=== PATIENT | male | born 1990 | race Two or more races ===

== ENCOUNTER 2017-09-09 22:22 | Emergency (ER) | payer MEDICARE, OTHER ==
[~2017-09-09] VITALS: Ht 165.1 cm; Wt 88.5 kg
[2017-09-09 22:47] VITALS: BP 108/67
[2017-09-10] MEDS ORDERED: KEFLEX500 MG ORAL (00:35)
[2017-09-10] MEDS ORDERED: BACTRIM DS TAB1 EAC1 ORAL (00:35)
[2017-09-10 00:50] VITALS: BP 108/67
--- NOTE | 2017-09-10 07:14 | Emergency Room Report ---
History of Present Illness General Chief Complaint: Skin Rash/Abscess Source: Family Member Present Illness HPI This is a 27-year-old male presented after increased redness and swelling to his right lower extremity. Patient gradual onset of symptoms. The patient had increased pain anterior for the past 2 days. He had not been having any fever. Patient prior history of Down syndrome. Allergies: Coded Allergies: No Known Allergies (Unverified , 09/09/17) Patient History Past Medical History: see triage record Reviewed Nursing Documentation: PMH: Agreed, PSxH: Agreed Review of Systems All Other Systems: negative except mentioned in HPI Physical Exam Vital Signs Date Time Temp Pulse Resp B/P (MAP) Pulse Ox O2 Delivery O2 Flow Rate FiO2 09/09/17 22:30 98.1 73 16 105/67 99 Room Air General Appearance: well appearing, no apparent distress, alert, GCS 15 Head: normocephalic, atraumatic ENT: hearing grossly normal, normal voice Neck: full range of motion, supple Respiratory: no respiratory distress, speaking full sentences Cardiovascular #1: normal inspection, normal peripheral pulses, regular rate, rhythm Gastrointestinal: normal inspection, non tender, soft Musculoskeletal: normal inspection, back normal, no calf tenderness Neurologic: normal inspection, alert, oriented x3, responsive, normal gait Psychiatric: mood/affect normal Skin: no rash, other - erythema to right pretibial area, no abscess Medical Decision Making Diagnostic Impression: Primary Impression: Cellulitis ER Course Patient presented for skin rash. Differential diagnosis included was not limited to abscess, cellulitis, folliculitis, erythema nodosum. Patient was given prescription for oral antibiotics. Patient given Keflex emergency department. The patient is advised to follow up with primary care doctor in 1 -2 days. Patient mom is advised to have patient return if any worsening condition or if any changes in status that are concerning. Other X-Ray Diagnostic Results Other X-Ray Diagnostic Results : # of Views/Limited Vs Complete: 2 View Indication: Pain EP Interpretation: Yes Interpretation: no dislocation, no soft tissue swelling, no fractures Impression: No acute disease Electronically Signed by: Electronically signed by Dr. Paras Reno M.D. Last Vital Signs Date Time Temp Pulse Resp B/P (MAP) Pulse Ox O2 Delivery O2 Flow Rate FiO2 09/10/17 00:50 98.1 88 16 108/67 99 Room Air Status: improved Disposition: HOME, SELF-CARE Condition: Stable Scripts Cephalexin* (KEFLEX*) 500 Mg Capsule 500 MG ORAL Q6H, #28 CAP 0 Refills Prov: Paras Reno 09/10/17 Trimethoprim/Sulfamethoxazole 160/800* (BACTRIM DS TABLET*) 1 Each Tablet 1 TAB ORAL TWICE A DAY, #14 TAB Prov: Paras Reno 09/10/17 Patient Instructions: Cellulitis Paras Reno Sep 10, 2017 07:14
--- NOTE | 2017-09-10 11:46 | Diagnostic Imaging Report ---
Indication: PAIN Technique: 2 views of the right tibia and fibula Comparison: none Findings: No acute fractures. No dislocations. Joint spaces are preserved Impression: Negative This agrees with the preliminary interpretation provided by the emergency room physician
== END 2017-09-10 00:50 | disposition home or self-care (01) ==
LOC: EMR 23:30
DX: L03.115 Cellulitis of right lower limb (principal); R21 Rash and other nonspecific skin eruption
CPT/HCPCS: 99284

== ENCOUNTER 2018-05-19 17:30 | Emergency (ER) | payer MEDICARE, OTHER ==
[~2018-05-19] VITALS: Ht 154.9 cm; Wt 81.6 kg
[~2018-05-19 17:30] MED LIST: BACTRIM DS TAB1 EAC1 ORAL; KEFLEX500 MG ORAL
[2018-05-19] MEDS ORDERED: Lidocaine 1% MPF 10mg/ml 5ml INJ ONE (18:30)
[2018-05-19] MEDS ORDERED: Tetanus/Diptheria/Pertussis Vaccine 0.5ml Syr IM ONE (18:30)
--- NOTE | 2018-05-19 18:46 | Emergency Room Report ---
History of Present Illness General Chief Complaint: Lower Extremity Injury Source: Patient, Medical Record Present Illness HPI 27-year-old male patient presents ER brought in by mother complaining of right big toe pain. Patient has history of Down syndrome. reports patient's foot "slipped" and kicked a chair. Reports nail is coming off his toe. denies hitting his head or loss consciousness. Denies other acute symptoms. Reports pain with ambulation. denies fever, chest pain, shortness of breath. Reports took pain medication. Allergies: Coded Allergies: No Known Allergies (Unverified , 09/09/17) Patient History Past Medical History: see triage record Reviewed Nursing Documentation: PMH: Agreed; PSxH: Agreed Nursing Documentation-PMH Past Medical History: No History, Except For Review of Systems All Other Systems: negative except mentioned in HPI Physical Exam Vital Signs Date Time Temp Pulse Resp B/P (MAP) Pulse Ox O2 Delivery O2 Flow Rate FiO2 05/19/18 17:38 98.2 68 18 113/66 97 Room Air 98.2 Sp02 EP Interpretation: reviewed, normal General Appearance: well appearing, no apparent distress, alert, GCS 15, non- toxic Head: normocephalic, atraumatic Eyes: bilateral eye normal inspection, bilateral eye PERRL ENT: hearing grossly normal, normal pharynx, no angioedema, normal voice, uvula midline, moist mucus membranes Neck: full range of motion Respiratory: lungs clear, normal breath sounds, no rhonchi, no respiratory distress, no accessory muscle use, no wheezing, speaking full sentences Cardiovascular #1: regular rate, rhythm, no edema Cardiovascular #2: 2+ dorsalis pedis (R), 2+ dorsalis pedis (L) Musculoskeletal: back normal, digits/nails normal, gait/station normal, normal range of motion, non-tender, other - right foot, big toe: Nail partially avulsed , no nailbed damage, able to visualize nail bed, tenderness to palpation Neurologic: alert, oriented x3, responsive, motor strength/tone normal, sensory intact Skin: no rash Medical Decision Making PA Attestation Dr. Danielle is my supervising Physician whom patient management has been discussed with. Diagnostic Impression: Primary Impression: Nail avulsion of toe ER Course Pt. presents to the ED c/o toenail avulsion Ddx considered but are not limited to fracture, toenail avulsion, nail bed injury, contusion. Vital signs: are WNL, pt. is afebrile ER COURSE: physical exam shows partially avulsed toenail on left big toe. No nail bed damage. X-ray of left foot shows no acute fracture of toe per the preliminary reading. Discussed result with patient. Consult with Dr. Tena marine fireman. Patient seen and evaluated by Dr. Tena, see his procedure note regarding toenail removal. Instructed to follow-up with Dr. Tena, provided with contact information. Consult Dr. Tena, will provide patient with Keflex at discharge to cover for possible infection. DISCHARGE: Rx provided for Keflex Rx provided for Tylenol At this time pt is stable for d/c to home. Patient is resting comfortably, in no acute distress, nontoxic appearing, talking without difficulty. Patient to take medications as instructed Will provide with patient care instructions and any necessary prescriptions. Care plan and follow-up instructions provided. Patient instructed to follow-up with primary care provider in 3 - 5 days. Patient questions asked and answered. Patient reports understanding and agreement to treatment plan. ER precautions given. Patient instructed to return to ER immediately for any new or worsening of symptoms including but not limited to increasing SOB, persistent fever, chest pain, intractable vomiting. - Please note that this Emergency Department Report was dictated using Javelintranscribing machine operator technology software, occasionally this can lead to erroneous entry secondary to interpretation by the dictation equipment. Other X-Ray Diagnostic Results Other X-Ray Diagnostic Results : X-Ray ordered: left foot # of Views/Limited Vs Complete: 3 View Indication: Pain EP Interpretation: Yes PA Xray: Interpretation reviewed, by supervising MD, and agrees with findings. Interpretation: no dislocation, no soft tissue swelling, no fractures, other - avulsed toenail visible Impression: No acute disease PA Scribe Text Kenji Kitchen PAAnanya Last Vital Signs Date Time Temp Pulse Resp B/P (MAP) Pulse Ox O2 Delivery O2 Flow Rate FiO2 05/19/18 17:38 98.2 68 18 113/66 97 Room Air 98.2 Disposition: HOME, SELF-CARE Condition: Stable Scripts Acetaminophen* (TYLENOL EXTRA STRENGTH*) 500 Mg Tablet 500 MG ORAL Q8H PRN for Prn Headache/Temp > 101, #30 TAB 0 Refills Prov: FidelinaUmair jack 05/19/18 Cephalexin* (KEFLEX*) 500 Mg Capsule 500 MG ORAL EVERY 12 HOURS, #14 CAP 0 Refills Prov: Umair Kitchen 05/19/18 Referrals: NOT CHOSEN IPA/,REFERRING (PCP) Patient Instructions: Fingernail or Toenail Removal, Care After, Ingrown Toenail Additional Instructions: Followup with primary care provider in 3 -5 days. Follow-up with marine fireman at scheduled appointment. Keep clean and dry. Take medications as directed. Patient questions asked and answered. ER precautions given, patient instructed to return to ER immediately for any new or worsening of symptoms. Umair Kitchen May 19, 2018 18:46
[2018-05-19] MEDS ORDERED: Bacitracin Oint UD TOPIC ONE ×2 (21:10→21:15)
[2018-05-19] MEDS ORDERED: CEPHALEXIN500 MG ORAL (21:24)
[2018-05-19] MEDS ORDERED: TYLENOL EXTRA500 MG ORAL (21:24)
[2018-05-19 21:44] VITALS: BP 112/66
--- NOTE | 2018-05-19 22:45 | Consultation ---
DATE OF CONSULTATION: 05/19/2018 APPROXIMATE TIME: 8:45 p.m. CONSULTING PHYSICIAN: Alex Tena M.D. HISTORY OF PRESENT ILLNESS: The patient's summary, the patient's mother states that he stubbed the left big toe on a chair and they states part of that nail tore off. This happened approximately two hours ago. The patient has had 6/10 pain to the left foot. The patient has Down syndrome and cannot care for himself. They came immediately to the hospital for treatment. OBJECTIVE: Upon examination, the patient had a thick mycotic toenail to the left big toe with 80% detachment along the medial and proximal aspect of the nail extending laterally into the proximal lateral nail fold with only 10% of the nail intact distally. There is surrounding erythema, but this is blanchable. No pus. No abscess. No underlying nail bed trauma. No open laceration is noted. There is no drainage. This is very painful to touch and tender. The rest of the toenails are mycotic. Pulses are 2/4 DP and PT pulses. Gross sensation intact to the bilateral foot. DIAGNOSTIC DATA: X-ray was negative for any fracture. ASSESSMENT: 1. Nail injury, left big toe, without laceration. 2. Pain, left big toe. 3. Contusion of left big toe. PLAN: Obtain consent for a procedure to remove the left big toe. PROCEDURE: Total nail avulsion, left big toe. We obtained consent and I anesthetized the left big toe with 4 mL of 1% lidocaine plain. Once I waited 10 minutes, we were able to remove the left big toe using mosquito forceps. This was easily excised and once this was, then flushed it with 20 mL of normal saline, applied bacitracin, 4 x 4, Kerlix, and tape. Sje can wash it, sewn tomorrow, and apply triple antibiotic and a 4 x 4 and tape. Discussed with the patient, I want him to follow up with me in two weeks. Discussed we will give him Keflex 500 mg b.i.d. for two weeks. He can be weightbearing if tolerated to the left foot and a surgical shoe. Discussed that toenail will likely grow out will be thicker. Discussed toenail fungus and how to treat it conservatively. Alex Tena M.D. DR: JONATHAN JOB#: [id number] CC:
--- NOTE | 2018-05-20 11:24 | Diagnostic Imaging Report ---
Indication: Pain, status post fall Technique: 3 views left foot Comparison: none Findings: No acute fractures. No dislocations. The joint spaces are preserved. Impression: Negative
== END 2018-05-19 21:44 | disposition home or self-care (01) ==
LOC: EMR 18:01
DX: S91.201A Unspecified open wound of right great toe with damage to nail, initial encounter (principal); W22.03XA Walked into furniture, initial encounter; Y92.9 Unspecified place or not applicable; Z23 Encounter for immunization
CPT/HCPCS: 90471; 90715; 99284

== ENCOUNTER 2019-01-09 07:32 | Inpatient (IN) | payer MEDICARE, OTHER ==
[~2019-01-09] VITALS: Ht 165.1 cm; Wt 91.6 kg
[2019-01-09] VITALS (7 sets, daily range): BP systolic 102–136; BP diastolic 52–106
[~2019-01-09 07:32] MED LIST changes: +CEPHALEXIN500 MG ORAL; +TYLENOL EXTRA500 MG ORAL
[2019-01-09] MEDS ORDERED: NKM (07:45)
--- NOTE | 2019-01-09 07:45 | NUR ---
ED Nurse Note: PT WALKED IN TO ER TODAY FROM HOME. AOX4. MOTHER AT BEDSIDE. PT C/O UPPER ABDOMINAL AND THROAT PAIN, 10/10 X 3 DAYS AGO. PT ALSO C/O NAUSEA X YESTERDAY AND ONE EPISODE OF DIARRHEA X THIS AM BUT DENIES ANY VOMITING. ACTIVE BOWEL SOUNDS IN ALL QUADRANTS. ABDOMEN NONDISTENDED AND NONTENDER TO PALPATION.
[2019-01-09] MEDS ORDERED: Morphine Sulfate 4mg/ml Inj (IV USE ONLY) IVP ONE (08:00)
--- NOTE | 2019-01-09 08:02 | Emergency Room Report ---
History of Present Illness General Chief Complaint: Abdominal Pain Source: Patient Present Illness HPI 28-year-old male with a history of Down syndrome, no surgical history, presents with epigastric achy constant nonradiating abdominal pain, sore throat, left nasal epistaxis, cough, and subjective fevers for the past 3 days. Patient admits to scratching his nose and having intermittent nosebleeds, denies odynophagia, urinary symptoms, diarrhea, but does report vomiting. Patient and mom reports that he is not on any regular medications, and has not tried anything for symptoms. Allergies: Coded Allergies: No Known Allergies (Unverified , 09/09/17) Patient History Past Medical History: see triage record Reviewed Nursing Documentation: PMH: Agreed; PSxH: Agreed Nursing Documentation-PMH Past Medical History: No History, Except For Review of Systems All Other Systems: negative except mentioned in HPI Physical Exam Vital Signs Date Time Temp Pulse Resp B/P (MAP) Pulse Ox O2 Delivery O2 Flow Rate FiO2 01/09/19 07:40 97.9 109 20 89/56 94 Room Air Sp02 EP Interpretation: reviewed, normal General Appearance: no apparent distress, alert, non-toxic Head: normocephalic Eyes: bilateral eye normal inspection, bilateral eye PERRL, bilateral eye EOMI ENT: normal ENT inspection - Left naris with dried blood, indicative of recent epistaxis, no active bleeding, no posterior oropharyngeal bleeding, hearing grossly normal, normal pharynx, no angioedema, normal voice, uvula midline, dry mucus membranes Neck: normal inspection, full range of motion, supple, thyroid normal, no meningismus, no bony tend, supple/symm/no masses Respiratory: chest non-tender, lungs clear, normal breath sounds, no rhonchi, no respiratory distress, no retraction, no accessory muscle use, no wheezing, chest symmetrical, palpation of chest normal Cardiovascular #1: normal peripheral pulses, regular rate, rhythm Cardiovascular #2: 2+ radial (R), 2+ radial (L) Gastrointestinal: normal inspection, non tender, soft, no mass, no guarding, no rebound Rectal: deferred Genitourinary: normal inspection, no CVA tenderness Musculoskeletal: back normal, gait/station normal, normal range of motion, non- tender, no calf tenderness Neurologic: alert, responsive, clinical administrator III-XII nml as tested - strabismus, motor strength/tone normal, sensory intact, speech normal Psychiatric: mood/affect normal Skin: normal color, no rash, warm/dry, normal turgor Lymphatic: adenopathy - B/L submandibular LAD Medical Decision Making Last Vital Signs Date Time Temp Pulse Resp B/P (MAP) Pulse Ox O2 Delivery O2 Flow Rate FiO2 01/09/19 07:40 97.9 109 20 89/56 94 Room Air Referrals: NOT CHOSEN IPA/,REFERRING (PCP) JOSE HOYT M.D Jan 09, 2019 08:02
--- NOTE | 2019-01-09 08:22 | NUR ---
ED Nurse Note: PT TO CT VIA ZACH.
[2019-01-09 08:24] LABS: HEMATOCRIT 30.6 % (42.0-52.0); HEMOGLOBIN 10.8 G/DL (14.2-18.0); MEAN CORPUSCULAR VOLUME 96 FL (80-99); PLATELET COUNT 29 K/UL (150-450); RED BLOOD COUNT 3.19 M/UL (4.70-6.10); RED CELL DISTRIBUTION WIDTH 15.4 % (11.6-14.8)
--- NOTE | 2019-01-09 08:30 | NUR ---
ED Nurse Note: CALLED LAB TO VERIFY IF STREP A SCREEN CAN BE DONE. PER PROJECT ACCOUNTANT, LAB UNABLE TO RUN STREP A SCREEN. WILL NOTIFTY
[2019-01-09] MEDS ORDERED: Piperacillin/Tazobactam 3.375 GM in D5W 110 ML IV STA (08:42)
[2019-01-09] MEDS ORDERED: Isovue-300 100ml vial INJ PRN ×2 (08:45→18:10)
[2019-01-09 08:51] LABS: ANION GAP 10 mmol/L (5-15); BLOOD UREA NITROGEN 17 mg/dL (7-18); CALCIUM 9.4 MG/DL (8.5-10.1); CARBON DIOXIDE 25 MMOL/L (21-32); CHLORIDE 101 MMOL/L (98-107); CREATININE 1.6 MG/DL (0.55-1.30); SODIUM 136 MMOL/L (136-145)
[2019-01-09 09:02] LABS: ALANINE AMINOTRANSFERASE 70 U/L (12-78); ALBUMIN 3.1 G/DL (3.4-5.0); ALBUMIN/GLOBULIN RATIO 0.8 (1.0-2.7); ALKALINE PHOSPHATASE 252 U/L (46-116); ASPARTATE AMINO TRANSFERASE 132 U/L (15-37); BILIRUBIN,TOTAL 1.2 MG/DL (0.2-1.0)
[2019-01-09 09:04] LABS: BILIRUBIN,DIRECT 0.4 MG/DL (0.0-0.3)
--- NOTE | 2019-01-09 09:09 | Diagnostic Imaging Report ---
EXAM: CT Abdomen and Pelvis Without Intravenous Contrast CLINICAL HISTORY: PAIN TECHNIQUE: Axial computed tomography images of the abdomen and pelvis without intravenous contrast. CTDI is 18.99 mGy and DLP is 1040 mGy-cm. One or more of the following dose reduction techniques were used: automated exposure control, adjustment of the mA and/or kV according to patient size, use of iterative reconstruction technique. COMPARISON: No relevant prior studies available. FINDINGS: Lung bases: Unremarkable. No consolidation. No effusions. ABDOMEN: Liver: Diffusely hypodense liver, suggesting fatty infiltration. Gallbladder and bile ducts: Cholelithiasis without gallbladder wall thickening or ductal dilatation. Pancreas: Unremarkable. No ductal dilation. Spleen: Splenomegaly, with a craniocaudal diameter of 16.6 cm. Nonspecific mild adjacent mesenteric inflammatory stranding extending down the left paracolic gutter. Adrenals: Unremarkable. No mass. Kidneys and ureters: Unremarkable. No obstructing stones. No hydronephrosis. Stomach and bowel: Unremarkable. No obstruction. No mucosal thickening. PELVIS: Appendix: Mild thickening of the appendiceal tip to 7 mm with minimal adjacent inflammatory stranding. Bladder: Mild diffuse urinary bladder wall thickening, most likely related to underdistention. No stones. Reproductive: Unremarkable as visualized. ABDOMEN and PELVIS: Intraperitoneal space: Trace free fluid in the pelvis. No free air. Bones/joints: Bilateral L5 spondylolysis without evidence of spondylolisthesis. No acute fracture. No dislocation. Soft tissues: Unremarkable. Vasculature: Unremarkable. No abdominal aortic aneurysm. Lymph nodes: Scattered subcentimeter mesenteric and retroperitoneal lymph nodes, and scattered bilateral inguinal nodes, likely reactive. No pathologically enlarged lymph nodes. IMPRESSION: 1. Splenomegaly, with a craniocaudal diameter of 16.6 cm. Nonspecific mild adjacent mesenteric inflammatory stranding extending down the left paracolic gutter. 2. Mild thickening of the appendiceal tip to 7 mm with minimal adjacent inflammatory stranding. Cannot completely exclude an early uncomplicated appendicitis. 3. Trace free fluid in the pelvis. 4. Cholelithiasis without gallbladder wall thickening or ductal dilatation. 5. Diffusely hypodense liver, suggesting fatty infiltration. 6. Mild diffuse urinary bladder wall thickening, most likely related to underdistention. Differential diagnosis also includes mild cystitis. No radiodense stones or evidence of obstructive uropathy. 7. Bilateral L5 spondylolysis without evidence of spondylolisthesis.
--- NOTE | 2019-01-09 09:11 | Diagnostic Imaging Report ---
EXAM: XR Chest, 1 View CLINICAL HISTORY: COUGH TECHNIQUE: Frontal view of the chest. COMPARISON: No relevant prior studies available. FINDINGS: Lungs: Mildly increased interstitial markings. Decreased lung volumes, likely related to shallow inspiration. The lungs are otherwise clear without focal consolidation. Pleural space: Unremarkable. The costophrenic angles are sharp. No visible pneumothorax. Heart: Unremarkable. No cardiomegaly. Mediastinum: Unremarkable. Bones/joints: Unremarkable. Tubes, lines and devices: Telemetry leads overlie the thorax. IMPRESSION: Mildly increased interstitial markings. This is nonspecific and may be related to bronchovascular crowding from decreased lung volumes. Differential diagnosis also includes mild pulmonary vascular congestion or a mild interstitial pneumonitis. No focal consolidation.
[2019-01-09 09:23] LABS: APPEARANCE,URINE CLEAR; BILIRUBIN, URINE NEGATIVE (NEGATIVE); COLOR,URINE BROWN; GLUCOSE, URINE (UA) NEGATIVE (NEGATIVE); KETONES,URINE 1+ (NEGATIVE); LEUKOCYTE ESTERASE ,URINE 1+ (NEGATIVE); NITRITE,URINE NEGATIVE (NEGATIVE); PH,URINE 5 (4.5-8.0); PROTEIN,URINE 3+ (NEGATIVE); UROBILINOGEN,URINE 1 MG/DL (0.0-1.0)
--- NOTE | 2019-01-09 09:36 | NUR ---
ED Nurse Note: PT BACK TO CT VIA ZACH
--- NOTE | 2019-01-09 09:52 | NUR ---
ED Nurse Note: PT BACK FROM CT VIA ZACH.
--- NOTE | 2019-01-09 10:40 | Diagnostic Imaging Report ---
EXAM: CT Neck With Intravenous Contrast CLINICAL HISTORY: Left facial abscess, facial pain. TECHNIQUE: Axial computed tomography images of the neck with intravenous contrast. CTDI is 21 mGy and DLP is 686 mGy-cm. One or more of the following dose reduction techniques were used: automated exposure control, adjustment of the mA and/or kV according to patient size, use of iterative reconstruction technique. Coronal and sagittal reformatted images were created and reviewed. COMPARISON: No relevant prior studies available. FINDINGS: Oropharynx: Unremarkable. No significant tonsillar enlargement. No peritonsillar abscess. Hypopharynx: Unremarkable. Larynx: Unremarkable. Normal epiglottis. Trachea: Unremarkable. Retropharyngeal space: Unremarkable. Submandibular/parotid glands: Unremarkable. Glands are normal in size. Thyroid: Unremarkable. No enlarged or calcified nodules. Bones/joints: No acute fracture. Soft tissues: Mild skin thickening and subcutaneous stranding overlying the left face maxillary and mandibular regions with no underlying subcutaneous fluid collections or abscess. Vasculature: Unremarkable as visualized. Lymph nodes: Bilateral enlarged submandibular and cervical chain lymph nodes, likely reactive. Sinuses: Mild mucosal thickening in the ethmoid air cells, sphenoid sinus, bilateral maxillary sinuses. No sinus air-fluid levels. Lung apices: Unremarkable as visualized. IMPRESSION: 1. Mild skin thickening and subcutaneous stranding overlying the left face maxillary and mandibular regions with no underlying subcutaneous fluid collections or abscess. This likely represents cellulitis. 2. Bilateral enlarged submandibular and cervical chain lymph nodes, likely reactive.
--- NOTE | 2019-01-09 11:25 | NUR ---
ED Nurse Note: CALLED [facility] FOR PT TRANSFER. RN NOT READY AT THIS TIME. EXTENSION GIVEN TO MAINTENANCE TECHNICIAN 2ND SHIFT FOR CALL BACK.
--- NOTE | 2019-01-09 12:15 | NUR ---
ED Nurse Note: [facility] CALLED FOR PT TRANSFER. REPORT GIVEN TO PADMA LUNA. PT TAKEN UP TO [facility] VIA GURNEY WITH ALL BELONGINGS ACCOMPANIED BY EMT.
--- NOTE | 2019-01-09 14:24 | NUR ---
NURSE NOTES: Received pt from PADMA DOSS at 1230. pt is accompanied by his mom. pt is orient x3. pt is in RA. No SOB or acute respiratory distress noted. pt has intact iv access LAC 20g SL. Pt has bleeding from tong, pain bilateral abdomen, swollen neck and redness on the left side of neck. called Dr franco x3 left massage for secretary specialist AGUILA about admission orders and about V/S and lab results, and pt's condition but hasn't called back yet. charge nurse is aware. all needs attended, bed is locked and is in the lowest position. call light within easy reach. will continue to monitor.
--- NOTE | 2019-01-09 15:39 | NUR ---
NURSE NOTES: Dr franco called back, he is aware about pt ' fever and tachy cardia and all pt's conditions , all orders noted and carried out. will continue to monitor.
--- NOTE | 2019-01-09 16:04 | Cardiac Electrophysiology PN ---
Subjective Subjective [id number] Objective Last 24 Hour Vital Signs Date Time Temp Pulse Resp B/P (MAP) Pulse Ox O2 Delivery O2 Flow Rate FiO2 01/09/19 12:48 100.6 128 21 136/100 (112) 94 01/09/19 12:30 100.6 128 20 136/100 (112) 94 01/09/19 12:14 98.3 106 20 124/76 95 Room Air 01/09/19 09:40 98.4 109 22 119/70 96 Room Air 01/09/19 07:45 98.2 105 20 113/63 96 Room Air 01/09/19 07:45 105 20 Room Air 01/09/19 07:40 97.9 109 20 89/56 94 Room Air Laboratory Tests Test 01/09/19 08:10 White Blood Count 146.0 K/UL (4.8-10.8) *H Red Blood Count 3.19 M/UL (4.70-6.10) L Hemoglobin 10.8 G/DL (14.2-18.0) L Hematocrit 30.6 % (42.0-52.0) L Mean Corpuscular Volume 96 FL (80-99) Mean Corpuscular Hemoglobin 33.9 PG (27.0-31.0) H Mean Corpuscular Hemoglobin Concent 35.4 G/DL (32.0-36.0) Red Cell Distribution Width 15.4 % (11.6-14.8) H Platelet Count 29 K/UL (150-450) L Mean Platelet Volume 8.4 FL (6.5-10.1) Neutrophils (%) (Auto) % (45.0-75.0) Lymphocytes (%) (Auto) % (20.0-45.0) Monocytes (%) (Auto) % (1.0-10.0) Eosinophils (%) (Auto) % (0.0-3.0) Basophils (%) (Auto) % (0.0-2.0) Neutrophils % (Manual) Pending Lymphocytes % (Manual) Pending Platelet Estimate Pending Platelet Morphology Pending Urine Color Brown Urine Appearance Clear Urine pH 5 (4.5-8.0) Urine Specific [place] 1.015 (1.005-1.035) Urine Protein 3+ (NEGATIVE) H Urine Glucose (UA) Negative (NEGATIVE) Urine Ketones 1+ (NEGATIVE) H Urine Blood Negative (NEGATIVE) Urine Nitrite Negative (NEGATIVE) Urine Bilirubin Negative (NEGATIVE) Urine Urobilinogen 1 MG/DL (0.0-1.0) H Urine Leukocyte Esterase 1+ (NEGATIVE) H Urine RBC 0 /HPF (0 - 0) Urine WBC 0-2 /HPF (0 - 0) Urine Squamous Epithelial Cells Few /LPF (NONE/OCC) Urine Bacteria Few /HPF (NONE) Sodium Level 136 MMOL/L (136-145) Potassium Level 4.0 MMOL/L (3.5-5.1) Chloride Level 101 MMOL/L (98-107) Carbon Dioxide Level 25 MMOL/L (21-32) Anion Gap 10 mmol/L (5-15) Blood Urea Nitrogen 17 mg/dL (7-18) Creatinine 1.6 MG/DL (0.55-1.30) H Estimat Glomerular Filtration Rate 52.1 mL/min (>60) Glucose Level 96 MG/DL (74-106) Calcium Level 9.4 MG/DL (8.5-10.1) Total Bilirubin 1.2 MG/DL (0.2-1.0) H Direct Bilirubin 0.4 MG/DL (0.0-0.3) H Aspartate Amino Transf (AST/SGOT) 132 U/L (15-37) H Alanine Aminotransferase (ALT/SGPT) 70 U/L (12-78) Alkaline Phosphatase 252 U/L (46-116) H Total Protein 7.1 G/DL (6.4-8.2) Albumin 3.1 G/DL (3.4-5.0) L Globulin 4.0 g/dL Albumin/Globulin Ratio 0.8 (1.0-2.7) L Lipase 119 U/L (73-393) Ede Alexander MD Jan 09, 2019 16:04
[2019-01-09] MEDS ORDERED: cefTRIAXone 1 GM in D5W 55 ML IVPB SCH (16:30)
--- NOTE | 2019-01-09 17:30 | NUR ---
NURSE NOTES: Dr broussard visited pt and ordered for stat ECG done and result reported to Dr broussard and ordered to transfer pt. Dr VILLAR is aware about consult. pt transfered to [facility]. report given to DONYA/ALIDA.
[2019-01-09 17:33] LABS: INR 1.2 (0.9-1.1)
[2019-01-09 17:44] LABS: HEMATOCRIT 26.8 % (42.0-52.0); HEMOGLOBIN 9.3 G/DL (14.2-18.0); MEAN CORPUSCULAR VOLUME 94 FL (80-99); PLATELET COUNT 11 K/UL (150-450); RED BLOOD COUNT 2.86 M/UL (4.70-6.10); RED CELL DISTRIBUTION WIDTH 15.2 % (11.6-14.8)
--- NOTE | 2019-01-09 17:45 | NUR ---
Received pt from PADMA Wood in stable condition with no cardiopulmonary distress. Pt hooked to monitoring and evaluation advisor. VS as follows: T 101.2 Oral HR 128 bpm SaO2 97% RR 26 and BP 102/63. Pt is AAOx 4 accompanied with parents. Pt on 2L O2 NC. Urinal at bedside. Pt is ambulatory and can use bathroom for BM- however, family states no BM since yesterday. L ac 20g noted running NS at 100ml/hr. Swelling + redness noted on left neck area, and mild tongue bleeding consistent with admission notes. Petechiae noted near groin area and upper arms correlating with low platelet count. Family states petechiae showed up a few days prior to admission. No c/o pain at this time. Placed ice pack below pt's neck to relieve fever. Tylenol was given before transfer. Will continue to monitor pt. Bed is in lowest position. Side rails up x 3. Call light within reach. Addendum: 01/09/19 at 1819 by Daylin Torres RN Late entry: Pt has no belongings.
[2019-01-09] MEDS ORDERED: Vancomycin 1.5gm Premix q24h IVPB SCH (18:00)
[2019-01-09] MEDS ORDERED: Vancomycin 1.5gm Premix 275 ML IVPB SCH (18:11)
--- NOTE | 2019-01-09 19:21 | NUR ---
HAND-OFF: Report given to PADMA Quiñonez. Pt in stable condition.
--- NOTE | 2019-01-09 19:25 | NUR ---
NURSE NOTES: Observed pt lying on the bed. A/O x3. ST with conveyor monitor, HR of 107. On 2L NC, no signs of SOB. Left neck swelling noted and checked CT neck report indicates possible cellulitis and enlarged lymph nodes. Mild tongue bleeding noted. IV on L AC 20G, running NS 100ml/hr. Bed in the lowest position. Side rails up x2. Family member at the bedside. Will continue to monitor.
[2019-01-09] MEDS ORDERED: Piperacillin/Tazobactam 4.5 GM in D5W 110 ML IVPB SCH (22:00)
[2019-01-09] MEDS: Piperacillin/Tazobactam 4.5 GM in D5W 110 ML IVPB SCH (22:16)
--- NOTE | 2019-01-09 23:45 | Consultation ---
DATE OF CONSULTATION: 01/09/2019 CARDIOLOGY CONSULTATION CONSULTING PHYSICIAN: Ede Alexander M.D. ATTENDING PHYSICIAN: Jonah Barahona M.D. REASON FOR CONSULTATION: Tachycardia. HISTORY OF PRESENT ILLNESS: The patient is a 28-year-old gentleman with history of Down syndrome, who presented to the emergency room with epigastric pain as well as sore throat and left nasal epistaxis. The patient has been having fever for the last 2 days. The patient has been scratching his nose. There have been intermittent nosebleeds. The patient initially was found to have blood pressure in the 80s and pulse of 120s. His WBC was more than 140,000. The patient was admitted and Cardiology consultation was requested for further evaluation. Reportedly, the patient had some sort of cancer a few years ago. He was not on any therapy, but reports he had surgery to remove it in his right groin, but there was no obvious scar. REVIEW OF SYSTEMS: Negative other than what was mentioned in the history of present illness. PAST MEDICAL HISTORY: As mentioned above. FAMILY HISTORY: Noncontributory. SOCIAL HISTORY: He lives at home. Does not smoke or drink alcohol. PHYSICAL EXAMINATION: VITAL SIGNS: Blood pressure 136/100, pulse 128, respirations 18, and temperature 100.6. HEAD AND NECK: Showed no JVD. LUNGS: Clear. CARDIOVASCULAR: Shows tachycardic, S1 and S2 with no gallop. ABDOMEN: Soft. EXTREMITIES: No pitting edema. LABORATORY DATA: His labs showed white count of 146,000, hemoglobin 10.8, hematocrit 30, and platelet count is only 29,000. Sodium 136, potassium 4.0, BUN of 17, creatinine 1.6, and glucose of 96. His urinalysis shows 3+ protein and 1+ leukocyte esterase. ASSESSMENT AND PLAN: 1. Tachycardia. In view of the patient's sepsis, elevated white count could be due to underlying infection. The patient was started on ceftriaxone and Zosyn. Further evaluation per ID. I will get an EKG and echocardiogram and check his thyroid function tests. 2. Elevated white count of 146,000 as well as severe thrombocytopenia with platelet count only 29,000. Hematology evaluation is needed. 3. Abdominal pain, elevated bilirubin of 1.2, and elevated AST and alkaline phosphatase. Evaluation per GI. 4. Down syndrome. Thank you very much, Dr. Barahona, for following me to participate in the care of this patient. Please do not hesitate to contact me for any questions regarding my evaluation. Ede Alexander M.D. DR: Martha JOB#: [id number] CC:
[2019-01-10] VITALS: BP 107/60
[2019-01-10 04:00] VITALS: BP 113/67
[2019-01-10] MEDS ORDERED: Vancomycin 1gm in D5W 275ml IVPB SCH (06:00)
[2019-01-10] MEDS: Vancomycin 1 GM in D5W 275 ML IVPB SCH ×2 (06:11→18:33)
[2019-01-10] MEDS: Piperacillin/Tazobactam 4.5 GM in D5W 110 ML IVPB SCH ×3 (06:12→22:50)
--- NOTE | 2019-01-10 07:25 | NUR ---
HAND-OFF: Report given to PADMA Martino. No acute distress noted at this time.
--- NOTE | 2019-01-10 07:26 | NUR ---
NURSE NOTES: Received Patient from Romain Major RN. Patient in bed and awake. On 2L NC. In no respiratory distress. 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 Left side of neck swollen with mild bleeding on the mouth. Mom at bedside. Bed in lowest position with side rails up. Will continue to follow plan of care.
[2019-01-10 07:34] LABS: HEMATOCRIT 24.2 % (42.0-52.0); HEMOGLOBIN 8.6 G/DL (14.2-18.0); MEAN CORPUSCULAR VOLUME 95 FL (80-99); RED BLOOD COUNT 2.55 M/UL (4.70-6.10); RED CELL DISTRIBUTION WIDTH 15.3 % (11.6-14.8)
[2019-01-10 07:40] LABS: PLATELET COUNT 6 K/UL (150-450); WHITE BLOOD COUNT 28.7 K/UL (4.8-10.8)
[2019-01-10 08:00] VITALS: BP 99/58
--- NOTE | 2019-01-10 09:00 | NUR ---
NURSE NOTES: Dr. Smallwood at bedside and informed him about patient's HGB 8.6 HCT 24.2 PLT 6. Received an order for 1 unit PRBC. Order carried out.
--- NOTE | 2019-01-10 11:56 | NUR ---
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 Bilirubin 1.2, AST 132, Urine Protein 3+, Urine Ketones 1+ ABDOMINAL / PELVIS CT FINDINGS: Liver: Diffusely hypodense liver, suggesting fatty infiltration. Gallbladder and bile ducts: Cholelithiasis without gallbladder wall thickening or ductal dilatation. Spleen: Splenomegaly, with a craniocaudal diameter of 16.6 cm. Nonspecific mild adjacent mesenteric inflammatory stranding extending down the left paracolic gutter. IS:NS x1L IV PIPERACILLIN 110ml IVPB VANCOMYCIN HCI 275 ml IVPB ALBUTEROL 3ml HHN LORAZEPAM 2mg IV MORPHINE 2mg IVP ADMITTED TO SD[facility] DC PLAN: RETURN HOME
[2019-01-10 12:00] VITALS: BP 104/58
--- NOTE | 2019-01-10 13:42 | Infectious Diseases Prog Note ---
Assessment/Plan Problems: (1) Cellulitis of neck Assessment & Plan: severe with significant swelling, will continue zosyn and vancomycin empirically , recommend ENT eval . CT neck no abscess (2) Cellulitis of cheek Assessment & Plan: with no underlying abscess , continue vancomycin and zosyn empirically (3) Sepsis Assessment & Plan: with significant leukocytosis , may need to rule out bone marrow pathology ( ALL, AML) , Will continue vancomycin and zosyn empirically pending blood cultures. recommend hematology eval . (4) Thrombocytopenia Assessment & Plan: rule out bone marrow pathology VS consumption due to sepsis . close monitor of platelets and transfuse if bleeding (5) Appendicitis Assessment & Plan: possible on CT ABD, already on zosyn ,recommend surgical eval Subjective Constitutional: Reports: fever, anorexia HEENT: Reports: other - left cheeck swelling Respiratory: Reports: no symptoms Breasts: Reports: no symptoms Cardiovascular: Reports: no symptoms Gastrointestinal/Abdominal: Reports: no symptoms Genitourinary: Reports: no symptoms Neurologic: Reports: no symptoms Psychiatric: Reports: no symptoms Skin: Reports: other - bruises Endocrine: Reports: no symptoms Hematologic: Reports: swollen lymph nodes, bleeding Allergies: Coded Allergies: No Known Allergies (Unverified , 09/09/17) Subjective feels a little better today , and less febrile Objective Vital Signs Last 24 Hour Vital Signs Date Time Temp Pulse Resp B/P (MAP) Pulse Ox O2 Delivery O2 Flow Rate FiO2 01/10/19 12:00 100.2 108 22 104/58 (73) 96 01/10/19 12:00 Nasal Cannula 2.0 01/10/19 11:16 111 01/10/19 08:02 104 01/10/19 08:00 99.7 107 22 99/58 (72) 98 01/10/19 08:00 Nasal Cannula 2.0 01/10/19 04:00 99.5 108 24 113/67 (82) 97 01/10/19 04:00 Nasal Cannula 2.0 01/10/19 03:20 98.5 01/10/19 00:00 Nasal Cannula 2.0 01/10/19 00:00 99.7 107 24 107/60 (76) 98 01/09/19 21:30 99.2 01/09/19 21:00 99.7 01/09/19 20:53 99.7 01/09/19 20:00 Nasal Cannula 2.0 01/09/19 20:00 107 01/09/19 20:00 102.7 107 24 105/52 (69) 97 01/09/19 17:50 101.2 128 26 102/63 (76) 97 01/09/19 16:40 101.8 01/09/19 16:00 102.6 109 21 133/106 (115) 99 Height (Feet): 5 Height (Inches): 5.00 Weight (Pounds): 200 General Appearance: no acute distress, other - left cheeck and neck swelling and bruises HEENT: atraumatic, anicteric, mucous membranes moist, PERRL, EOMI, pharynx normal, no JVD, other - left neck swelling and cheeck swelling Respiratory/Chest: chest wall non-tender, normal breath sounds, no respiratory distress, no accessory muscle use Cardiovascular: normal peripheral pulses, normal rate, regular rhythm, no gallop/murmur, no JVD Abdomen: normal bowel sounds, soft, non tender, no organomegaly, non distended , no mass, no scars Extremities: no cyanosis, no clubbing Skin: no rash, no lesions, no ulcers 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, alert, responsive Lymphatic: no groin adenopathy, other - neck adenopathy Musculoskeletal: normal muscle bulk, no effusion Microbiology Date/Time Source Procedure Growth Status 01/09/19 09:00 Blood Blood Culture - Preliminary Resulted 01/09/19 08:45 Blood Blood Culture - Preliminary Resulted Laboratory Tests Test 01/09/19 17:10 01/10/19 06:52 White Blood Count 72.0 K/UL (4.8-10.8) #*H 28.7 K/UL (4.8-10.8) #*H Red Blood Count 2.86 M/UL (4.70-6.10) L 2.55 M/UL (4.70-6.10) L Hemoglobin 9.3 G/DL (14.2-18.0) L 8.6 G/DL (14.2-18.0) L Hematocrit 26.8 % (42.0-52.0) L 24.2 % (42.0-52.0) L Mean Corpuscular Volume 94 FL (80-99) 95 FL (80-99) Mean Corpuscular Hemoglobin 32.5 PG (27.0-31.0) H 34.0 PG (27.0-31.0) H Mean Corpuscular Hemoglobin Concent 34.6 G/DL (32.0-36.0) 35.7 G/DL (32.0-36.0) Red Cell Distribution Width 15.2 % (11.6-14.8) H 15.3 % (11.6-14.8) H Platelet Count 11 K/UL (150-450) #L 6 K/UL (150-450) *L Mean Platelet Volume 9.0 FL (6.5-10.1) 12.3 FL (6.5-10.1) H Neutrophils (%) (Auto) % (45.0-75.0) % (45.0-75.0) Lymphocytes (%) (Auto) % (20.0-45.0) % (20.0-45.0) Monocytes (%) (Auto) % (1.0-10.0) % (1.0-10.0) Eosinophils (%) (Auto) % (0.0-3.0) % (0.0-3.0) Basophils (%) (Auto) % (0.0-2.0) % (0.0-2.0) Neutrophils % (Manual) Pending Pending Lymphocytes % (Manual) Pending Pending Platelet Estimate Pending Pending Platelet Morphology Pending Pending Reticulocyte Count 0.4 % (0.0-2.0) Haptoglobin Pending Prothrombin Time 12.7 SEC (9.30-11.50) H Prothromb Time International Ratio 1.2 (0.9-1.1) H Fibrinogen 288 mg/dL (200-400) Uric Acid 10.9 MG/DL (2.6-7.2) H Lactate Dehydrogenase 1722 U/L (81-234) H Vitamin B12 Level 811 PG/ML (193-986) Folate 16.8 NG/ML (8.6-58.9) Homocystine Pending CBC Comment See comment Pro-B-Type Natriuretic Peptide 2534 pg/mL (0-125) H Thyroid Stimulating Hormone (TSH) 1.962 uiU/mL (0.358-3.740) Free Thyroxine 0.97 NG/DL (0.76-1.46) Current Medications Medications (Trade) Dose Ordered Sig/Curtis Route PRN Reason Start Time Stop Time Status Last Admin Dose Admin Acetaminophen (Tylenol) 650 mg Q4H PRN ORAL Mild Pain/Temp > 100.5 01/09/19 18:10 02/08/19 18:09 01/10/19 12:41 Albuterol/ Ipratropium (Albuterol/ Ipratropium) 3 ml Q4HRT HHN 01/10/19 15:00 01/15/19 14:59 Iopamidol (Isovue-300 100ml) 100 ml NOW PRN INJ Radiology Procedure 01/09/19 18:10 01/10/19 18:09 Piperacillin Sod/ Tazobactam Sod 4.5 gm/Dextrose 110 ml @ 27.5 mls/hr EVERY 8 HOURS IVPB 01/09/19 22:00 01/14/19 21:59 01/10/19 06:12 Sodium Chloride 1,000 ml @ 100 mls/hr Q10H IV 01/09/19 18:10 02/08/19 18:09 01/10/19 05:43 Vancomycin HCl (Vanco rx to dose) 1 ea DAILY PRN MISC Per rx protocol 01/10/19 09:00 02/08/19 16:14 Vancomycin HCl 1 gm/Dextrose 275 ml @ 183.708 mls/hr Q12HR@0600,1800 IVPB 01/10/19 06:00 01/15/19 05:59 01/10/19 06:11 Bradley Mccord M.D. Jan 10, 2019 13:42
[2019-01-10] MEDS: Albuterol/Ipratropium 3ml neb HHN SCH ×3 (14:58→22:47)
[2019-01-10 16:00] VITALS: BP 106/64
--- NOTE | 2019-01-10 17:15 | Consultation ---
DATE OF CONSULTATION: 01/09/2019 CONSULTING PHYSICIAN: Bradley Mccord M.D. REQUESTING PHYSICIAN: Jonah Barahona M.D. REASON FOR CONSULTATION: Severe left neck and cheek cellulitis with soft tissue infection complicated with severe sepsis and recommendation for antimicrobial treatment. HISTORY OF PRESENT ILLNESS: The patient is a 28-year-old male with past medical history of Down syndrome, who was brought into [facility] emergency room with left cheek and neck significant swelling with bruises and sore throat with left nasal epistaxis. Symptom was associated with cough and fever for almost three days. The patient had itchy nose and intermittent nose bleeding for the last couple of weeks. He does not remember how he developed the swelling in his neck and cheek, but they started about three days ago and they have been getting worse. No injury or trauma to the left neck or cheek and no recent dental work. No skin injury or breakdown. The patient was found to have pulse of 109 with blood pressure of 89/56, concerning for sepsis. His leukocytosis was significantly high at 104,000, so he was given Zosyn in the emergency room and Infectious Disease consultation was requested for antibiotics treatment and further management. As of note, the patient is a poor historian, cannot provide good history. History was mainly obtained from the medical record and partially from his mother at the bedside. REVIEW OF SYSTEMS: A 14-point of systems reviewed, were all negative apart from the one I mentioned above in my History and Physical. PAST MEDICAL HISTORY: Significant for Down syndrome and nose bleeding. PAST SURGICAL HISTORY: Negative. SOCIAL HISTORY: The patient lives with mother at home. No recent drugs, tobacco, or alcohol. ALLERGIES: No known drug allergies. MEDICATIONS: The patient received Zosyn in the emergency room. For the rest of his medications, please refer to MAR. LABORATORY DATA: Labs showed white count of [id number], hemoglobin of 10.8, and platelet count of 29,000. BUN of 17 and creatinine of 1.6. AST of 132, ALT of 70, alkaline phosphatase of 252, and albumin of 3.1. Urinalysis showed +1 leukocyte esterase and a few bacteria. IMAGING: Chest x-ray showed interstitial markings, nonspecific. CT scan of abdomen and pelvis without contrast showed splenomegaly with mesenteric inflammatory stranding and mild thickening of the appendiceal tip with minimal adjacent inflammatory stranding, trace free fluid in the pelvis, cholelithiasis without gallbladder wall thickening, and hypodense liver. Neck CT scan showed skin thickening and subcutaneous stranding, overlying the left face, maxillary, and mandibular region with no underlying subcutaneous fluid collections or abscess. Bilaterally enlarged submandibular and cervical chain lymph nodes, likely reactive. PHYSICAL EXAMINATION: VITAL SIGNS: Temperature 101.2, pulse 128, respirations 26, blood pressure 102/63, pulse oximetry 97% on 2 L nasal cannula. GENERAL: General young male, morbidly obese with significant left neck and cheek swelling and bruises, lying in bed, ill-looking can, and not in acute distress. HEENT: He had left cheek soft tissue swelling with bruises, local tenderness, no fluctuation. Pupils reactive to light equally. Moist oral mucosa. No exudate or thrush. No decays. NECK: Obese, swollen and tender on the left side with bruises. No fluctuation. Significant lymphocytosis in the submandibular and neck area. CARDIOVASCULAR: Tachycardic. S1, S2 positive. No murmur. LUNG: Clear bilaterally and diminished breathing sounds at the bases with fine crackles. ABDOMEN: Soft, obese, nontender, and nondistended. Normal bowel sounds. No hepatosplenomegaly. No ascites. EXTREMITIES: No edema or cyanosis, but bruises. GENITOURINARY: Normal genitalia. No Bhandari. ASSESSMENT AND RECOMMENDATION: 1. Cellulitis of the neck and cheek, severe with significant swelling. We will start Zosyn and vancomycin empirically. Recommend ENT evaluation. CT neck showed no abscess. 2. Possible appendicitis with tip swelling and reactive inflammatory change. We will start the patient on Zosyn. Recommend surgical evaluation. 3. Sepsis with significant leukocytosis, may need to rule out bone marrow pathology such as a ALL or AML. We will start him on vancomycin and Zosyn empiric coverage pending blood cultures. Recommend Hematology evaluation. 4. Thrombocytopenia, rule out bone marrow pathology versus consumption due to sepsis. Close monitor of platelets and transfuse if bleeding and Hematology evaluation as needed. Thank you for the consult. ID will continue to follow. Please feel free to call with any question. Bradley Mccord M.D. DR: BRENNA JOB#: [id number] CC:
--- NOTE | 2019-01-10 17:39 | Consultation ---
History of Present Illness General Chief Complaint: Abdominal Pain Present Illness Allergies: Coded Allergies: No Known Allergies (Unverified , 09/09/17) Medication History Scheduled Cephalexin* (Keflex*), 500 MG ORAL Q6H Cephalexin* (Keflex*), 500 MG ORAL EVERY 12 HOURS No Known Medications* (NKM - No Known Medications*), 0 ., (Reported) Trimethoprim/Sulfamethoxazole 160/800* (Bactrim Ds Tablet*), 1 TAB ORAL TWICE A DAY Scheduled PRN Acetaminophen* (Tylenol Extra Strength*), 500 MG ORAL Q8H PRN for Prn Headache/ Temp > 101 Patient History Healthcare decision maker Resuscitation status Full Code Advanced Directive on File Physical Exam Last 24 Hour Vital Signs Date Time Temp Pulse Resp B/P (MAP) Pulse Ox O2 Delivery O2 Flow Rate FiO2 01/10/19 16:00 Nasal Cannula 2.0 01/10/19 16:00 97.9 91 22 106/64 (78) 95 01/10/19 15:08 92 21 96 Nasal Cannula 2.0 28 01/10/19 14:59 90 20 98 Nasal Cannula 3.0 32 01/10/19 14:47 90 20 Nasal Cannula 3.0 32 01/10/19 13:45 97.9 01/10/19 12:00 100.2 108 22 104/58 (73) 96 01/10/19 12:00 Nasal Cannula 2.0 01/10/19 11:16 111 01/10/19 08:02 104 01/10/19 08:00 99.7 107 22 99/58 (72) 98 01/10/19 08:00 Nasal Cannula 2.0 01/10/19 04:00 99.5 108 24 113/67 (82) 97 01/10/19 04:00 Nasal Cannula 2.0 01/10/19 03:20 98.5 01/10/19 00:00 Nasal Cannula 2.0 01/10/19 00:00 99.7 107 24 107/60 (76) 98 01/09/19 21:30 99.2 01/09/19 21:00 99.7 01/09/19 20:53 99.7 01/09/19 20:00 Nasal Cannula 2.0 01/09/19 20:00 107 01/09/19 20:00 102.7 107 24 105/52 (69) 97 3/16/19 17:50 101.2 128 26 102/63 (76) 97 Intake and Output 01/09/19 01/10/19 19:00 07:00 Intake Total 2355 ml 1525.0 ml Output Total 1000 ml Balance 2355 ml 525.0 ml Intake Oral 120 ml 240 ml IV Total 2235 ml 1285.0 ml Output Urine Total 1000 ml # Voids 2 2 Laboratory Tests Test 01/10/19 06:52 White Blood Count 28.7 K/UL (4.8-10.8) #*H Red Blood Count 2.55 M/UL (4.70-6.10) L Hemoglobin 8.6 G/DL (14.2-18.0) L Hematocrit 24.2 % (42.0-52.0) L Mean Corpuscular Volume 95 FL (80-99) Mean Corpuscular Hemoglobin 34.0 PG (27.0-31.0) H Mean Corpuscular Hemoglobin Concent 35.7 G/DL (32.0-36.0) Red Cell Distribution Width 15.3 % (11.6-14.8) H Platelet Count 6 K/UL (150-450) *L Mean Platelet Volume 12.3 FL (6.5-10.1) H Neutrophils (%) (Auto) % (45.0-75.0) Lymphocytes (%) (Auto) % (20.0-45.0) Monocytes (%) (Auto) % (1.0-10.0) Eosinophils (%) (Auto) % (0.0-3.0) Basophils (%) (Auto) % (0.0-2.0) CBC Comment See comment Neutrophils % (Manual) Pending Lymphocytes % (Manual) Pending Platelet Estimate Pending Platelet Morphology Pending Pro-B-Type Natriuretic Peptide 2534 pg/mL (0-125) H Thyroid Stimulating Hormone (TSH) 1.962 uiU/mL (0.358-3.740) Free Thyroxine 0.97 NG/DL (0.76-1.46) Height (Feet): 5 Height (Inches): 5.00 Weight (Pounds): 200 Medications Current Medications Medications (Trade) Dose Ordered Sig/Curtis Route PRN Reason Start Time Stop Time Status Last Admin Dose Admin Acetaminophen (Tylenol) 650 mg Q4H PRN ORAL Mild Pain/Temp > 100.5 01/09/19 18:10 02/08/19 18:09 01/10/19 12:41 Albuterol/ Ipratropium (Albuterol/ Ipratropium) 3 ml Q4HRT HHN 01/10/19 15:00 01/15/19 14:59 01/10/19 14:58 Iopamidol (Isovue-300 100ml) 100 ml NOW PRN INJ Radiology Procedure 01/09/19 18:10 01/10/19 18:09 Piperacillin Sod/ Tazobactam Sod 4.5 gm/Dextrose 110 ml @ 27.5 mls/hr EVERY 8 HOURS IVPB 01/09/19 22:00 01/14/19 21:59 01/10/19 13:58 Sodium Chloride 1,000 ml @ 100 mls/hr Q10H IV 01/09/19 18:10 02/08/19 18:09 01/10/19 14:25 Vancomycin HCl (Vanco rx to dose) 1 ea DAILY PRN MISC Per rx protocol 01/10/19 09:00 02/08/19 16:14 Vancomycin HCl 1 gm/Dextrose 275 ml @ 183.708 mls/hr Q12HR@0600,1800 IVPB 01/10/19 06:00 01/15/19 05:59 01/10/19 06:11 Assessment/Plan Assessment/Plan Hematology Oncology Consultation LIZA MD: Jun Medina DOS: 01/10/19 RFC: Anemia, Severe leukocytosis HPI 28-year-old male with a history of Down syndrome, no surgical history, presents with epigastric achy constant nonradiating abdominal pain, sore throat, left nasal epistaxis, cough, and subjective fevers for the past 3 days. Patient admits to scratching his nose and having intermittent nosebleeds, denies odynophagia, urinary symptoms, diarrhea, but does report vomiting. Patient and mom reports that he is not on any regular medications, and has not tried anything for symptoms. Noted to joao kinney a history of potential malignancy, but full history is unknown, says had a inguinal biopsy 4 years ago but was never treated for cancer. At this time have ordered a bone marrow biopsy. Coded Allergies: No Known Allergies (Unverified , 09/09/17) Past Medical History: see triage record Reviewed Nursing Documentation: PMH: Agreed; PSxH: Agreed Past Medical History: No History, Except For Review of Systems: negative except mentioned in HPI Physical Exam General Appearance: A+O x3, NAD HEENT: normocephalic, atraumatic, ++ left mandible cellulitis and swelling Neck: non-tender, normal alignment Respiratory/Chest: chest wall non-tender, lungs clear Cardiovascular/Chest: normal peripheral pulses, normal rate Abdomen: normal bowel sounds, non tender Extremities: normal range of motion Vital Signs Current Medications Medications (Trade) Dose Ordered Sig/Curtis Route PRN Reason Start Time Stop Time Status Last Admin Dose Admin Acetaminophen (Tylenol) 650 mg Q4H PRN ORAL Mild Pain/Temp > 100.5 01/09/19 18:10 02/08/19 18:09 01/10/19 12:41 Albuterol/ Ipratropium (Albuterol/ Ipratropium) 3 ml Q4HRT HHN 01/10/19 15:00 01/15/19 14:59 01/10/19 14:58 Iopamidol (Isovue-300 100ml) 100 ml NOW PRN INJ Radiology Procedure 01/09/19 18:10 01/10/19 18:09 Piperacillin Sod/ Tazobactam Sod 4.5 gm/Dextrose 110 ml @ 27.5 mls/hr EVERY 8 HOURS IVPB 01/09/19 22:00 01/14/19 21:59 01/10/19 13:58 Sodium Chloride 1,000 ml @ 100 mls/hr Q10H IV 01/09/19 18:10 02/08/19 18:09 01/10/19 14:25 Vancomycin HCl (Vanco rx to dose) 1 ea DAILY PRN MISC Per rx protocol 01/10/19 09:00 02/08/19 16:14 Vancomycin HCl 1 gm/Dextrose 275 ml @ 183.708 mls/hr Q12HR@0600,1800 IVPB 01/10/19 06:00 01/15/19 05:59 01/10/19 06:11 Last 24 Hour Vital Signs Date Time Temp Pulse Resp B/P (MAP) Pulse Ox O2 Delivery O2 Flow Rate FiO2 01/10/19 16:00 Nasal Cannula 2.0 01/10/19 16:00 97.9 91 22 106/64 (78) 95 01/10/19 15:08 92 21 96 Nasal Cannula 2.0 28 01/10/19 14:59 90 20 98 Nasal Cannula 3.0 32 01/10/19 14:47 90 20 Nasal Cannula 3.0 32 01/10/19 13:45 97.9 01/10/19 12:00 100.2 108 22 104/58 (73) 96 01/10/19 12:00 Nasal Cannula 2.0 01/10/19 11:16 111 01/10/19 08:02 104 01/10/19 08:00 99.7 107 22 99/58 (72) 98 01/10/19 08:00 Nasal Cannula 2.0 01/10/19 04:00 99.5 108 24 113/67 (82) 97 01/10/19 04:00 Nasal Cannula 2.0 01/10/19 03:20 98.5 01/10/19 00:00 Nasal Cannula 2.0 01/10/19 00:00 99.7 107 24 107/60 (76) 98 01/09/19 21:30 99.2 01/09/19 21:00 99.7 01/09/19 20:53 99.7 01/09/19 20:00 Nasal Cannula 2.0 01/09/19 20:00 107 01/09/19 20:00 102.7 107 24 105/52 (69) 97 01/09/19 17:50 101.2 128 26 102/63 (76) 97 Laboratory Tests Test 01/10/19 06:52 White Blood Count 28.7 K/UL (4.8-10.8) #*H Red Blood Count 2.55 M/UL (4.70-6.10) L Hemoglobin 8.6 G/DL (14.2-18.0) L Hematocrit 24.2 % (42.0-52.0) L Mean Corpuscular Volume 95 FL (80-99) Mean Corpuscular Hemoglobin 34.0 PG (27.0-31.0) H Mean Corpuscular Hemoglobin Concent 35.7 G/DL (32.0-36.0) Red Cell Distribution Width 15.3 % (11.6-14.8) H Platelet Count 6 K/UL (150-450) *L Mean Platelet Volume 12.3 FL (6.5-10.1) H Neutrophils (%) (Auto) % (45.0-75.0) Lymphocytes (%) (Auto) % (20.0-45.0) Monocytes (%) (Auto) % (1.0-10.0) Eosinophils (%) (Auto) % (0.0-3.0) Basophils (%) (Auto) % (0.0-2.0) CBC Comment See comment Neutrophils % (Manual) Pending Lymphocytes % (Manual) Pending Platelet Estimate Pending Platelet Morphology Pending Pro-B-Type Natriuretic Peptide 2534 pg/mL (0-125) H Thyroid Stimulating Hormone (TSH) 1.962 uiU/mL (0.358-3.740) Free Thyroxine 0.97 NG/DL (0.76-1.46) ROS: Difficult to ascertain given mental status # SEVERE Leukocytosis/Elevated white blood cell count, unspecified likely related to underlying infection versus LEUKEMIA or LYMPHOMA --> have reviewed peripheral smear and bandemia/neutrophilia noted --> will eval for DIC process, r/o elev coagulopathy --> continue antibiotics if they have been started by ID team --> have ordered for bone marrow biopsy rule out malignancy --> will discuss with pathology regarding pathology results --> repeat imaging if symptoms worsen --> platelet goal >20k, and hgb goal >7 # Anemia of chronic disease (or of iron deficiency) due to underlying chronic medical issues, multifactorial --> Anemia workup has been ordered --> No evidence of hemolysis is noted, peripheral smear has been reviewed. --> Hgb goal >7. Transfuse prn. --> Epogen or iron at this time is not particularly indicated --> Medications have been reviewed # Cellulitis of the neck with significant swelling --> on abx empirically # Sepsis with significant leukocytosis on abx as per ID --> appreciate id recs The timing of this note does not necessarily reflect the time of the patient was seen Greatly appreciate consultation! Feliz Smallwood MD Jan 10, 2019 17:39
--- NOTE | 2019-01-10 19:15 | NUR ---
HAND-OFF: Report given to Romain Major RN. Patient stable and RN aware patient is receiving 1 unit PRBC.
--- NOTE | 2019-01-10 19:20 | NUR ---
NURSE NOTES: Report received from PADMA Martino. Observed pt getting PRBC, no acute distress noted at this time. Denies any pain. SR with heel reducer. On NC 2L, no signs of sob noted. IV on L AC 20 G, R H 20 G, intact and patent. Bed in the lowest position. Side rails up x2. Will continue to monitor.
[2019-01-10] MEDS ORDERED: Tubing Blood Filter IV ONE (19:35)
[2019-01-10] MEDS ORDERED: NS 275ml ONE (19:35)
[2019-01-10] MEDS ORDERED: Tubing IV Secondary IV ONE (19:35)
[2019-01-10 20:00] VITALS: BP 114/69
--- NOTE | 2019-01-10 23:00 | NUR ---
NURSE NOTES: Pt mother signed consent for bone marrow biopsy. Instruction printed and given in Estonian.
--- NOTE | 2019-01-10 23:50 | NUR ---
NURSE NOTES: Pt had 1 pack of platelet transfusion and no adverse reaction noted. Will continue to monitor.
[2019-01-11] VITALS: BP 126/72
--- NOTE | 2019-01-11 00:20 | NUR ---
NURSE NOTES: Temperature of 100.6 noted and PRN med given. Will continue to monitor.
--- NOTE | 2019-01-11 01:00 | NUR ---
NURSE NOTES: Temperature of 99.1 noted. Observed pt sleeping on the bed. Will continue to monitor.
[2019-01-11] MEDS: Albuterol/Ipratropium 3ml neb HHN SCH ×6 (03:04→22:56)
[2019-01-11 04:00] VITALS: BP 111/58
[2019-01-11] MEDS: Piperacillin/Tazobactam 4.5 GM in D5W 110 ML IVPB SCH ×3 (06:26→21:44)
[2019-01-11] MEDS: Vancomycin 1 GM in D5W 275 ML IVPB SCH (06:49)
--- NOTE | 2019-01-11 07:15 | NUR ---
HAND-OFF: Report given to PADMA Martino.
--- NOTE | 2019-01-11 07:17 | NUR ---
NURSE NOTES: Received patient from Romain Major RN. Patient in bed, awake, and verbally responsive. On cardiac care unit nurse with HR of 109. On 2L NC. In no respiratory distress. Urinal at bedside. Bed in lowest position with side rails up. Will continue to follow plan of care.
[2019-01-11 08:00] VITALS: BP 134/82
[2019-01-11 08:04] LABS: HEMATOCRIT 26.9 % (42.0-52.0); HEMOGLOBIN 9.5 G/DL (14.2-18.0); MEAN CORPUSCULAR VOLUME 95 FL (80-99); PLATELET COUNT 18 K/UL (150-450); RED BLOOD COUNT 2.84 M/UL (4.70-6.10); RED CELL DISTRIBUTION WIDTH 14.6 % (11.6-14.8); WHITE BLOOD COUNT 19.2 K/UL (4.8-10.8)
[2019-01-11 08:07] LABS: ANION GAP 10 mmol/L (5-15); BLOOD UREA NITROGEN 17 mg/dL (7-18); CALCIUM 8.3 MG/DL (8.5-10.1); CARBON DIOXIDE 25 MMOL/L (21-32); CHLORIDE 102 MMOL/L (98-107); CREATININE 1.4 MG/DL (0.55-1.30); SODIUM 137 MMOL/L (136-145)
[2019-01-11] MEDS ORDERED: Morphine Sulfate 2mg/ml Inj(IV/IM USE ONLY) IVP PRN (10:00)
[2019-01-11] MEDS ORDERED: LORazepam Inj 2mg/ml 1ml IV PRN (10:00)
--- NOTE | 2019-01-11 11:55 | PATHOLOGY BONE BARROW ---
Bone Marrow Aspirate & Biopsy . PROCEDURE: Bone Marrow Aspirate and Biopsy INDICATION: Leucocytosis PROCEDURE TIE BINDER: Deepika Medel M.D. CONSENT: Consent was previously obtained from the patients mother. The risks and benefits were re-explained. The patient agreed to undergo the procedure. A TIMEOUT WAS EXECUTED: Yes PROCEDURE SUMMARY: The patient was laid in the side position. The left posterior iliac crest was prepped and draped in a sterile fashion. The crest of the posterior iliac was located, and the skin as well as surface of the bone was anesthetized with 2% lidocaine. An aspirating needle was introduced, the bone marrow aspirate was not obtained due to dry tap. This was withdrawn the coring needle was advanced into the bone cavity. A bone marrow biopsy was obtained without any complications. ESTIMATED BLOOD LOSS: Negligible REPORTS TO FOLLOW DEEPIKA MEDEL Jan 11, 2019 11:55
[2019-01-11 12:00] VITALS: BP 105/42
--- NOTE | 2019-01-11 12:06 | NUR ---
NURSE NOTES: Bone marrow biopsy was done at bedside with pathologist and patient's mother. Patient is stable. No adverse effects. Pressure is put from the area where the biopsy was done. Made Dr. Smallwood aware. Also, informed Dr. Smallwood about patient's PLT of 18.
--- NOTE | 2019-01-11 12:30 | NUR ---
NURSE NOTES: Dressing on the area where biopsy was done is not soiled. Will continue to monitor.
--- NOTE | 2019-01-11 13:29 | Cardiac Electrophysiology PN ---
Assessment/Plan Assessment/Plan 1. Tachycardia. In view of the patient's sepsis, elevated white count could be due to underlying infection. The patient was started on ceftriaxone and Zosyn. Further evaluation per ID. Echo EF 65% 2. Elevated white count of 146,000 as well as severe thrombocytopenia with platelet count only 6,000. Hematology evaluation noted. S/P BM Biopsy 3. Abdominal pain, elevated bilirubin of 1.2, and elevated AST and alkaline phosphatase. Evaluation per GI. 4. Down syndrome. Subjective Subjective Has pain at site of BM Biopsy Objective Last 24 Hour Vital Signs Date Time Temp Pulse Resp B/P (MAP) Pulse Ox O2 Delivery O2 Flow Rate FiO2 01/11/19 09:17 101 18 100 Nasal Cannula 2.0 28 01/11/19 09:10 99 20 93 Room Air 21 01/11/19 08:00 Nasal Cannula 2.0 01/11/19 08:00 98.4 101 20 134/82 (99) 93 01/11/19 07:55 Nasal Cannula 01/11/19 07:55 Nasal Cannula 01/11/19 07:40 100 01/11/19 04:00 98.7 98 24 111/58 (75) 92 01/11/19 04:00 Nasal Cannula 2.0 01/11/19 04:00 112 01/11/19 03:11 100 18 100 Nasal Cannula 2.0 28 01/11/19 03:04 97 18 97 Nasal Cannula 2.0 28 01/11/19 01:19 99.1 01/11/19 00:40 99.1 01/11/19 00:00 Nasal Cannula 2.0 01/11/19 00:00 100.6 113 24 126/72 (90) 96 01/11/19 00:00 126 01/10/19 22:58 99 20 100 Nasal Cannula 2.0 28 01/10/19 22:47 99 20 98 Nasal Cannula 2.0 28 01/10/19 20:00 99 01/10/19 20:00 98.4 95 20 114/69 (84) 97 01/10/19 20:00 Nasal Cannula 2.0 01/10/19 19:17 84 20 100 Nasal Cannula 2.0 28 01/10/19 19:07 92 18 95 Nasal Cannula 2.0 28 01/10/19 16:00 Nasal Cannula 2.0 01/10/19 16:00 97.9 91 22 106/64 (78) 95 01/10/19 15:20 102 01/10/19 15:08 92 21 96 Nasal Cannula 2.0 28 01/10/19 14:59 90 20 98 Nasal Cannula 3.0 32 01/10/19 14:47 90 20 Nasal Cannula 3.0 32 01/10/19 13:45 97.9 Intake and Output 01/10/19 01/11/19 19:00 07:00 Intake Total 1670.833 ml 1222.583 ml Output Total 500 ml 800 ml Balance 1170.833 ml 422.583 ml Intake Oral 200 ml 500 ml IV Total 1470.833 ml 722.583 ml Output Urine Total 500 ml 800 ml # Voids 1 2 Laboratory Tests Test 01/11/19 04:40 White Blood Count 19.2 K/UL (4.8-10.8) H Red Blood Count 2.84 M/UL (4.70-6.10) L Hemoglobin 9.5 G/DL (14.2-18.0) L Hematocrit 26.9 % (42.0-52.0) L Mean Corpuscular Volume 95 FL (80-99) Mean Corpuscular Hemoglobin 33.6 PG (27.0-31.0) H Mean Corpuscular Hemoglobin Concent 35.4 G/DL (32.0-36.0) Red Cell Distribution Width 14.6 % (11.6-14.8) Platelet Count 18 K/UL (150-450) #L Mean Platelet Volume 7.8 FL (6.5-10.1) Neutrophils (%) (Auto) % (45.0-75.0) Lymphocytes (%) (Auto) % (20.0-45.0) Monocytes (%) (Auto) % (1.0-10.0) Eosinophils (%) (Auto) % (0.0-3.0) Basophils (%) (Auto) % (0.0-2.0) Differential Total Cells Counted 100 Neutrophils % (Manual) 10 % (45-75) L Lymphocytes % (Manual) 68 % (20-45) H Monocytes % (Manual) 6 % (1-10) Eosinophils % (Manual) 0 % (0-3) Basophils % (Manual) 0 % (0-2) Blast Cells % 14 % (0-0) *H Band Neutrophils 2 % (0-8) Smudge Cells Occasional Platelet Estimate Decreased L Platelet Morphology Normal Anisocytosis 1+ Sodium Level 137 MMOL/L (136-145) Potassium Level 4.0 MMOL/L (3.5-5.1) Chloride Level 102 MMOL/L (98-107) Carbon Dioxide Level 25 MMOL/L (21-32) Anion Gap 10 mmol/L (5-15) Blood Urea Nitrogen 17 mg/dL (7-18) Creatinine 1.4 MG/DL (0.55-1.30) H Estimat Glomerular Filtration Rate > 60 mL/min (>60) Glucose Level 104 MG/DL (74-106) Calcium Level 8.3 MG/DL (8.5-10.1) L Vancomycin Level Trough 9.9 ug/mL (5.0-12.0) Microbiology Date/Time Source Procedure Growth Status 01/09/19 09:00 Blood Blood Culture - Preliminary Streptococcus Species Resulted 01/09/19 08:45 Blood Blood Culture - Preliminary Streptococcus Species Resulted 01/10/19 10:40 Urine,Clean Catch Urine Culture - Preliminary NO GROWTH Resulted Objective HEAD AND NECK: No JVD. LUNGS: Clear. CARDIOVASCULAR: Tachycardic, S1 and S2 with no gallop. ABDOMEN: Soft. EXTREMITIES: No pitting edema. Ede Alexander MD Jan 11, 2019 13:29
[2019-01-11] MEDS ORDERED: Vancomycin 1 GM in D5W 275 ML IVPB SCH (14:00)
[2019-01-11 16:00] VITALS: BP 121/66
--- NOTE | 2019-01-11 16:56 | General Progress Note ---
Assessment/Plan Assessment/Plan # SEVERE Leukocytosis/Elevated white blood cell count, unspecified likely related to underlying infection versus LEUKEMIA or LYMPHOMA -->01/11: today, saw that the weekend cbc has been addended, and BLASTS are noted on it, up to 65%, have placed order to transfer to higher level of care --> have reviewed peripheral smear and bandemia/neutrophilia noted --> will eval for DIC process, r/o elev coagulopathy --> continue antibiotics if they have been started by ID team --> have ordered for bone marrow biopsy rule out malignancy (has been completed 01/11) --> will discuss with pathology regarding pathology results --> have placed order to transfer to higher level of care as blasts are now noted on the peripheral smear, concerning for leukemia --> platelet goal >20k, and hgb goal >7 # Anemia of chronic disease (or of iron deficiency) due to underlying chronic medical issues, multifactorial --> Anemia workup has been ordered --> No evidence of hemolysis is noted, peripheral smear has been reviewed. --> Hgb goal >7. Transfuse prn. --> Epogen or iron at this time is not particularly indicated --> Medications have been reviewed # Cellulitis of the neck with significant swelling --> on abx empirically # Sepsis with significant leukocytosis on abx as per ID --> appreciate id recs The timing of this note does not necessarily reflect the time of the patient was seen Greatly appreciate consultation! Subjective Constitutional: Denies: no symptoms, chills, diaphoresis, fever, malaise, weakness, other HEENT: Denies: no symptoms, eye pain, blurred vision, tearing, double vision, ear pain, ear discharge, nose pain, nose congestion, throat pain, throat swelling, mouth pain, mouth swelling, other Cardiovascular: Denies: no symptoms, chest pain, edema, irregular heart rate, lightheadedness, palpitations, syncope, other Respiratory: Denies: no symptoms, cough, orthopnea, shortness of breath, SOB with excertion, SOB at rest, sputum, stridor, wheezing, other Gastrointestinal/Abdominal: Denies: no symptoms, abdomen distended, abdominal pain, black stools, tarry stools, blood in stool, constipated, diarrhea, difficulty swallowing, nausea, poor appetite, poor fluid intake, rectal bleeding , vomiting, other Genitourinary: Denies: no symptoms, burning, discharge, frequency, flank pain, hematuria, incontinence, pain, urgency, other Neurologic/Psychiatric: Denies: no symptoms, anxiety, depressed, emotional problems, headache, numbness, paresthesia, pre-existing deficit, seizure, tingling, tremors, weakness, other Endocrine: Denies: no symptoms, excessive sweating, flushing, intolerance to cold, intolerance to heat, increased hunger, increased thirst, increased urine, unexplained weight gain, unexplained weight loss, other Allergies: Coded Allergies: No Known Allergies (Unverified , 09/09/17) Subjective 01/11: today, saw that the weekend cbc has been addended, and BLASTS are noted on it, up to 65%, have placed order to transfer to higher level of care Objective Last 24 Hour Vital Signs Date Time Temp Pulse Resp B/P (MAP) Pulse Ox O2 Delivery O2 Flow Rate FiO2 01/11/19 15:45 99 20 99 Nasal Cannula 2.0 28 01/11/19 15:38 65 20 97 Nasal Cannula 2.0 28 01/11/19 12:00 Nasal Cannula 2.0 01/11/19 12:00 97.7 102 20 105/42 (63) 100 01/11/19 11:44 101 01/11/19 09:17 101 18 100 Nasal Cannula 2.0 28 01/11/19 09:10 99 20 93 Room Air 21 01/11/19 08:00 Nasal Cannula 2.0 01/11/19 08:00 98.4 101 20 134/82 (99) 93 01/11/19 07:55 Nasal Cannula 01/11/19 07:55 Nasal Cannula 01/11/19 07:40 100 01/11/19 04:00 98.7 98 24 111/58 (75) 92 01/11/19 04:00 Nasal Cannula 2.0 01/11/19 04:00 112 01/11/19 03:11 100 18 100 Nasal Cannula 2.0 28 01/11/19 03:04 97 18 97 Nasal Cannula 2.0 28 01/11/19 01:19 99.1 01/11/19 00:40 99.1 01/11/19 00:00 Nasal Cannula 2.0 01/11/19 00:00 100.6 113 24 126/72 (90) 96 01/11/19 00:00 126 01/10/19 22:58 99 20 100 Nasal Cannula 2.0 28 01/10/19 22:47 99 20 98 Nasal Cannula 2.0 28 01/10/19 20:00 99 01/10/19 20:00 98.4 95 20 114/69 (84) 97 01/10/19 20:00 Nasal Cannula 2.0 01/10/19 19:17 84 20 100 Nasal Cannula 2.0 28 01/10/19 19:07 92 18 95 Nasal Cannula 2.0 28 Intake and Output 01/10/19 01/11/19 19:00 07:00 Intake Total 1670.833 ml 1222.583 ml Output Total 500 ml 800 ml Balance 1170.833 ml 422.583 ml Intake Oral 200 ml 500 ml IV Total 1470.833 ml 722.583 ml Output Urine Total 500 ml 800 ml # Voids 1 2 Laboratory Tests 01/11/19 04:40: White Blood Count 19.2H, Red Blood Count 2.84L, Hemoglobin 9.5L, Hematocrit 26.9L, Mean Corpuscular Volume 95, Mean Corpuscular Hemoglobin 33.6H, Mean Corpuscular Hemoglobin Concent 35.4, Red Cell Distribution Width 14.6, Platelet Count 18#L, Mean Platelet Volume 7.8, Neutrophils (%) (Auto) , Lymphocytes (%) ( Auto) , Monocytes (%) (Auto) , Eosinophils (%) (Auto) , Basophils (%) (Auto) , Differential Total Cells Counted 100, Neutrophils % (Manual) 10L, Lymphocytes % (Manual) 68H, Monocytes % (Manual) 6, Eosinophils % (Manual) 0, Basophils % ( Manual) 0, Blast Cells % 14*H, Band Neutrophils 2, Smudge Cells Occasional, Platelet Estimate DecreasedL, Platelet Morphology Normal, Anisocytosis 1+, Sodium Level 137, Potassium Level 4.0, Chloride Level 102, Carbon Dioxide Level 25, Anion Gap 10, Blood Urea Nitrogen 17, Creatinine 1.4H, Estimat Glomerular Filtration Rate > 60, Glucose Level 104, Calcium Level 8.3L, Vancomycin Level Trough 9.9 Height (Feet): 5 Height (Inches): 5.00 Weight (Pounds): 200 Objective Physical Exam General Appearance: A+O x3, NAD HEENT: normocephalic, atraumatic, ++ left mandible cellulitis and swelling Neck: non-tender, normal alignment Respiratory/Chest: chest wall non-tender, lungs clear Cardiovascular/Chest: normal peripheral pulses, normal rate Abdomen: normal bowel sounds, non tender Extremities: normal range of motion Vital Signs Feliz Smallwood MD Jan 11, 2019 16:56
--- NOTE | 2019-01-11 18:54 | Infectious Diseases Prog Note ---
Assessment/Plan Problems: (1) Cellulitis of neck Assessment & Plan: severe with significant swelling, due to invasive streptococcus spp , will continue zosyn empiric treatment for now . recommend ENT eval if symptoms worsen . CT neck no abscess (2) Cellulitis of cheek Assessment & Plan: with no underlying abscess , continue vancomycin and zosyn empirically (3) Sepsis Assessment & Plan: with significant leukocytosis , suspect due to bone marrow pathology ( ALL, AML) , Will continue zosyn empirically pending final blood cultures. had bone marrow biopsy , hematology is following (4) Thrombocytopenia Assessment & Plan: suspect bone marrow pathology and possible consumption due to sepsis . close monitor of platelets and transfuse if bleeding (5) Appendicitis Assessment & Plan: possible on CT ABD, already on zosyn ,recommend surgical eval Subjective Constitutional: Reports: no symptoms, other HEENT: Reports: other - left neck swelling and bruises Respiratory: Reports: no symptoms Breasts: Reports: no symptoms Cardiovascular: Reports: no symptoms Gastrointestinal/Abdominal: Reports: no symptoms Genitourinary: Reports: no symptoms Neurologic: Reports: no symptoms Psychiatric: Reports: no symptoms Skin: Reports: other - bruises Endocrine: Reports: no symptoms Hematologic: Reports: swollen lymph nodes, bleeding Musculoskeletal: Reports: pain Allergies: Coded Allergies: No Known Allergies (Unverified , 09/09/17) Subjective feels a little better today , and less febrile Objective Vital Signs Last 24 Hour Vital Signs Date Time Temp Pulse Resp B/P (MAP) Pulse Ox O2 Delivery O2 Flow Rate FiO2 01/11/19 16:00 97.0 89 22 121/66 (84) 99 01/11/19 16:00 Nasal Cannula 2.0 01/11/19 15:45 99 20 99 Nasal Cannula 2.0 28 01/11/19 15:44 88 01/11/19 15:38 65 20 97 Nasal Cannula 2.0 28 01/11/19 12:00 Nasal Cannula 2.0 01/11/19 12:00 97.7 102 20 105/42 (63) 100 01/11/19 11:44 101 01/11/19 09:17 101 18 100 Nasal Cannula 2.0 28 01/11/19 09:10 99 20 93 Room Air 21 01/11/19 08:00 Nasal Cannula 2.0 01/11/19 08:00 98.4 101 20 134/82 (99) 93 3/18/19 07:55 Nasal Cannula 01/11/19 07:55 Nasal Cannula 01/11/19 07:40 100 01/11/19 04:00 98.7 98 24 111/58 (75) 92 01/11/19 04:00 Nasal Cannula 2.0 01/11/19 04:00 112 01/11/19 03:11 100 18 100 Nasal Cannula 2.0 28 01/11/19 03:04 97 18 97 Nasal Cannula 2.0 28 01/11/19 01:19 99.1 01/11/19 00:40 99.1 01/11/19 00:00 Nasal Cannula 2.0 01/11/19 00:00 100.6 113 24 126/72 (90) 96 01/11/19 00:00 126 01/10/19 22:58 99 20 100 Nasal Cannula 2.0 28 01/10/19 22:47 99 20 98 Nasal Cannula 2.0 28 01/10/19 20:00 99 01/10/19 20:00 98.4 95 20 114/69 (84) 97 01/10/19 20:00 Nasal Cannula 2.0 01/10/19 19:17 84 20 100 Nasal Cannula 2.0 28 01/10/19 19:07 92 18 95 Nasal Cannula 2.0 28 Height (Feet): 5 Height (Inches): 5.00 Weight (Pounds): 200 General Appearance: WD/WN, no acute distress, other - left facial and neck swelling with bruises HEENT: atraumatic, anicteric, mucous membranes moist, PERRL, EOMI, pharynx normal, supple, no JVD, other - left neck swelling Respiratory/Chest: chest wall non-tender, lungs clear, normal breath sounds, no respiratory distress, no accessory muscle use Cardiovascular: normal peripheral pulses, normal rate, regular rhythm, no gallop/murmur, no JVD Abdomen: normal bowel sounds, soft, non tender, no organomegaly, non distended , no mass, no scars Genitourinary: normal external genitalia Extremities: no cyanosis, no clubbing Skin: no rash, no lesions, no ulcers, other - skin bruises Neurologic/Psychiatric: 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, no motor/sensory deficits, alert, oriented x 3, responsive Lymphatic: other - left neck and submandibular lymphaedenopathy Musculoskeletal: normal muscle bulk, no effusion Microbiology Date/Time Source Procedure Growth Status 01/09/19 09:00 Blood Blood Culture - Preliminary Streptococcus Species Resulted 01/09/19 08:45 Blood Blood Culture - Preliminary Streptococcus Species Resulted 01/10/19 10:40 Urine,Clean Catch Urine Culture - Preliminary NO GROWTH Resulted Laboratory Tests Test 01/11/19 04:40 White Blood Count 19.2 K/UL (4.8-10.8) H Red Blood Count 2.84 M/UL (4.70-6.10) L Hemoglobin 9.5 G/DL (14.2-18.0) L Hematocrit 26.9 % (42.0-52.0) L Mean Corpuscular Volume 95 FL (80-99) Mean Corpuscular Hemoglobin 33.6 PG (27.0-31.0) H Mean Corpuscular Hemoglobin Concent 35.4 G/DL (32.0-36.0) Red Cell Distribution Width 14.6 % (11.6-14.8) Platelet Count 18 K/UL (150-450) #L Mean Platelet Volume 7.8 FL (6.5-10.1) Neutrophils (%) (Auto) % (45.0-75.0) Lymphocytes (%) (Auto) % (20.0-45.0) Monocytes (%) (Auto) % (1.0-10.0) Eosinophils (%) (Auto) % (0.0-3.0) Basophils (%) (Auto) % (0.0-2.0) Differential Total Cells Counted 100 Neutrophils % (Manual) 10 % (45-75) L Lymphocytes % (Manual) 68 % (20-45) H Monocytes % (Manual) 6 % (1-10) Eosinophils % (Manual) 0 % (0-3) Basophils % (Manual) 0 % (0-2) Blast Cells % 14 % (0-0) *H Band Neutrophils 2 % (0-8) Smudge Cells Occasional Platelet Estimate Decreased L Platelet Morphology Normal Anisocytosis 1+ Sodium Level 137 MMOL/L (136-145) Potassium Level 4.0 MMOL/L (3.5-5.1) Chloride Level 102 MMOL/L (98-107) Carbon Dioxide Level 25 MMOL/L (21-32) Anion Gap 10 mmol/L (5-15) Blood Urea Nitrogen 17 mg/dL (7-18) Creatinine 1.4 MG/DL (0.55-1.30) H Estimat Glomerular Filtration Rate > 60 mL/min (>60) Glucose Level 104 MG/DL (74-106) Calcium Level 8.3 MG/DL (8.5-10.1) L Vancomycin Level Trough 9.9 ug/mL (5.0-12.0) Current Medications Medications (Trade) Dose Ordered Sig/Curtis Route PRN Reason Start Time Stop Time Status Last Admin Dose Admin Acetaminophen (Tylenol) 650 mg Q4H PRN ORAL Mild Pain/Temp > 100.5 01/09/19 18:10 02/08/19 18:09 01/11/19 13:51 Albuterol/ Ipratropium (Albuterol/ Ipratropium) 3 ml Q4HRT HHN 01/10/19 15:00 01/15/19 14:59 01/11/19 15:43 Piperacillin Sod/ Tazobactam Sod 4.5 gm/Dextrose 110 ml @ 27.5 mls/hr EVERY 8 HOURS IVPB 01/09/19 22:00 01/14/19 21:59 01/11/19 14:06 Sodium Chloride 1,000 ml @ 100 mls/hr Q10H IV 01/09/19 18:10 02/08/19 18:09 01/11/19 10:21 Vancomycin HCl (Vanco rx to dose) 1 ea DAILY PRN MISC Per rx protocol 01/10/19 09:00 02/08/19 16:14 Vancomycin HCl 1 gm/Dextrose 275 ml @ 183.708 mls/hr Q8H IVPB 01/11/19 14:00 01/16/19 13:59 01/11/19 14:06 Bradley Mccord M.D. Jan 11, 2019 18:54
--- NOTE | 2019-01-11 19:15 | Progress Note ---
DATE: 01/11/2019 SUBJECTIVE: This is an elderly male, came with cellulitis and pain. He is currently doing better. PHYSICAL EXAMINATION: VITAL SIGNS: Blood pressure is 134/92, pulse 100, and respirations 18. No fever. CHEST: Bilateral few crackles. CARDIOVASCULAR: Regular rhythm. ABDOMEN: Soft. EXTREMITIES: No CCE. NEUROLOGICAL: Generalized weakness. LABORATORY AND DIAGNOSTIC DATA: White counts are coming down 19,000, hemoglobin 9.5, hematocrit 26, platelets are 18,000. Chemistry panel sodium 137, potassium 4, BUN 17, creatinine , glucose 104. His toxicology report, vancomycin trough was 9. The patient blood cultures are growing Strep species. ASSESSMENT: 1. Cellulitis. 2. Sepsis. 3. Dehydration. PLAN: 1. Consider ID consult. 2. Continue current treatment, vancomycin. 3. Continue albuterol inhaler. 4. Discussed with ID yesterday. Vuaghn Barahona M.D. DR: Bryn JOB#: [id number] CC:
--- NOTE | 2019-01-11 19:25 | NUR ---
HAND-OFF: Report given to Elin Gibson RN. Patient stable.
--- NOTE | 2019-01-11 19:26 | NUR ---
NURSE NOTES: Endorsement received from PADMA Martino. Patient opens eyes spontaneously. On 2 LPM oxygen per nasal cannula. No shortness of breath. Afebrile. With left AC g 20 ongoing NS 100 ml/hr. Head of bed elevated. Bed locked and in low position. Call light within reach. Bed alarm on. Mother at bedside.
[2019-01-11 20:00] VITALS: BP 119/67
[2019-01-12] VITALS: BP 114/70
--- NOTE | 2019-01-12 | NUR ---
NURSE NOTES: Patient asleep. No shortness of breath. Wakes up when called by name. Head of bed kept elevated. Call light within reach. Bed alarm on
[2019-01-12] MEDS: Albuterol/Ipratropium 3ml neb HHN SCH ×6 (02:27→22:44)
--- NOTE | 2019-01-12 03:33 | NUR ---
NURSE NOTES: Bed bath, change of linens done. Patient tolerated activity.
[2019-01-12 04:00] VITALS: BP 104/70
[2019-01-12] MEDS: Piperacillin/Tazobactam 4.5 GM in D5W 110 ML IVPB SCH ×3 (05:37→21:29)
--- NOTE | 2019-01-12 06:54 | NUR ---
HAND-OFF: Report given to PADMA Martino per SBAR.
--- NOTE | 2019-01-12 07:00 | NUR ---
NURSE NOTES: Received patient from Elin Gibson RN. Patient in bed and asleep. On 2L NC. No s/s of respiratory distress. monitoring coordinator in placed. Urinal at bedside. Mother at bedside. Bed in lowest position locked with side rails up. Will continue to follow plan of care.
[2019-01-12 08:00] VITALS: BP 113/61
[2019-01-12 12:00] VITALS: BP 111/56
--- NOTE | 2019-01-12 13:35 | Cardiology Report ---
APPROVED REPORT EXAM: Two-dimensional and M-mode echocardiogram with Doppler and color Doppler. INDICATION Tachycardia M-Mode DIMENSIONS IVSd0.8 (0.7-1.1cm)Left Atrium (MM)3.5 (1.6-4.0cm) LVDd3.2 (3.5-5.6cm)Aortic Root3.4 (2.0-3.7cm) PWd0.8 (0.7-1.1cm)Aortic Cusp Exc.2.0 (1.5-2.0cm) LVDs1.5 (2.5-4.0cm) PWs1.6 cm Technically difficult study due to poor acoustic windows. Study quality precludes accurate assessment of regional wall motion. Normal left ventricular chamber size, systolic function and wall motion. Left ventricular ejection fraction estimated to be 65 %. No evidence of left ventricular hypertrophy. No evidence of pericardial effusion. All other cardiac chamber sizes are within normal limits. Normal appearing aortic, mitral, pulmonic and tricuspid valves. Mild mitral annulus and aortic root calcification. IVC is normal in size with physiological collapse. A color flow and spectral Doppler study was performed and revealed: No aortic insufficiency. No mitral regurgitation. Mitral inflow velocities indicates possible pseudo normalization pattern implying significant left ventricular diastolic dysfunction (Grade II). Trace tricuspid regurgitation. Tricuspid systolic velocities suggests peak right ventricular systolic pressure of 37 mmHg, consistent with mild pulmonary hypertension. Trace pulmonic regurgitation present.
--- NOTE | 2019-01-12 14:00 | NUR ---
NURSE NOTES: Called Dr. Barahona and left a message regarding about to get an order for stool softener for the patient since he has not had a bowel movement since admission. Awaiting for call back.
--- NOTE | 2019-01-12 15:34 | Cardiac Electrophysiology PN ---
Assessment/Plan Assessment/Plan 1. Tachycardia. In view of the patient's sepsis, elevated white count could be due to underlying infection. The patient was started on ceftriaxone and Zosyn. Further evaluation per ID. Echo EF 65%. HR better 2. Elevated white count of 146,000 as well as severe thrombocytopenia with platelet count only 6,000. Hematology evaluation noted. S/P BM Biopsy 3. Abdominal pain, elevated bilirubin of 1.2, and elevated AST and alkaline phosphatase. Evaluation per GI. 4. Down syndrome. Subjective Subjective In SR with no events. Objective Last 24 Hour Vital Signs Date Time Temp Pulse Resp B/P (MAP) Pulse Ox O2 Delivery O2 Flow Rate FiO2 01/12/19 15:25 88 16 98 Nasal Cannula 2.0 28 01/12/19 15:25 28 01/12/19 12:00 Nasal Cannula 2.0 01/12/19 12:00 97.9 90 20 111/56 (74) 98 01/12/19 11:45 92 01/12/19 11:24 85 18 100 Nasal Cannula 2.0 28 01/12/19 11:14 28 01/12/19 11:14 91 16 98 Nasal Cannula 2.0 28 01/12/19 08:00 98.2 96 20 113/61 (78) 92 01/12/19 08:00 Nasal Cannula 2.0 01/12/19 07:51 88 01/12/19 07:41 93 20 100 Nasal Cannula 2.0 28 01/12/19 07:32 28 01/12/19 07:32 99 Nasal Cannula 2.0 28 01/12/19 07:32 85 16 99 Nasal Cannula 2.0 28 01/12/19 07:32 Nasal Cannula 2.0 28 01/12/19 04:00 99.2 104 24 104/70 (81) 95 01/12/19 04:00 98 01/12/19 04:00 Nasal Cannula 2.0 01/12/19 02:38 86 20 100 Nasal Cannula 1.0 24 01/12/19 02:27 74 20 99 Nasal Cannula 1.0 24 01/12/19 00:00 Nasal Cannula 2.0 01/12/19 00:00 90 01/12/19 00:00 98.2 97 24 114/70 (85) 100 01/11/19 23:10 79 20 99 Nasal Cannula 1.0 24 01/11/19 22:56 88 20 98 Nasal Cannula 2.0 28 01/11/19 20:00 88 01/11/19 20:00 97.8 89 24 119/67 (84) 94 01/11/19 20:00 Nasal Cannula 2.0 01/11/19 19:28 85 20 100 Nasal Cannula 1.0 24 01/11/19 19:24 98 Nasal Cannula 2.0 28 01/11/19 19:24 Nasal Cannula 2.0 28 01/11/19 19:21 83 20 98 Nasal Cannula 2.0 28 01/11/19 16:00 97.0 89 22 121/66 (84) 99 01/11/19 16:00 Nasal Cannula 2.0 01/11/19 15:45 99 20 99 Nasal Cannula 2.0 28 01/11/19 15:44 88 01/11/19 15:38 65 20 97 Nasal Cannula 2.0 28 Intake and Output 01/11/19 01/12/19 19:00 07:00 Intake Total 1997.250 ml 1337.5 ml Output Total 680 ml Balance 1317.250 ml 1337.5 ml Intake Oral 440 ml IV Total 1557.250 ml 1337.5 ml Output Urine Total 680 ml # Voids 2 1 Microbiology Date/Time Source Procedure Growth Status 01/10/19 10:40 Urine,Clean Catch Urine Culture - Preliminary NO GROWTH AFTER 24 HOURS Resulted Objective HEAD AND NECK: No JVD. LUNGS: Clear. CARDIOVASCULAR: Tachycardic, S1 and S2 with no gallop. ABDOMEN: Soft. EXTREMITIES: No pitting edema. Ede Alexander MD Jan 12, 2019 15:34
--- NOTE | 2019-01-12 15:46 | Infectious Diseases Prog Note ---
Assessment/Plan Problems: (1) Cellulitis of neck Assessment & Plan: severe with significant swelling, due to invasive streptococcus spp , will continue zosyn empiric treatment for now . recommend ENT eval if symptoms worsen . CT neck no abscess (2) Cellulitis of cheek Assessment & Plan: with no underlying abscess , continue vancomycin and zosyn empirically (3) Sepsis Assessment & Plan: with significant leukocytosis , suspect due to bone marrow pathology ( ALL, AML) , Will continue zosyn empirically pending final blood cultures. had bone marrow biopsy , hematology is following (4) Thrombocytopenia Assessment & Plan: suspect bone marrow pathology and possible consumption due to sepsis . close monitor of platelets and transfuse if bleeding (5) Appendicitis Assessment & Plan: possible on CT ABD, already on zosyn ,recommend surgical eval (6) Lymphocytic leukemia, acute, B- and T-cell Assessment & Plan: based on bone marrow biopsy, complicated with thrombocytopenia and sepsis due to strep pyogenes , oncology is following Subjective Constitutional: Reports: no symptoms HEENT: Reports: no symptoms Respiratory: Reports: no symptoms Breasts: Reports: no symptoms Cardiovascular: Reports: no symptoms Gastrointestinal/Abdominal: Reports: no symptoms Genitourinary: Reports: no symptoms Neurologic: Reports: no symptoms Psychiatric: Reports: no symptoms Skin: Reports: no symptoms Endocrine: Reports: no symptoms Hematologic: Reports: no symptoms Musculoskeletal: Reports: no symptoms Allergies: Coded Allergies: No Known Allergies (Unverified , 09/09/17) Subjective feels better today , with less swelling in his neck , afebrile Objective Vital Signs Last 24 Hour Vital Signs Date Time Temp Pulse Resp B/P (MAP) Pulse Ox O2 Delivery O2 Flow Rate FiO2 01/12/19 15:25 88 16 98 Nasal Cannula 2.0 28 01/12/19 15:25 28 01/12/19 12:00 Nasal Cannula 2.0 01/12/19 12:00 97.9 90 20 111/56 (74) 98 01/12/19 11:45 92 01/12/19 11:24 85 18 100 Nasal Cannula 2.0 28 01/12/19 11:14 28 01/12/19 11:14 91 16 98 Nasal Cannula 2.0 28 01/12/19 08:00 98.2 96 20 113/61 (78) 92 01/12/19 08:00 Nasal Cannula 2.0 01/12/19 07:51 88 01/12/19 07:41 93 20 100 Nasal Cannula 2.0 28 01/12/19 07:32 28 01/12/19 07:32 99 Nasal Cannula 2.0 28 01/12/19 07:32 85 16 99 Nasal Cannula 2.0 28 01/12/19 07:32 Nasal Cannula 2.0 28 01/12/19 04:00 99.2 104 24 104/70 (81) 95 01/12/19 04:00 98 01/12/19 04:00 Nasal Cannula 2.0 01/12/19 02:38 86 20 100 Nasal Cannula 1.0 24 01/12/19 02:27 74 20 99 Nasal Cannula 1.0 24 01/12/19 00:00 Nasal Cannula 2.0 01/12/19 00:00 90 01/12/19 00:00 98.2 97 24 114/70 (85) 100 01/11/19 23:10 79 20 99 Nasal Cannula 1.0 24 01/11/19 22:56 88 20 98 Nasal Cannula 2.0 28 01/11/19 20:00 88 01/11/19 20:00 97.8 89 24 119/67 (84) 94 01/11/19 20:00 Nasal Cannula 2.0 01/11/19 19:28 85 20 100 Nasal Cannula 1.0 24 01/11/19 19:24 98 Nasal Cannula 2.0 28 01/11/19 19:24 Nasal Cannula 2.0 28 01/11/19 19:21 83 20 98 Nasal Cannula 2.0 28 01/11/19 16:00 97.0 89 22 121/66 (84) 99 01/11/19 16:00 Nasal Cannula 2.0 01/11/19 15:45 99 20 99 Nasal Cannula 2.0 28 01/11/19 15:44 88 Height (Feet): 5 Height (Inches): 5.00 Weight (Pounds): 200 General Appearance: WD/WN, no acute distress HEENT: normocephalic, atraumatic, anicteric, mucous membranes moist, PERRL, EOMI, pharynx normal, supple, other - left face and neck swelling Respiratory/Chest: chest wall non-tender, lungs clear, normal breath sounds, no respiratory distress, no accessory muscle use Cardiovascular: normal peripheral pulses, normal rate, regular rhythm, no gallop/murmur, no JVD Abdomen: normal bowel sounds, soft, non tender, no organomegaly, non distended , no mass, no scars Extremities: no cyanosis, no clubbing Skin: no rash, no lesions, no ulcers Neurologic/Psychiatric: alert, oriented x 3, responsive Lymphatic: no neck adenopathy, no groin adenopathy Musculoskeletal: normal muscle bulk, no effusion Microbiology Date/Time Source Procedure Growth Status 01/10/19 10:40 Urine,Clean Catch Urine Culture - Preliminary NO GROWTH AFTER 24 HOURS Resulted Current Medications Medications (Trade) Dose Ordered Sig/Curtis Route PRN Reason Start Time Stop Time Status Last Admin Dose Admin Acetaminophen (Tylenol) 650 mg Q4H PRN ORAL Mild Pain/Temp > 100.5 01/09/19 18:10 02/08/19 18:09 01/11/19 13:51 Albuterol/ Ipratropium (Albuterol/ Ipratropium) 3 ml Q4HRT HHN 01/10/19 15:00 01/15/19 14:59 01/12/19 15:25 Piperacillin Sod/ Tazobactam Sod 4.5 gm/Dextrose 110 ml @ 27.5 mls/hr EVERY 8 HOURS IVPB 01/09/19 22:00 01/14/19 21:59 01/12/19 14:18 Sodium Chloride 1,000 ml @ 100 mls/hr Q10H IV 01/09/19 18:10 02/08/19 18:09 01/12/19 15:33 Bradley Mccord M.D. Jan 12, 2019 15:46
[2019-01-12 16:00] VITALS: BP 103/58
--- NOTE | 2019-01-12 16:10 | NUR ---
NURSE NOTES: Dr. Barahona called back and received order for colace 100mg BID and milk of magnesia 30ml BID PRN for constipation. Orders carried out.
[2019-01-12] MEDS ORDERED: Milk of Magnesia 30ml Ud ORAL PRN (16:15)
--- NOTE | 2019-01-12 16:39 | General Progress Note ---
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 bone marrow biopsy, obtain final results, will take several days and transfer to higher level of care, discussed with patient, with mom, with pcp and with cm, with rn --> continues to have blasts in the bone marrow currently 30-60% --> will eval for DIC process, r/o elev coagulopathy, continue to eval closely --> will need 2d echo at hospital he will receive treatment --> likely will need a variation of the HYPER-CVAD regimen (combination of 5-6 drugs) given his young age and may have a good prognosis with a bone marrow transplant, at [facility] we do not offer this treatment --> final bone marrow results are pending, will discuss with pathology regarding pathology results --> have placed order to transfer to higher level of care as blasts are now noted on the peripheral smear, concerning for leukemia --> platelet goal >20k, and hgb goal >7 --> WBC trend: 72-->28-->19 --> consider hydroxyurea if wbc worsens in the near future, otherwise transfer to higher level of care # Thrombocytopenia - potential causes multifactorial likely due to leukemia/ lymphoma, also has splenomegaly --> Hep panel and HIV ordered --> CT A/P 1. Splenomegaly, with a craniocaudal diameter of 16.6 cm. Nonspecific mild adjacent mesenteric inflammatory stranding extending down the left paracolic gutter. --> Peripheral smear ordered to evaluate for blasts /schistocytes --> abx and other meds have been reviewed --> ok for ppx if plt >50k w/ either heparin or lovenox --> Transfuse if Plt < 20k and fever, or if Plt < 10k without fever --> PLT trend: 11-->6-->18-->12 # Anemia of chronic disease (or of iron deficiency) due to underlying chronic medical issues, multifactorial --> Anemia workup has been ordered --> No evidence of hemolysis is noted, peripheral smear has been reviewed. --> Hgb goal >7. Transfuse prn. --> Epogen or iron at this time is not particularly indicated --> Medications have been reviewed # Cellulitis of the neck with significant swelling --> on abx empirically # Sepsis with significant leukocytosis on abx as per ID --> appreciate id recs The timing of this note does not necessarily reflect the time of the patient was seen Greatly appreciate consultation! Subjective Allergies: Coded Allergies: No Known Allergies (Unverified , 09/09/17) Subjective 01/11: today, saw that the weekend cbc has been addended, and BLASTS are noted on it, up to 65%, have placed order to transfer to higher level of care 01/12: Patient seen by bedside, leukocytosis is trending down at 19 and plt at 18 today, no acute events Objective Last 24 Hour Vital Signs Date Time Temp Pulse Resp B/P (MAP) Pulse Ox O2 Delivery O2 Flow Rate FiO2 01/12/19 15:35 80 18 100 Nasal Cannula 2.0 28 01/12/19 15:25 88 16 98 Nasal Cannula 2.0 28 01/12/19 15:25 28 01/12/19 12:00 Nasal Cannula 2.0 01/12/19 12:00 97.9 90 20 111/56 (74) 98 01/12/19 11:45 92 01/12/19 11:24 85 18 100 Nasal Cannula 2.0 28 01/12/19 11:14 28 01/12/19 11:14 91 16 98 Nasal Cannula 2.0 28 01/12/19 08:00 98.2 96 20 113/61 (78) 92 01/12/19 08:00 Nasal Cannula 2.0 01/12/19 07:51 88 01/12/19 07:41 93 20 100 Nasal Cannula 2.0 28 01/12/19 07:32 28 01/12/19 07:32 99 Nasal Cannula 2.0 28 01/12/19 07:32 85 16 99 Nasal Cannula 2.0 28 01/12/19 07:32 Nasal Cannula 2.0 28 01/12/19 04:00 99.2 104 24 104/70 (81) 95 01/12/19 04:00 98 01/12/19 04:00 Nasal Cannula 2.0 01/12/19 02:38 86 20 100 Nasal Cannula 1.0 24 01/12/19 02:27 74 20 99 Nasal Cannula 1.0 24 01/12/19 00:00 Nasal Cannula 2.0 01/12/19 00:00 90 01/12/19 00:00 98.2 97 24 114/70 (85) 100 01/11/19 23:10 79 20 99 Nasal Cannula 1.0 24 01/11/19 22:56 88 20 98 Nasal Cannula 2.0 28 01/11/19 20:00 88 01/11/19 20:00 97.8 89 24 119/67 (84) 94 01/11/19 20:00 Nasal Cannula 2.0 01/11/19 19:28 85 20 100 Nasal Cannula 1.0 24 01/11/19 19:24 98 Nasal Cannula 2.0 28 01/11/19 19:24 Nasal Cannula 2.0 28 01/11/19 19:21 83 20 98 Nasal Cannula 2.0 28 Intake and Output 01/11/19 01/12/19 19:00 07:00 Intake Total 1997.250 ml 1337.5 ml Output Total 680 ml Balance 1317.250 ml 1337.5 ml Intake Oral 440 ml IV Total 1557.250 ml 1337.5 ml Output Urine Total 680 ml # Voids 2 1 Height (Feet): 5 Height (Inches): 5.00 Weight (Pounds): 200 Objective Physical Exam General Appearance: A+O x3, NAD HEENT: normocephalic, atraumatic, ++ left mandible cellulitis and swelling Neck: non-tender, normal alignment Respiratory/Chest: chest wall non-tender, lungs clear Cardiovascular/Chest: normal peripheral pulses, normal rate Abdomen: normal bowel sounds, non tender Extremities: normal range of motion Vital Signs Feliz Smallwood MD Jan 12, 2019 16:39
[2019-01-12] MEDS: Docusate 100mg cap ORAL SCH (17:18)
[2019-01-12] MEDS ORDERED: NS 275ml ONE (19:08)
[2019-01-12 19:12] LABS: HEMATOCRIT 21.2 % (42.0-52.0); HEMOGLOBIN 7.2 G/DL (14.2-18.0); MEAN CORPUSCULAR VOLUME 96 FL (80-99); RED BLOOD COUNT 2.21 M/UL (4.70-6.10); RED CELL DISTRIBUTION WIDTH 14.4 % (11.6-14.8); WHITE BLOOD COUNT 7.9 K/UL (4.8-10.8)
[2019-01-12 19:23] LABS: PLATELET COUNT 5 K/UL (150-450)
--- NOTE | 2019-01-12 19:28 | NUR ---
HAND-OFF: Report given to Carlos Valentin RN. Patient stable. Endorsed and aware of latest critical lab values (HGB, HCT, PLT).
--- NOTE | 2019-01-12 19:30 | NUR ---
NURSE NOTES: Received patient from TRISH RN. Awake A/OX3,4 .Watching TV. Family at bedside. on NC 2L with no SOB. Head of bed kept elevated. o2 saturation 97%.SR on monitor. vs stable. afebrile. Denies any pain at this time. but still noted swollen and redness on left side neck. IV to LAC G 20 infusing NS at 100cc/hr. using urinal.no s/s of bleeding at this time. will continue to monitor patient closely.
[2019-01-12 19:40] LABS: ANION GAP 7 mmol/L (5-15); BLOOD UREA NITROGEN 20 mg/dL (7-18); CALCIUM 8.2 MG/DL (8.5-10.1); CARBON DIOXIDE 30 MMOL/L (21-32); CHLORIDE 102 MMOL/L (98-107); CREATININE 1.4 MG/DL (0.55-1.30); POTASSIUM 4.5 MMOL/L (3.5-5.1); SODIUM 139 MMOL/L (136-145)
[2019-01-12 19:58] LABS: ALANINE AMINOTRANSFERASE 39 U/L (12-78); ALBUMIN 2.4 G/DL (3.4-5.0); ALBUMIN/GLOBULIN RATIO 0.7 (1.0-2.7); ALKALINE PHOSPHATASE 150 U/L (46-116); ASPARTATE AMINO TRANSFERASE 46 U/L (15-37); BILIRUBIN,TOTAL 0.9 MG/DL (0.2-1.0); FERRITIN 1568 NG/ML (8-388)
[2019-01-12 20:00] VITALS: BP 113/50
[2019-01-12 20:25] LABS: % IRON SATURATION 96 % (15-50); IRON 234 ug/dL (50-175); TOTAL IRON BINDING CAPACITY 245 ug/dL (250-450)
--- NOTE | 2019-01-12 20:43 | NUR ---
NURSE NOTES: Notified Dr. GOETZ regarding H&H 7.2/21.2 PLT 5 and obtained order that 1 unit platelets transfusion [facility] charge nurse RIKA frausto.
--- NOTE | 2019-01-12 23:00 | Discharge Summary ---
DATE OF ADMISSION: 01/09/2019 DATE OF DISCHARGE: 01/12/2019 HOSPITAL COURSE: This is a young 28-year-old mentally retarded Down syndrome person, who came to the emergency room for having possible pneumonia and cellulitis. The patient was found that he also has leukocytosis. The patient was initially started on IV antibiotics. Also was found to have leukopenia, thrombocytopenia, and leukocytosis. The patient was alert and awake. He is currently doing better. He was started on IV antibiotics. Also, he has lymph node biopsy as well as Oncology consult. The patient's white counts are currently 19,[address] Smallwood. The patient has probably acute leukemia and the patient is going to be transferred to the [facility]. Discussed with Dr. Johnson, who is going to take care of him. Transfer discussed with the charge nurse, protective services case worker, and family, who was at bedside. DISCHARGE DIAGNOSES: 1. Acute leukemia. 2. Down syndrome. DIET RESTRICTION: Regular diet. ACTIVITY: As tolerated. DISCHARGE MEDICATION: The patient is probably going to continue antibiotics. The patient can transfer to the med/surg floor. Discussed with mother, father, as well as Dr. Johnson, as well as Dr. Smallwood. Vaughn Barahona M.D. DR: TYREL JOB#: [id number] CC:
[2019-01-13] VITALS (7 sets, daily range): BP systolic 95–117; BP diastolic 47–72
--- NOTE | 2019-01-13 00:58 | NUR ---
NURSE NOTES: Patient asleep in bed in no acute distress noted. ST with HR of 111. BP 95/52 Temp 97.9F. No sign of pain. will continue to monitor.keep patient comfortable. According to blood bank that 1 unit platelet pheresis is not ready yet.
[2019-01-13] MEDS: Albuterol/Ipratropium 3ml neb HHN SCH ×6 (03:35→23:00)
--- NOTE | 2019-01-13 05:10 | NUR ---
NURSE NOTES: 1 unit plateletpheresis transfusion started. verified with 2 nurses. Vital signs are BP 117/72 HR 101 RR 18 Temp 98.1. Mother at bedside. will monitor for any adverse transfusion reactions.
--- NOTE | 2019-01-13 05:25 | NUR ---
NURSE NOTES: Vital signs checked after 15 Mins of blood transfusion. BP of 120/67 HR of 89 Temp 97.3F. will continue to monitor.
[2019-01-13] MEDS: Piperacillin/Tazobactam 4.5 GM in D5W 110 ML IVPB SCH ×3 (06:10→21:03)
--- NOTE | 2019-01-13 07:20 | NUR ---
HAND-OFF: Report given to PADMA RICHARD using SBAR.Patient is being transfused. No adverse reaction observed.
--- NOTE | 2019-01-13 07:21 | NUR ---
NURSE NOTES: Received patient from PADMA Pelayo. Patient VS stable at this time with no sign of acute distress. patient alert at this time. Patient showing sinus rhythm on the monitor at this time. Patient on NC 2L at this time with stable saturation of 97-98%. Patient has urinal at the bedside at this time. Patient skin intact except left neck and chin that are swollen and red at this time. Patient has cellulitis in this area. Patient has a left antecubital 20G PIV that is patent, asymptomatic, and running platelets at this time. Patient did not have labs drawn this morning. Will follow up with MD. Patient has an order to transfer to higher level of care for cancer treatment. Will follow up with social work case manager regarding status of transfer.
[2019-01-13] MEDS: Docusate 100mg cap ORAL SCH ×2 (08:38→17:27)
--- NOTE | 2019-01-13 11:23 | NUR ---
HAND-OFF: Report given to PADMA Adames. Patient VS stable at this time with no sign of acute distress. Patient complaining of headache. Patient given tylenol prior to transfer. Endorsed to follow up. Patient to be transfered when bed available at [facility]. Endorsed to follow up.
--- NOTE | 2019-01-13 11:24 | NUR ---
NURSE NOTES: Patient arrived to the unit around 1100, accompanied by family members and RNFlorencia. Vitals taken upon arrived to the unite; IV LAC Zosyn running; neck and chin swollen and red; urinal within reach; on nasal cannula at 2 liter; no sign of shortness of breath; no sign of distress; no sign of chest pain; side rails up x2, breaks engaged; call light within reach. Will keep monitoring.
[2019-01-13] MEDS ORDERED: Milk of Magnesia 30ml Ud ORAL PRN (11:30)
--- NOTE | 2019-01-13 11:44 | NUR ---
MANAGER ENGINEFLAT LOCKER SI: ABDOMINAL PAIN, FACIAL CELLULITIS T. 98.2 HR 119 RR 18 B/P 117/72 2L NC O2 SAT @ 98% BUN 20 CR 1.4 AST 46 ALK PHOS 150 WBC 7.9 PLT 5 IS: ZOSYN IV IVF NS @ 100ML/HR COLACE TRANSFER TO HIGHER LEVEL OF CARE. MED/SURG STATUS
--- NOTE | 2019-01-13 12:45 | General Progress Note ---
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 bone marrow biopsy, obtain final results, will take several days and transfer to higher level of care, discussed with patient, with mom, with pcp and with cm, with rn --> continues to have blasts in the bone marrow currently 30-60% --> will eval for DIC process, r/o elev coagulopathy, continue to eval closely --> will need 2d echo at hospital he will receive treatment --> likely will need a variation of the HYPER-CVAD regimen (combination of 5-6 drugs) given his young age and may have a good prognosis with a bone marrow transplant, at [facility] we do not offer this treatment --> final bone marrow results are pending, will discuss with pathology regarding pathology results --> have placed order to transfer to higher level of care as blasts are now noted on the peripheral smear, concerning for leukemia --> platelet goal >20k, and hgb goal >7 --> WBC trend: 72-->28-->19-->7.9 --> consider hydroxyurea if wbc worsens in the near future, otherwise transfer to higher level of care # Thrombocytopenia - potential causes multifactorial likely due to leukemia/ lymphoma, also has splenomegaly --> Hep panel pending HIV negative --> CT A/P 1. Splenomegaly, with a craniocaudal diameter of 16.6 cm. Nonspecific mild adjacent mesenteric inflammatory stranding extending down the left paracolic gutter. --> Peripheral smear ordered to evaluate for blasts /schistocytes --> abx and other meds have been reviewed --> ok for ppx if plt >50k w/ either heparin or lovenox --> Transfuse if Plt < 20k and fever, or if Plt < 10k without fever --> PLT trend: 11-->6-->18-->12-->5 # Anemia of chronic disease due to underlying chronic medical issues, multifactorial --> Anemia workup has been reviewed, ferritin 1568 --> No evidence of hemolysis is noted, peripheral smear has been reviewed. --> Hgb goal >7. Transfuse prn. --> Epogen or iron at this time is not particularly indicated --> Medications have been reviewed # Cellulitis of the neck with significant swelling --> on abx empirically # Sepsis with significant leukocytosis on abx as per ID --> appreciate id recs The timing of this note does not necessarily reflect the time of the patient was seen Greatly appreciate consultation! Subjective Allergies: Coded Allergies: No Known Allergies (Unverified , 09/09/17) Subjective 01/11: today, saw that the weekend cbc has been addended, and BLASTS are noted on it, up to 65%, have placed order to transfer to higher level of care 01/12: Patient seen by bedside, leukocytosis is trending down at 19 and plt at 18 today, no acute events 01/13: PLT down to 5, plateletpheresis transfusion done today, no events, leukocytosis resolved. Objective Last 24 Hour Vital Signs Date Time Temp Pulse Resp B/P (MAP) Pulse Ox O2 Delivery O2 Flow Rate FiO2 01/13/19 12:00 Nasal Cannula 2.0 01/13/19 11:39 84 20 96 Nasal Cannula 2.0 28 01/13/19 08:21 88 22 97 Nasal Cannula 2.0 28 01/13/19 08:12 Nasal Cannula 2.0 28 01/13/19 08:11 87 22 96 Nasal Cannula 2.0 28 01/13/19 08:11 97 Nasal Cannula 2.0 28 01/13/19 08:00 97.9 95 20 110/47 (68) 98 01/13/19 08:00 Nasal Cannula 2.0 01/13/19 07:42 88 01/13/19 04:00 Nasal Cannula 2.0 01/13/19 04:00 119 01/13/19 04:00 98.1 101 18 117/72 (87) 97 01/13/19 03:43 86 20 99 Nasal Cannula 2.0 28 01/13/19 03:32 96 20 97 Nasal Cannula 2.0 28 01/13/19 00:00 97.9 101 18 95/52 (66) 97 01/13/19 00:00 111 01/13/19 00:00 Nasal Cannula 2.0 01/12/19 22:59 77 20 99 Nasal Cannula 2.0 28 01/12/19 22:43 89 20 97 Nasal Cannula 2.0 28 01/12/19 20:18 79 20 99 Nasal Cannula 2.0 28 01/12/19 20:06 Nasal Cannula 2.0 28 01/12/19 20:06 76 20 96 Nasal Cannula 2.0 28 01/12/19 20:05 96 Nasal Cannula 2.0 28 01/12/19 20:00 104 01/12/19 20:00 97.9 90 20 113/50 (71) 97 01/12/19 20:00 Nasal Cannula 2.0 01/12/19 16:00 97.2 85 20 103/58 (73) 100 01/12/19 16:00 Nasal Cannula 2.0 01/12/19 15:35 80 18 100 Nasal Cannula 2.0 28 01/12/19 15:31 92 01/12/19 15:25 88 16 98 Nasal Cannula 2.0 28 01/12/19 15:25 28 Intake and Output 01/12/19 01/13/19 18:59 06:59 Intake Total 1586.75 ml 1737.5 ml Output Total 600 ml 1100 ml Balance 986.75 ml 637.5 ml Intake Oral 340 ml 400 ml IV Total 1246.75 ml 1337.5 ml Output Urine Total 600 ml 1100 ml # Voids 2 4 # Bowel Movements 2 Laboratory Tests 01/12/19 18:50: White Blood Count 7.9, Red Blood Count 2.21L, Hemoglobin 7.2L, Hematocrit 21.2L , Mean Corpuscular Volume 96, Mean Corpuscular Hemoglobin 32.7H, Mean Corpuscular Hemoglobin Concent 34.1, Red Cell Distribution Width 14.4, Platelet Count 5*L, Mean Platelet Volume , Neutrophils (%) (Auto) , Lymphocytes (%) (Auto ) , Monocytes (%) (Auto) , Eosinophils (%) (Auto) , Basophils (%) (Auto) , Differential Total Cells Counted 100, Neutrophils % (Manual) 11L, Lymphocytes % (Manual) 41, Monocytes % (Manual) 0L, Eosinophils % (Manual) 0, Basophils % ( Manual) 1, Blast Cells % 44*H, Band Neutrophils 3, Platelet Estimate DecreasedL , Platelet Morphology Normal, Red Blood Cell Morphology Normal, Sodium Level 139 , Potassium Level 4.5, Chloride Level 102, Carbon Dioxide Level 30, Anion Gap 7 , Blood Urea Nitrogen 20H, Creatinine 1.4H, Estimat Glomerular Filtration Rate > 60, Glucose Level 102, Uric Acid 4.4, Calcium Level 8.2L, Iron Level 234H, Total Iron Binding Capacity 245L, Percent Iron Saturation 96H, Unsaturated Iron Binding 11L, Ferritin 1568H, Total Bilirubin 0.9, Aspartate Amino Transf (AST/ SGOT) 46H, Alanine Aminotransferase (ALT/SGPT) 39, Alkaline Phosphatase 150H, Total Protein 5.9L, Albumin 2.4L, Globulin 3.5, Albumin/Globulin Ratio 0.7L, Folate 8.4L, Hepatitis A IgM Antibody [Pending], Hepatitis B Surface Antigen [ Pending], Hepatitis B Core IgM Antibody [Pending], Hepatitis C Antibody [Pending ], HIV (1&2) Antibody Rapid Negative Height (Feet): 5 Height (Inches): 5.00 Weight (Pounds): 202 Objective Physical Exam General Appearance: A+O x3, NAD HEENT: normocephalic, atraumatic, ++ left mandible cellulitis and swelling Neck: non-tender, normal alignment Respiratory/Chest: chest wall non-tender, lungs clear Cardiovascular/Chest: normal peripheral pulses, normal rate Abdomen: normal bowel sounds, non tender Extremities: normal range of motion Vital Signs Feliz Smallwood MD Jan 13, 2019 12:45
--- NOTE | 2019-01-13 16:08 | Cardiac Electrophysiology PN ---
Assessment/Plan Assessment/Plan 1. Sinus tachycardia. In view of the patient's sepsis, elevated white count could be due to underlying infection. The patient was started on ceftriaxone and Zosyn. Further evaluation per ID. Echo EF 65%. HR better 2. Elevated white count of 146,000 as well as severe thrombocytopenia with platelet count only 6,000. ACUTE B-cell LEUKEMIA versus LYMPHOMA on bone marrow biopsy, --> continues to have blasts in the bone marrow currently 30-60% 3. Abdominal pain, elevated bilirubin of 1.2, and elevated AST and alkaline phosphatase. Evaluation per GI. 4. Down syndrome. Subjective Subjective Comfortable in NAD. Objective Last 24 Hour Vital Signs Date Time Temp Pulse Resp B/P (MAP) Pulse Ox O2 Delivery O2 Flow Rate FiO2 01/13/19 16:00 98.4 88 19 97/57 (70) 97 01/13/19 15:50 92 20 97 Nasal Cannula 2.0 28 01/13/19 12:00 Nasal Cannula 2.0 01/13/19 11:39 84 20 96 Nasal Cannula 2.0 28 01/13/19 11:00 97.0 88 18 95/53 (67) 98 01/13/19 08:21 88 22 97 Nasal Cannula 2.0 28 01/13/19 08:12 Nasal Cannula 2.0 28 01/13/19 08:11 87 22 96 Nasal Cannula 2.0 28 01/13/19 08:11 97 Nasal Cannula 2.0 28 01/13/19 08:00 97.9 95 20 110/47 (68) 98 01/13/19 08:00 Nasal Cannula 2.0 01/13/19 07:42 88 01/13/19 04:00 Nasal Cannula 2.0 01/13/19 04:00 119 01/13/19 04:00 98.1 101 18 117/72 (87) 97 01/13/19 03:43 86 20 99 Nasal Cannula 2.0 28 01/13/19 03:32 96 20 97 Nasal Cannula 2.0 28 01/13/19 00:00 97.9 101 18 95/52 (66) 97 01/13/19 00:00 111 01/13/19 00:00 Nasal Cannula 2.0 01/12/19 22:59 77 20 99 Nasal Cannula 2.0 28 01/12/19 22:43 89 20 97 Nasal Cannula 2.0 28 01/12/19 20:18 79 20 99 Nasal Cannula 2.0 28 01/12/19 20:06 Nasal Cannula 2.0 28 01/12/19 20:06 76 20 96 Nasal Cannula 2.0 28 01/12/19 20:05 96 Nasal Cannula 2.0 28 01/12/19 20:00 104 01/12/19 20:00 97.9 90 20 113/50 (71) 97 01/12/19 20:00 Nasal Cannula 2.0 Intake and Output 01/12/19 01/13/19 19:00 07:00 Intake Total 1614.25 ml 1737.5 ml Output Total 600 ml 1100 ml Balance 1014.25 ml 637.5 ml Intake Oral 340 ml 400 ml IV Total 1274.25 ml 1337.5 ml Output Urine Total 600 ml 1100 ml # Voids 2 4 # Bowel Movements 2 Laboratory Tests Test 01/12/19 18:50 White Blood Count 7.9 K/UL (4.8-10.8) Red Blood Count 2.21 M/UL (4.70-6.10) L Hemoglobin 7.2 G/DL (14.2-18.0) L Hematocrit 21.2 % (42.0-52.0) L Mean Corpuscular Volume 96 FL (80-99) Mean Corpuscular Hemoglobin 32.7 PG (27.0-31.0) H Mean Corpuscular Hemoglobin Concent 34.1 G/DL (32.0-36.0) Red Cell Distribution Width 14.4 % (11.6-14.8) Platelet Count 5 K/UL (150-450) *L Mean Platelet Volume FL (6.5-10.1) Neutrophils (%) (Auto) % (45.0-75.0) Lymphocytes (%) (Auto) % (20.0-45.0) Monocytes (%) (Auto) % (1.0-10.0) Eosinophils (%) (Auto) % (0.0-3.0) Basophils (%) (Auto) % (0.0-2.0) Differential Total Cells Counted 100 Neutrophils % (Manual) 11 % (45-75) L Lymphocytes % (Manual) 41 % (20-45) Monocytes % (Manual) 0 % (1-10) L Eosinophils % (Manual) 0 % (0-3) Basophils % (Manual) 1 % (0-2) Blast Cells % 44 % (0-0) *H Band Neutrophils 3 % (0-8) Platelet Estimate Decreased L Platelet Morphology Normal Red Blood Cell Morphology Normal Sodium Level 139 MMOL/L (136-145) Potassium Level 4.5 MMOL/L (3.5-5.1) Chloride Level 102 MMOL/L (98-107) Carbon Dioxide Level 30 MMOL/L (21-32) Anion Gap 7 mmol/L (5-15) Blood Urea Nitrogen 20 mg/dL (7-18) H Creatinine 1.4 MG/DL (0.55-1.30) H Estimat Glomerular Filtration Rate > 60 mL/min (>60) Glucose Level 102 MG/DL (74-106) Uric Acid 4.4 MG/DL (2.6-7.2) Calcium Level 8.2 MG/DL (8.5-10.1) L Iron Level 234 ug/dL (50-175) H Total Iron Binding Capacity 245 ug/dL (250-450) L Percent Iron Saturation 96 % (15-50) H Unsaturated Iron Binding 11 ug/dL (112-346) L Ferritin 1568 NG/ML (8-388) H Total Bilirubin 0.9 MG/DL (0.2-1.0) Aspartate Amino Transf (AST/SGOT) 46 U/L (15-37) H Alanine Aminotransferase (ALT/SGPT) 39 U/L (12-78) Alkaline Phosphatase 150 U/L (46-116) H Total Protein 5.9 G/DL (6.4-8.2) L Albumin 2.4 G/DL (3.4-5.0) L Globulin 3.5 g/dL Albumin/Globulin Ratio 0.7 (1.0-2.7) L Folate 8.4 NG/ML (8.6-58.9) L Hepatitis A IgM Antibody Pending Hepatitis B Surface Antigen Pending Hepatitis B Core IgM Antibody Pending Hepatitis C Antibody Pending HIV (1&2) Antibody Rapid Negative (NEGATIVE) Objective HEAD AND NECK: No JVD. LUNGS: Clear. CARDIOVASCULAR: Regular S1 and S2 with no gallop. ABDOMEN: Soft. EXTREMITIES: No pitting edema. Ede Alexander MD Jan 13, 2019 16:08
--- NOTE | 2019-01-13 17:19 | Infectious Diseases Prog Note ---
Assessment/Plan Problems: (1) Cellulitis of neck Assessment & Plan: severe with significant swelling, due to invasive streptococcus spp , will continue zosyn empiric treatment for now . recommend ENT eval if symptoms worsen . CT neck no abscess (2) Cellulitis of cheek Assessment & Plan: with no underlying abscess , continue vancomycin and zosyn empirically (3) Sepsis Assessment & Plan: with significant leukocytosis , suspect due to bone marrow pathology ( ALL, AML) , Will continue zosyn empirically pending final blood cultures. had bone marrow biopsy , hematology is following (4) Thrombocytopenia Assessment & Plan: suspect bone marrow pathology and possible consumption due to sepsis . close monitor of platelets and transfuse if bleeding (5) Appendicitis Assessment & Plan: possible on CT ABD, already on zosyn ,recommend surgical eval (6) Lymphocytic leukemia, acute, B- and T-cell Assessment & Plan: based on bone marrow biopsy, complicated with thrombocytopenia and sepsis due to strep pyogenes , oncology is following Subjective ROS Limited/Unobtainable: Yes Constitutional: Reports: fatigue, anorexia HEENT: Reports: no symptoms Respiratory: Reports: no symptoms Breasts: Reports: no symptoms Cardiovascular: Reports: no symptoms Gastrointestinal/Abdominal: Reports: no symptoms Genitourinary: Reports: no symptoms Skin: Reports: no symptoms Allergies: Coded Allergies: No Known Allergies (Unverified , 09/09/17) Subjective feels better today , with less swelling in his neck , afebrile Objective Vital Signs Last 24 Hour Vital Signs Date Time Temp Pulse Resp B/P (MAP) Pulse Ox O2 Delivery O2 Flow Rate FiO2 01/13/19 16:00 Nasal Cannula 2.0 01/13/19 16:00 98.4 88 19 97/57 (70) 97 01/13/19 15:50 92 20 97 Nasal Cannula 2.0 28 01/13/19 12:00 Nasal Cannula 2.0 01/13/19 11:39 84 20 96 Nasal Cannula 2.0 28 01/13/19 11:00 97.0 88 18 95/53 (67) 98 01/13/19 08:21 88 22 97 Nasal Cannula 2.0 28 01/13/19 08:12 Nasal Cannula 2.0 28 01/13/19 08:11 87 22 96 Nasal Cannula 2.0 28 01/13/19 08:11 97 Nasal Cannula 2.0 28 01/13/19 08:00 97.9 95 20 110/47 (68) 98 01/13/19 08:00 Nasal Cannula 2.0 01/13/19 07:42 88 01/13/19 04:00 Nasal Cannula 2.0 01/13/19 04:00 119 01/13/19 04:00 98.1 101 18 117/72 (87) 97 01/13/19 03:43 86 20 99 Nasal Cannula 2.0 28 01/13/19 03:32 96 20 97 Nasal Cannula 2.0 28 01/13/19 00:00 97.9 101 18 95/52 (66) 97 01/13/19 00:00 111 01/13/19 00:00 Nasal Cannula 2.0 01/12/19 22:59 77 20 99 Nasal Cannula 2.0 28 01/12/19 22:43 89 20 97 Nasal Cannula 2.0 28 01/12/19 20:18 79 20 99 Nasal Cannula 2.0 28 01/12/19 20:06 Nasal Cannula 2.0 28 01/12/19 20:06 76 20 96 Nasal Cannula 2.0 28 01/12/19 20:05 96 Nasal Cannula 2.0 28 01/12/19 20:00 104 01/12/19 20:00 97.9 90 20 113/50 (71) 97 01/12/19 20:00 Nasal Cannula 2.0 Height (Feet): 5 Height (Inches): 5.00 Weight (Pounds): 202 Laboratory Tests Test 01/12/19 18:50 White Blood Count 7.9 K/UL (4.8-10.8) Red Blood Count 2.21 M/UL (4.70-6.10) L Hemoglobin 7.2 G/DL (14.2-18.0) L Hematocrit 21.2 % (42.0-52.0) L Mean Corpuscular Volume 96 FL (80-99) Mean Corpuscular Hemoglobin 32.7 PG (27.0-31.0) H Mean Corpuscular Hemoglobin Concent 34.1 G/DL (32.0-36.0) Red Cell Distribution Width 14.4 % (11.6-14.8) Platelet Count 5 K/UL (150-450) *L Mean Platelet Volume FL (6.5-10.1) Neutrophils (%) (Auto) % (45.0-75.0) Lymphocytes (%) (Auto) % (20.0-45.0) Monocytes (%) (Auto) % (1.0-10.0) Eosinophils (%) (Auto) % (0.0-3.0) Basophils (%) (Auto) % (0.0-2.0) Differential Total Cells Counted 100 Neutrophils % (Manual) 11 % (45-75) L Lymphocytes % (Manual) 41 % (20-45) Monocytes % (Manual) 0 % (1-10) L Eosinophils % (Manual) 0 % (0-3) Basophils % (Manual) 1 % (0-2) Blast Cells % 44 % (0-0) *H Band Neutrophils 3 % (0-8) Platelet Estimate Decreased L Platelet Morphology Normal Red Blood Cell Morphology Normal Sodium Level 139 MMOL/L (136-145) Potassium Level 4.5 MMOL/L (3.5-5.1) Chloride Level 102 MMOL/L (98-107) Carbon Dioxide Level 30 MMOL/L (21-32) Anion Gap 7 mmol/L (5-15) Blood Urea Nitrogen 20 mg/dL (7-18) H Creatinine 1.4 MG/DL (0.55-1.30) H Estimat Glomerular Filtration Rate > 60 mL/min (>60) Glucose Level 102 MG/DL (74-106) Uric Acid 4.4 MG/DL (2.6-7.2) Calcium Level 8.2 MG/DL (8.5-10.1) L Iron Level 234 ug/dL (50-175) H Total Iron Binding Capacity 245 ug/dL (250-450) L Percent Iron Saturation 96 % (15-50) H Unsaturated Iron Binding 11 ug/dL (112-346) L Ferritin 1568 NG/ML (8-388) H Total Bilirubin 0.9 MG/DL (0.2-1.0) Aspartate Amino Transf (AST/SGOT) 46 U/L (15-37) H Alanine Aminotransferase (ALT/SGPT) 39 U/L (12-78) Alkaline Phosphatase 150 U/L (46-116) H Total Protein 5.9 G/DL (6.4-8.2) L Albumin 2.4 G/DL (3.4-5.0) L Globulin 3.5 g/dL Albumin/Globulin Ratio 0.7 (1.0-2.7) L Folate 8.4 NG/ML (8.6-58.9) L Hepatitis A IgM Antibody Pending Hepatitis B Surface Antigen Pending Hepatitis B Core IgM Antibody Pending Hepatitis C Antibody Pending HIV (1&2) Antibody Rapid Negative (NEGATIVE) Current Medications Medications (Trade) Dose Ordered Sig/Curtis Route PRN Reason Start Time Stop Time Status Last Admin Dose Admin Acetaminophen (Tylenol) 650 mg Q4H PRN ORAL Mild Pain/Temp > 100.5 01/13/19 14:15 02/08/19 18:09 Albuterol/ Ipratropium (Albuterol/ Ipratropium) 3 ml Q4HRT HHN 01/13/19 11:30 01/15/19 11:29 01/13/19 15:50 Docusate Sodium (Colace) 100 mg TWICE A DAY ORAL 01/13/19 18:00 02/11/19 17:59 Magnesium Hydroxide (Mom) 30 ml BIDPRN PRN ORAL Constipation 01/13/19 11:30 02/11/19 11:29 Piperacillin Sod/ Tazobactam Sod 4.5 gm/Dextrose 110 ml @ 27.5 mls/hr EVERY 8 HOURS IVPB 01/13/19 14:00 01/19/19 13:59 01/13/19 12:59 Sodium Chloride 1,000 ml @ 100 mls/hr Q10H IV 01/13/19 11:30 02/08/19 18:09 01/13/19 12:46 Bradley Mccord M.D. Jan 13, 2019 17:19
--- NOTE | 2019-01-13 19:28 | NUR ---
HAND-OFF: Report given to PADMA Parkinson.
--- NOTE | 2019-01-13 19:45 | Progress Note ---
DATE: 01/13/2019 SUBJECTIVE: This is a 28-year-old male currently in bed, looks comfortable. No distress. Cough is improved. PHYSICAL EXAMINATION: VITAL SIGNS: Blood pressure is 117/72, pulse is 97, no fever. CHEST: Bilateral clear. CARDIOVASCULAR: Regular rhythm. ABDOMEN: Soft. EXTREMITIES: CCE. NEUROLOGICAL: Generalized weakness. LABORATORY AND DIAGNOSTIC DATA: White count 7.9, hemoglobin 7.2, hematocrit and platelets are now 5000. ASSESSMENT: 1. Possible leukemia. 2. Acute bronchitis. 3. Thrombocytopenia. 4. Down syndrome. PLAN: The patient is waiting for [facility] to transfer. The patient is going to be on tele medical floor. Continue current medical treatment. Discussed with Dr. Smallwood and supportive treatment. Continue Zosyn. Discussed with mother who is on bedside. Vaughn Barahona M.D. DR: Bryn JOB#: [id number] CC:
--- NOTE | 2019-01-13 20:41 | NUR ---
NURSE NOTES: Received patient awake,follows simple command,resting in bed,relatives at bedside.
[2019-01-14] VITALS: BP 107/66
[2019-01-14] MEDS: Albuterol/Ipratropium 3ml neb HHN SCH ×6 (03:14→23:21)
[2019-01-14 04:00] VITALS: BP 101/58
[2019-01-14] MEDS: Piperacillin/Tazobactam 4.5 GM in D5W 110 ML IVPB SCH ×2 (05:03→13:04)
--- NOTE | 2019-01-14 07:31 | NUR ---
HAND-OFF: Report given to Debbie Marcial RN.
--- NOTE | 2019-01-14 07:46 | NUR ---
NURSE NOTES: Patine alert x3, on nasal cannula at 2 liter, no sign of distress and shortness of breath; urinal within reach; family member at the bed side; IV LAC fluid is running; side rails up x2, breaks engaged, bed at lowest position. Will keep monitoring.
[2019-01-14 08:00] VITALS: BP 102/63
[2019-01-14] MEDS: Docusate 100mg cap ORAL SCH ×2 (09:05→17:15)
--- NOTE | 2019-01-14 11:17 | NUR ---
NURSE NOTES: Stool for C.Diff collected and send it to lab. Waiting for result.
[2019-01-14 12:00] VITALS: BP 94/58
--- NOTE | 2019-01-14 15:34 | General Progress Note ---
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 The total treatment time may take up to 2 years --> will recommend fertility preservation if indicated (sperm banking) as per patient/family wishes --> final bone marrow results are pending, will discuss with pathology regarding pathology results --> platelet goal >20k, and hgb goal >7 --> WBC trend: 72-->28-->19-->7.9 --> consider hydroxyurea if wbc worsens in the near future, otherwise transfer to higher level of care --> have discussed case with CM and with Burak Munoz at [facility], needs insurance auth first # Thrombocytopenia - potential causes multifactorial likely due to leukemia/ lymphoma, also has splenomegaly --> Hep panel pending HIV negative --> CT A/P 1. Splenomegaly, with a craniocaudal diameter of 16.6 cm. Nonspecific mild adjacent mesenteric inflammatory stranding extending down the left paracolic gutter. --> Peripheral smear ordered to evaluate for blasts /schistocytes --> abx and other meds have been reviewed --> ok for ppx if plt >50k w/ either heparin or lovenox --> Transfuse if Plt < 20k and fever, or if Plt < 10k without fever --> PLT trend: 11-->6-->18-->12-->5 # Anemia of chronic disease due to underlying chronic medical issues, multifactorial --> Anemia workup has been reviewed, ferritin [id number] --> No evidence of hemolysis is noted, peripheral smear has been reviewed. --> Hgb goal >7. Transfuse prn. --> Epogen or iron at this time is not particularly indicated --> Medications have been reviewed # Cellulitis of the neck with significant swelling --> on abx empirically # Sepsis with significant leukocytosis on abx as per ID --> appreciate id recs The timing of this note does not necessarily reflect the time of the patient was seen Greatly appreciate consultation! Subjective Constitutional: Denies: no symptoms, chills, diaphoresis, fever, malaise, weakness, other HEENT: Denies: no symptoms, eye pain, blurred vision, tearing, double vision, ear pain, ear discharge, nose pain, nose congestion, throat pain, throat swelling, mouth pain, mouth swelling, other Cardiovascular: Denies: no symptoms, chest pain, edema, irregular heart rate, lightheadedness, palpitations, syncope, other Gastrointestinal/Abdominal: Denies: no symptoms, abdomen distended, abdominal pain, black stools, tarry stools, blood in stool, constipated, diarrhea, difficulty swallowing, nausea, poor appetite, poor fluid intake, rectal bleeding , vomiting, other Genitourinary: Denies: no symptoms, burning, discharge, frequency, flank pain, hematuria, incontinence, pain, urgency, other Hematologic/Lymphatic: Denies: no symptoms, anemia, easy bleeding, easy bruising, other Allergies: Coded Allergies: No Known Allergies (Unverified , 09/09/17) Subjective 01/11: today, saw that the weekend cbc has been addended, and BLASTS are noted on it, up to 65%, have placed order to transfer to higher level of care 01/12: Patient seen by bedside, leukocytosis is trending down at 19 and plt at 18 today, no acute events 01/13: PLT down to 5, plateletpheresis transfusion done today, no events, leukocytosis resolved. 01/14: discussed case with mother in the r today, pending transfer to [facility] with auth for [facility] Objective Last 24 Hour Vital Signs Date Time Temp Pulse Resp B/P (MAP) Pulse Ox O2 Delivery O2 Flow Rate FiO2 01/14/19 12:03 85 20 99 Nasal Cannula 2.0 28 01/14/19 12:00 97.9 101 20 94/58 (70) 95 01/14/19 11:52 90 20 98 Nasal Cannula 2.0 28 01/14/19 09:00 Nasal Cannula 2.0 01/14/19 08:00 97.4 102 20 102/63 (76) 95 01/14/19 07:45 94 20 99 Nasal Cannula 2.0 28 01/14/19 07:41 Nasal Cannula 2.0 28 01/14/19 07:41 98 Nasal Cannula 2.0 28 01/14/19 07:35 97 20 98 Nasal Cannula 2.0 28 01/14/19 04:00 99.2 102 20 101/58 (72) 93 01/14/19 03:24 92 20 99 Nasal Cannula 2.0 28 01/14/19 03:14 91 20 96 Nasal Cannula 2.0 28 01/14/19 00:00 98.8 98 21 107/66 (80) 99 01/13/19 23:11 89 20 99 Nasal Cannula 2.0 28 01/13/19 23:00 87 20 97 Nasal Cannula 2.0 28 01/13/19 21:00 Nasal Cannula 2.0 01/13/19 20:15 Nasal Cannula 2.0 01/13/19 20:00 99.0 91 20 105/62 (76) 98 01/13/19 19:10 98 20 99 Nasal Cannula 2.0 28 01/13/19 19:00 97 Nasal Cannula 2.0 28 01/13/19 19:00 97 20 97 Nasal Cannula 2.0 28 01/13/19 19:00 Nasal Cannula 2.0 28 01/13/19 17:24 98.0 82 19 100/62 (75) 99 01/13/19 16:00 Nasal Cannula 2.0 01/13/19 16:00 98.4 88 19 97/57 (70) 97 01/13/19 15:50 92 20 97 Nasal Cannula 2.0 28 Intake and Output 01/13/19 01/14/19 18:59 06:59 Intake Total 937.5 ml 737.5 ml Output Total 1050 ml 225 ml Balance -112.5 ml 512.5 ml Intake Oral 500 ml IV Total 437.5 ml 737.5 ml Output Urine Total 1050 ml 225 ml # Bowel Movements 3 Height (Feet): 5 Height (Inches): 5.00 Weight (Pounds): 202 Objective Physical Exam General Appearance: A+O x3, NAD HEENT: normocephalic, atraumatic, ++ left mandible cellulitis and swelling, better Neck: non-tender, normal alignment Respiratory/Chest: chest wall non-tender, lungs clear Cardiovascular/Chest: normal peripheral pulses, normal rate Abdomen: normal bowel sounds, non tender Extremities: normal range of motion Vital Signs Feliz Smallwood MD Jan 14, 2019 15:34
--- NOTE | 2019-01-14 15:34 | Infectious Diseases Prog Note ---
Assessment/Plan Problems: (1) Cellulitis of neck Assessment & Plan: severe with significant swelling, due to invasive streptococcus spp , now improving, so we will switch zosyn empiric treatment to ceftriaxone to finish his course of treatment for two weeks . recommend ENT eval if symptoms worsen . CT neck no abscess (2) Cellulitis of cheek Assessment & Plan: with no underlying abscess , continue ceftriaxone to cover for his bacteremia too (3) Sepsis Assessment & Plan: with significant leukocytosis , suspect due to bone marrow pathology ( ALL, AML) , repeated blood culture on january 12 x2 is negative which confirm clearance . will switch zosyn empirically to ceftriaxone to finish his curse of treatment for two weeks . had bone marrow biopsy , hematology is following . EOT 01/26/19 (4) Thrombocytopenia Assessment & Plan: suspect bone marrow pathology and possible consumption due to sepsis . close monitor of platelets and transfuse if bleeding (5) Lymphocytic leukemia, acute, B- and T-cell Assessment & Plan: based on bone marrow biopsy, complicated with thrombocytopenia and sepsis due to strep pyogenes , oncology is following Subjective Constitutional: Reports: fatigue HEENT: Reports: other - left neck and cheek swelling Respiratory: Reports: no symptoms Breasts: Reports: no symptoms Cardiovascular: Reports: no symptoms Gastrointestinal/Abdominal: Reports: no symptoms Genitourinary: Reports: no symptoms Neurologic: Reports: no symptoms Psychiatric: Reports: no symptoms Skin: Reports: no symptoms Endocrine: Reports: no symptoms Hematologic: Reports: swollen lymph nodes, bleeding Musculoskeletal: Reports: pain Allergies: Coded Allergies: No Known Allergies (Unverified , 09/09/17) Subjective feels better everyday with less swelling in his neck , tolerated diet well, afebrile Objective Vital Signs Last 24 Hour Vital Signs Date Time Temp Pulse Resp B/P (MAP) Pulse Ox O2 Delivery O2 Flow Rate FiO2 01/14/19 12:03 85 20 99 Nasal Cannula 2.0 28 01/14/19 12:00 97.9 101 20 94/58 (70) 95 01/14/19 11:52 90 20 98 Nasal Cannula 2.0 28 01/14/19 09:00 Nasal Cannula 2.0 01/14/19 08:00 97.4 102 20 102/63 (76) 95 01/14/19 07:45 94 20 99 Nasal Cannula 2.0 28 01/14/19 07:41 Nasal Cannula 2.0 28 01/14/19 07:41 98 Nasal Cannula 2.0 28 01/14/19 07:35 97 20 98 Nasal Cannula 2.0 28 01/14/19 04:00 99.2 102 20 101/58 (72) 93 01/14/19 03:24 92 20 99 Nasal Cannula 2.0 28 01/14/19 03:14 91 20 96 Nasal Cannula 2.0 28 01/14/19 00:00 98.8 98 21 107/66 (80) 99 01/13/19 23:11 89 20 99 Nasal Cannula 2.0 28 01/13/19 23:00 87 20 97 Nasal Cannula 2.0 28 01/13/19 21:00 Nasal Cannula 2.0 01/13/19 20:15 Nasal Cannula 2.0 01/13/19 20:00 99.0 91 20 105/62 (76) 98 01/13/19 19:10 98 20 99 Nasal Cannula 2.0 28 01/13/19 19:00 97 Nasal Cannula 2.0 28 01/13/19 19:00 97 20 97 Nasal Cannula 2.0 28 01/13/19 19:00 Nasal Cannula 2.0 28 01/13/19 17:24 98.0 82 19 100/62 (75) 99 01/13/19 16:00 Nasal Cannula 2.0 01/13/19 16:00 98.4 88 19 97/57 (70) 97 01/13/19 15:50 92 20 97 Nasal Cannula 2.0 28 Height (Feet): 5 Height (Inches): 5.00 Weight (Pounds): 202 General Appearance: WD/WN, no acute distress HEENT: normocephalic, atraumatic, anicteric, mucous membranes moist, PERRL Respiratory/Chest: chest wall non-tender, no respiratory distress, no accessory muscle use, decreased breath sounds, crackles/rales Cardiovascular: normal peripheral pulses, normal rate, regular rhythm, no gallop/murmur, no JVD Abdomen: normal bowel sounds, soft, non tender, no organomegaly, non distended , no mass, no scars Extremities: no cyanosis, no clubbing Skin: no rash, no lesions, no ulcers Neurologic/Psychiatric: alert, oriented x 3, responsive Lymphatic: no neck adenopathy, no groin adenopathy Musculoskeletal: normal muscle bulk, no effusion Microbiology Date/Time Source Procedure Growth Status 01/12/19 14:35 Blood Blood Culture - Preliminary NO GROWTH AFTER 24 HOURS Resulted 01/12/19 14:15 Blood Blood Culture - Preliminary NO GROWTH AFTER 24 HOURS Resulted Current Medications Medications (Trade) Dose Ordered Sig/Curtis Route PRN Reason Start Time Stop Time Status Last Admin Dose Admin Acetaminophen (Tylenol) 650 mg Q4H PRN ORAL Mild Pain/Temp > 100.5 01/13/19 14:15 02/08/19 18:09 Albuterol/ Ipratropium (Albuterol/ Ipratropium) 3 ml Q4HRT HHN 01/13/19 11:30 01/15/19 11:29 01/14/19 11:53 Ceftriaxone Sodium 2 gm/ Dextrose 55 ml @ 110 mls/hr Q24H IVPB 01/14/19 16:00 01/21/19 15:59 Docusate Sodium (Colace) 100 mg TWICE A DAY ORAL 01/13/19 18:00 02/11/19 17:59 01/14/19 09:05 Magnesium Hydroxide (Mom) 30 ml BIDPRN PRN ORAL Constipation 01/13/19 11:30 02/11/19 11:29 Sodium Chloride 1,000 ml @ 100 mls/hr Q10H IV 01/13/19 11:30 02/08/19 18:09 01/14/19 07:30 Bradley Mccord M.D. Jan 14, 2019 15:34
[2019-01-14 16:00] VITALS: BP 100/54
[2019-01-14] MEDS: cefTRIAXone 2 GM in D5W 55 ML IVPB SCH (17:15)
--- NOTE | 2019-01-14 17:29 | Cardiac Electrophysiology PN ---
Assessment/Plan Assessment/Plan 1. Sinus tachycardia due to sepsis and Leukemia. Echo EF 65%. HR better 2. Elevated white count of 146,000 as well as severe thrombocytopenia with platelet count only 6,000. ACUTE B-cell LEUKEMIA versus LYMPHOMA on bone marrow biopsy, --> continues to have blasts in the bone marrow currently 30-60% 3. Abdominal pain, elevated bilirubin of 1.2, and elevated AST and alkaline phosphatase. Evaluation per GI. 4. Down syndrome. DW father Subjective Subjective Comfortable in NAD.father at bedside. No CP or SOB Objective Last 24 Hour Vital Signs Date Time Temp Pulse Resp B/P (MAP) Pulse Ox O2 Delivery O2 Flow Rate FiO2 01/14/19 16:00 97.2 90 20 100/54 (69) 99 01/14/19 15:48 90 22 99 Nasal Cannula 2.0 28 01/14/19 15:38 84 20 97 Nasal Cannula 2.0 28 01/14/19 12:03 85 20 99 Nasal Cannula 2.0 28 01/14/19 12:00 97.9 101 20 94/58 (70) 95 01/14/19 11:52 90 20 98 Nasal Cannula 2.0 28 01/14/19 09:00 Nasal Cannula 2.0 01/14/19 08:00 97.4 102 20 102/63 (76) 95 01/14/19 07:45 94 20 99 Nasal Cannula 2.0 28 01/14/19 07:41 Nasal Cannula 2.0 28 01/14/19 07:41 98 Nasal Cannula 2.0 28 01/14/19 07:35 97 20 98 Nasal Cannula 2.0 28 01/14/19 04:00 99.2 102 20 101/58 (72) 93 01/14/19 03:24 92 20 99 Nasal Cannula 2.0 28 01/14/19 03:14 91 20 96 Nasal Cannula 2.0 28 01/14/19 00:00 98.8 98 21 107/66 (80) 99 01/13/19 23:11 89 20 99 Nasal Cannula 2.0 28 01/13/19 23:00 87 20 97 Nasal Cannula 2.0 28 01/13/19 21:00 Nasal Cannula 2.0 01/13/19 20:15 Nasal Cannula 2.0 01/13/19 20:00 99.0 91 20 105/62 (76) 98 01/13/19 19:10 98 20 99 Nasal Cannula 2.0 28 01/13/19 19:00 97 Nasal Cannula 2.0 28 01/13/19 19:00 97 20 97 Nasal Cannula 2.0 28 01/13/19 19:00 Nasal Cannula 2.0 28 Intake and Output 01/13/19 01/14/19 18:59 06:59 Intake Total 937.5 ml 737.5 ml Output Total 1050 ml 225 ml Balance -112.5 ml 512.5 ml Intake Oral 500 ml IV Total 437.5 ml 737.5 ml Output Urine Total 1050 ml 225 ml # Bowel Movements 3 Microbiology Date/Time Source Procedure Growth Status 01/12/19 14:35 Blood Blood Culture - Preliminary NO GROWTH AFTER 24 HOURS Resulted 01/12/19 14:15 Blood Blood Culture - Preliminary NO GROWTH AFTER 24 HOURS Resulted Objective HEAD AND NECK: No JVD. LUNGS: Clear. CARDIOVASCULAR: Regular S1 and S2 with no gallop. ABDOMEN: Soft. EXTREMITIES: No pitting edema. Ede Alexander MD Jan 14, 2019 17:29
--- NOTE | 2019-01-14 19:42 | NUR ---
HAND-OFF: Report given to PADMA Parkinson.
--- NOTE | 2019-01-14 20:00 | NUR ---
NURSE NOTES: Received patient awake,alert,resting in bed,no SOB,relatives at bedside.
[2019-01-14 20:16] VITALS: BP 121/65
[2019-01-15] MEDS: Albuterol/Ipratropium 3ml neb HHN SCH ×3 (03:30→12:15)
[2019-01-15 04:00] VITALS: BP 102/68
--- NOTE | 2019-01-15 04:36 | Progress Note ---
DATE: 01/14/2019 SUBJECTIVE: This is a young male, who came and admitted in the hospital for leukocytosis, sepsis, and acute bronchitis. The patient's white counts are normal. He also had a thrombocytopenia. Possibly, the patient has leukemia, Hematology/Oncology consult was obtained and also had a bone marrow biopsy. The patient is going to transfer to the [facility]. Hematology/Oncology consult was obtained there. The patient is waiting for room. OBJECTIVE: VITAL SIGNS: His vital signs are stable. LABORATORY DATA: His white counts are currently normal at 7.9 and hemoglobin 7.2. ASSESSMENT: 1. Possible leukemia. 2. Mental retardation. 3. Down syndrome. PLAN: 1. Continue current treatment. 2. Discussed with father. Vaughn Barahona M.D. DR: MIGUELITO JOB#: [id number] CC:
[2019-01-15 07:24] LABS: HEMATOCRIT 19.4 % (42.0-52.0); MEAN CORPUSCULAR VOLUME 94 FL (80-99); PLATELET COUNT 17 K/UL (150-450); RED BLOOD COUNT 2.06 M/UL (4.70-6.10); RED CELL DISTRIBUTION WIDTH 13.9 % (11.6-14.8)
--- NOTE | 2019-01-15 07:26 | NUR ---
HAND-OFF: Report given to Savanna Sandra RN.
[2019-01-15 07:30] LABS: WHITE BLOOD COUNT 48.9 K/UL (4.8-10.8)
[2019-01-15 07:31] LABS: HEMOGLOBIN 6.9 G/DL (14.2-18.0)
[2019-01-15 07:39] LABS: ANION GAP 9 mmol/L (5-15); BLOOD UREA NITROGEN 18 mg/dL (7-18); CALCIUM 9.3 MG/DL (8.5-10.1); CARBON DIOXIDE 27 MMOL/L (21-32); CHLORIDE 102 MMOL/L (98-107); CREATININE 1.4 MG/DL (0.55-1.30); POTASSIUM 4.5 MMOL/L (3.5-5.1); SODIUM 138 MMOL/L (136-145)
[2019-01-15 08:00] VITALS: BP 137/77
[2019-01-15] MEDS: Docusate 100mg cap ORAL SCH ×2 (09:00→17:02)
--- NOTE | 2019-01-15 10:23 | NUR ---
NURSE NOTES: Received a call from [facility](Lab) regarding low h/h and high wbc result. Dr. Smallwood and shani notified. will follow up accordingly.
--- NOTE | 2019-01-15 11:21 | NUR ---
NURSE NOTES: Dr. mcleod called back regarding high wbc and received NNO. will continue to monitor
[2019-01-15 12:00] VITALS: BP 130/79
--- NOTE | 2019-01-15 14:05 | Cardiac Electrophysiology PN ---
Assessment/Plan Assessment/Plan 1. Sinus tachycardia due to anemia, sepsis and Leukemia. Echo EF 65%. HR better 2. Elevated white count of 146,000 as well as severe thrombocytopenia with platelet count only 6,000. ACUTE B-cell LEUKEMIA versus LYMPHOMA on bone marrow biopsy, --> continues to have blasts in the bone marrow currently 30-60% 3. Anemia, getting PRBC 4. Abdominal pain, elevated bilirubin of 1.2, and elevated AST and alkaline phosphatase. Evaluation per GI. 5. Down syndrome. CHRIS RN Subjective Subjective Comfortable in NAD No CP or SOB. PRBC pending. RN at bedside Objective Last 24 Hour Vital Signs Date Time Temp Pulse Resp B/P (MAP) Pulse Ox O2 Delivery O2 Flow Rate FiO2 01/15/19 12:00 98.6 81 19 130/79 (96) 100 01/15/19 09:32 Nasal Cannula 2.0 01/15/19 08:00 98.3 89 19 137/77 (97) 100 01/15/19 07:48 93 20 98 Nasal Cannula 2.0 28 01/15/19 07:47 97 Nasal Cannula 2.0 28 01/15/19 07:47 Nasal Cannula 2.0 28 01/15/19 07:40 96 22 97 Nasal Cannula 2.0 28 01/15/19 04:00 98.3 100 18 102/68 (79) 97 01/14/19 21:31 Nasal Cannula 2.0 01/14/19 20:16 98.6 95 18 121/65 (83) 98 01/14/19 19:58 91 20 98 Nasal Cannula 2.0 28 01/14/19 19:48 94 20 96 Nasal Cannula 2.0 28 01/14/19 19:45 Nasal Cannula 2.0 28 01/14/19 19:45 96 Nasal Cannula 2.0 28 01/14/19 16:00 97.2 90 20 100/54 (69) 99 01/14/19 15:48 90 22 99 Nasal Cannula 2.0 28 01/14/19 15:38 84 20 97 Nasal Cannula 2.0 28 Intake and Output 01/14/19 01/15/19 19:00 07:00 Intake Total 1010 ml 1540 ml Output Total 500 ml Balance 510 ml 1540 ml Intake Oral 300 ml 340 ml IV Total 710 ml 1200 ml Output Urine Total 500 ml # Voids 3 Laboratory Tests Test 01/15/19 05:30 White Blood Count 48.9 K/UL (4.8-10.8) *H Red Blood Count 2.06 M/UL (4.70-6.10) L Hemoglobin 6.9 G/DL (14.2-18.0) *L Hematocrit 19.4 % (42.0-52.0) L Mean Corpuscular Volume 94 FL (80-99) Mean Corpuscular Hemoglobin 33.5 PG (27.0-31.0) H Mean Corpuscular Hemoglobin Concent 35.6 G/DL (32.0-36.0) Red Cell Distribution Width 13.9 % (11.6-14.8) Platelet Count 17 K/UL (150-450) L Mean Platelet Volume 5.7 FL (6.5-10.1) L Neutrophils (%) (Auto) % (45.0-75.0) Lymphocytes (%) (Auto) % (20.0-45.0) Monocytes (%) (Auto) % (1.0-10.0) Eosinophils (%) (Auto) % (0.0-3.0) Basophils (%) (Auto) % (0.0-2.0) Differential Total Cells Counted 100 Neutrophils % (Manual) 4 % (45-75) L Lymphocytes % (Manual) 44 % (20-45) Monocytes % (Manual) 5 % (1-10) Eosinophils % (Manual) 0 % (0-3) Basophils % (Manual) 0 % (0-2) Blast Cells % 47 % (0-0) *H Band Neutrophils 0 % (0-8) Platelet Estimate Decreased L Platelet Morphology Normal Hypochromasia 4+ Anisocytosis 1+ Spherocytes 2+ Sodium Level 138 MMOL/L (136-145) Potassium Level 4.5 MMOL/L (3.5-5.1) Chloride Level 102 MMOL/L (98-107) Carbon Dioxide Level 27 MMOL/L (21-32) Anion Gap 9 mmol/L (5-15) Blood Urea Nitrogen 18 mg/dL (7-18) Creatinine 1.4 MG/DL (0.55-1.30) H Estimat Glomerular Filtration Rate > 60 mL/min (>60) Glucose Level 83 MG/DL (74-106) Calcium Level 9.3 MG/DL (8.5-10.1) Microbiology Date/Time Source Procedure Growth Status 01/12/19 14:35 Blood Blood Culture - Preliminary NO GROWTH AFTER 48 HOURS Resulted 01/12/19 14:15 Blood Blood Culture - Preliminary NO GROWTH AFTER 48 HOURS Resulted Objective HEAD AND NECK: No JVD. LUNGS: Clear. CARDIOVASCULAR: Regular S1 and S2 with no gallop. ABDOMEN: Soft. EXTREMITIES: No pitting edema. Ede Alexander MD Jan 15, 2019 14:05
--- NOTE | 2019-01-15 14:51 | NUR ---
NURSE NOTES: Dr. franco presented at the unit and informed him of pt's bloody stool this AM. will continue to monitor
[2019-01-15 16:00] VITALS: BP 127/81
--- NOTE | 2019-01-15 17:07 | General Progress Note ---
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 The total treatment time may take up to 2 years --> will recommend fertility preservation if indicated (sperm banking) as per patient/family wishes --> final bone marrow results are pending, will discuss with pathology regarding pathology results --> platelet goal >20k, and hgb goal >7 --> WBC trend: 72-->28-->19-->7.9 --> consider hydroxyurea if wbc worsens in the near future, otherwise transfer to higher level of care --> have discussed case with CM and with Burak Munoz at [facility], needs insurance auth first # Thrombocytopenia - potential causes multifactorial likely due to leukemia/ lymphoma, also has splenomegaly --> Hep panel pending HIV negative --> CT A/P 1. Splenomegaly, with a craniocaudal diameter of 16.6 cm. Nonspecific mild adjacent mesenteric inflammatory stranding extending down the left paracolic gutter. --> Peripheral smear ordered to evaluate for blasts /schistocytes --> abx and other meds have been reviewed --> ok for ppx if plt >50k w/ either heparin or lovenox --> Transfuse if Plt < 20k and fever, or if Plt < 10k without fever --> PLT trend: 11-->6-->18-->12-->5 # Anemia of chronic disease due to underlying chronic medical issues, multifactorial --> Anemia workup has been reviewed, ferritin 1568 --> No evidence of hemolysis is noted, peripheral smear has been reviewed. --> Hgb goal >7. Transfuse prn. --> Epogen or iron at this time is not particularly indicated --> Medications have been reviewed # Cellulitis of the neck with significant swelling --> on abx empirically # Sepsis with significant leukocytosis on abx as per ID --> appreciate id recs The timing of this note does not necessarily reflect the time of the patient was seen Greatly appreciate consultation! Subjective Constitutional: Denies: no symptoms, chills, diaphoresis, fever, malaise, weakness, other HEENT: Denies: no symptoms, eye pain, blurred vision, tearing, double vision, ear pain, ear discharge, nose pain, nose congestion, throat pain, throat swelling, mouth pain, mouth swelling, other Respiratory: Denies: no symptoms, cough, orthopnea, shortness of breath, SOB with excertion, SOB at rest, sputum, stridor, wheezing, other Gastrointestinal/Abdominal: Denies: no symptoms, abdomen distended, abdominal pain, black stools, tarry stools, blood in stool, constipated, diarrhea, difficulty swallowing, nausea, poor appetite, poor fluid intake, rectal bleeding , vomiting, other Genitourinary: Denies: no symptoms, burning, discharge, frequency, flank pain, hematuria, incontinence, pain, urgency, other Neurologic/Psychiatric: Denies: no symptoms, anxiety, depressed, emotional problems, headache, numbness, paresthesia, pre-existing deficit, seizure, tingling, tremors, weakness, other Endocrine: Denies: no symptoms, excessive sweating, flushing, intolerance to cold, intolerance to heat, increased hunger, increased thirst, increased urine, unexplained weight gain, unexplained weight loss, other Allergies: Coded Allergies: No Known Allergies (Unverified , 09/09/17) Subjective 01/11: today, saw that the weekend cbc has been addended, and BLASTS are noted on it, up to 65%, have placed order to transfer to higher level of care 01/12: Patient seen by bedside, leukocytosis is trending down at 19 and plt at 18 today, no acute events 01/13: PLT down to 5, plateletpheresis transfusion done today, no events, leukocytosis resolved. 01/14: discussed case with mother in the r today, pending transfer to [facility] with auth for [facility] 2ndprue 01/15: no events, discsused with DAD and MOM in the room his prognosis, requires transfer to higher level of care Objective Last 24 Hour Vital Signs Date Time Temp Pulse Resp B/P (MAP) Pulse Ox O2 Delivery O2 Flow Rate FiO2 01/15/19 16:00 98.1 83 18 127/81 (96) 100 01/15/19 12:00 98.6 81 19 130/79 (96) 100 01/15/19 09:32 Nasal Cannula 2.0 01/15/19 08:00 98.3 89 19 137/77 (97) 100 01/15/19 07:48 93 20 98 Nasal Cannula 2.0 28 01/15/19 07:47 97 Nasal Cannula 2.0 28 01/15/19 07:47 Nasal Cannula 2.0 28 01/15/19 07:40 96 22 97 Nasal Cannula 2.0 28 01/15/19 04:00 98.3 100 18 102/68 (79) 97 01/14/19 21:31 Nasal Cannula 2.0 01/14/19 20:16 98.6 95 18 121/65 (83) 98 01/14/19 19:58 91 20 98 Nasal Cannula 2.0 28 01/14/19 19:48 94 20 96 Nasal Cannula 2.0 28 01/14/19 19:45 Nasal Cannula 2.0 28 01/14/19 19:45 96 Nasal Cannula 2.0 28 Intake and Output 01/14/19 01/15/19 18:59 06:59 Intake Total 1037.5 ml 1440 ml Output Total 500 ml Balance 537.5 ml 1440 ml Intake Oral 300 ml 340 ml IV Total 737.5 ml 1100 ml Output Urine Total 500 ml # Voids 3 Laboratory Tests 01/15/19 05:30: White Blood Count 48.9*H, Red Blood Count 2.06L, Hemoglobin 6.9*L, Hematocrit 19.4L, Mean Corpuscular Volume 94, Mean Corpuscular Hemoglobin 33.5H, Mean Corpuscular Hemoglobin Concent 35.6, Red Cell Distribution Width 13.9, Platelet Count 17L, Mean Platelet Volume 5.7L, Neutrophils (%) (Auto) , Lymphocytes (%) ( Auto) , Monocytes (%) (Auto) , Eosinophils (%) (Auto) , Basophils (%) (Auto) , Differential Total Cells Counted 100, Neutrophils % (Manual) 4L, Lymphocytes % ( Manual) 44, Monocytes % (Manual) 5, Eosinophils % (Manual) 0, Basophils % ( Manual) 0, Blast Cells % 47*H, Band Neutrophils 0, Platelet Estimate DecreasedL , Platelet Morphology Normal, Hypochromasia 4+, Anisocytosis 1+, Spherocytes 2+ , Sodium Level 138, Potassium Level 4.5, Chloride Level 102, Carbon Dioxide Level 27, Anion Gap 9, Blood Urea Nitrogen 18, Creatinine 1.4H, Estimat Glomerular Filtration Rate > 60, Glucose Level 83, Calcium Level 9.3 Height (Feet): 5 Height (Inches): 5.00 Weight (Pounds): 202 Objective Physical Exam General Appearance: A+O x3, NAD HEENT: normocephalic, atraumatic, ++ left mandible cellulitis and swelling, better Neck: non-tender, normal alignment Respiratory/Chest: chest wall non-tender, lungs clear Cardiovascular/Chest: normal peripheral pulses, normal rate Abdomen: normal bowel sounds, non tender Extremities: normal range of motion Vital Signs Feliz Smallwood MD Jan 15, 2019 17:06
--- NOTE | 2019-01-15 18:09 | NUR ---
NURSE NOTES: pt is currently on blood transfusion and couldn't hang rocephine for 4pm scheduled. will endorse to next shift nurse to hang when the blood transfusion is infused.
--- NOTE | 2019-01-15 19:25 | NUR ---
HAND-OFF: Report given to PADMA Roth.
[2019-01-15 20:00] VITALS: BP 116/68
[2019-01-15] MEDS: cefTRIAXone 2 GM in D5W 55 ML IVPB SCH (20:30)
--- NOTE | 2019-01-15 21:30 | Progress Note ---
DATE: 01/15/2019 SUBJECTIVE: This is a young male who is currently having lower gastrointestinal bleed and rectal bleeding. He is alert and oriented. His white counts went up. OBJECTIVE: VITAL SIGNS: Blood pressure 130/79, pulse 82, and temperature is 98.6. CHEST: Bilaterally clear. CARDIOVASCULAR: Regular rhythm. ABDOMEN: Soft. EXTREMITIES: No CCE. NEUROLOGICAL: No focal deficit. LABORATORY DATA: Hemoglobin became low 9.5 to 6.9, hematocrit 19, and platelets are 17,000. Chemistry panel, BUN 18 and creatinine 1.4. ASSESSMENT: 1. Possible leukemia. 2. Leukocytosis. 3. Thrombocytosis. 4. Lower gastrointestinal bleed due to thrombocytopenia. PLAN: 1. Consider gastrointestinal consult. 2. We will transfuse him platelets and blood. 3. Waiting for transfer to [facility] for treatment. 4. Discussed with Dr. Johnson at [facility]. Vaughn Barahona M.D. DR: TYREL JOB#: [id number] CC:
[2019-01-16] VITALS: BP 124/99
--- NOTE | 2019-01-16 03:00 | NUR ---
NURSE NOTES: Mj called, said there is no bed available at this moment.
[2019-01-16 04:00] VITALS: BP 120/90
[2019-01-16 05:45] LABS: HEMATOCRIT 23.2 % (42.0-52.0); HEMOGLOBIN 7.8 G/DL (14.2-18.0); MEAN CORPUSCULAR VOLUME 94 FL (80-99); PLATELET COUNT 10 K/UL (150-450); RED BLOOD COUNT 2.46 M/UL (4.70-6.10); RED CELL DISTRIBUTION WIDTH 14.4 % (11.6-14.8)
[2019-01-16 06:04] LABS: WHITE BLOOD COUNT 50.9 K/UL (4.8-10.8)
[2019-01-16 06:08] LABS: ANION GAP 6 mmol/L (5-15); BLOOD UREA NITROGEN 17 mg/dL (7-18); CALCIUM 9.2 MG/DL (8.5-10.1); CARBON DIOXIDE 28 MMOL/L (21-32); CHLORIDE 102 MMOL/L (98-107); CREATININE 1.2 MG/DL (0.55-1.30); POTASSIUM 4.3 MMOL/L (3.5-5.1); SODIUM 136 MMOL/L (136-145)
--- NOTE | 2019-01-16 06:25 | NUR ---
NURSE NOTES: Pt noted with WBC of 50.[address] Bird.
[2019-01-16 06:29] LABS: INR 1.1 (0.9-1.1)
--- NOTE | 2019-01-16 07:30 | NUR ---
HAND-OFF: Report given to Catrina ROUSE.
--- NOTE | 2019-01-16 08:26 | NUR ---
NURSE NOTES: Patient is awake and alert,respirations unlabored, 02 on at @ 2L N/CIV fluids infusing as ordered,patient sitting up in bed and eating breakfast,bed alarm is on,call light within reach,family member in the room.
[2019-01-16 08:30] VITALS: BP 115/66
[2019-01-16] MEDS: Docusate 100mg cap ORAL SCH ×2 (08:36→18:30)
[2019-01-16 12:02] VITALS: BP 102/49
--- NOTE | 2019-01-16 14:57 | General Progress Note ---
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 The total treatment time may take up to 2 years --> will recommend fertility preservation if indicated (sperm banking) as per patient/family wishes --> final bone marrow results are pending, will discuss with pathology regarding pathology results --> platelet goal >20k, and hgb goal >7 --> WBC trend: 72-->28-->19-->7.9 --> consider hydroxyurea if wbc worsens in the near future, otherwise transfer to higher level of care --> have discussed case with CM and with Burak Munoz at [facility], needs insurance auth first # Thrombocytopenia - potential causes multifactorial likely due to leukemia/ lymphoma, also has splenomegaly --> Hep panel pending HIV negative --> CT A/P 1. Splenomegaly, with a craniocaudal diameter of 16.6 cm. Nonspecific mild adjacent mesenteric inflammatory stranding extending down the left paracolic gutter. --> Peripheral smear ordered to evaluate for blasts /schistocytes --> abx and other meds have been reviewed --> ok for ppx if plt >50k w/ either heparin or lovenox --> Transfuse if Plt < 20k and fever, or if Plt < 10k without fever --> PLT trend: 11-->6-->18-->12-->5 # Anemia of chronic disease due to underlying chronic medical issues, multifactorial --> Anemia workup has been reviewed, ferritin 1568 --> No evidence of hemolysis is noted, peripheral smear has been reviewed. --> Hgb goal >7. Transfuse prn. --> Epogen or iron at this time is not particularly indicated --> Medications have been reviewed # Cellulitis of the neck with significant swelling --> on abx empirically # Sepsis with significant leukocytosis on abx as per ID --> appreciate id recs The timing of this note does not necessarily reflect the time of the patient was seen Greatly appreciate consultation! Subjective Constitutional: Denies: no symptoms, chills, diaphoresis, fever, malaise, weakness, other HEENT: Denies: no symptoms, eye pain, blurred vision, tearing, double vision, ear pain, ear discharge, nose pain, nose congestion, throat pain, throat swelling, mouth pain, mouth swelling, other Cardiovascular: Denies: no symptoms, chest pain, edema, irregular heart rate, lightheadedness, palpitations, syncope, other Respiratory: Denies: no symptoms, cough, orthopnea, shortness of breath, SOB with excertion, SOB at rest, sputum, stridor, wheezing, other Gastrointestinal/Abdominal: Denies: no symptoms, abdomen distended, abdominal pain, black stools, tarry stools, blood in stool, constipated, diarrhea, difficulty swallowing, nausea, poor appetite, poor fluid intake, rectal bleeding , vomiting, other Genitourinary: Denies: no symptoms, burning, discharge, frequency, flank pain, hematuria, incontinence, pain, urgency, other Neurologic/Psychiatric: Denies: no symptoms, anxiety, depressed, emotional problems, headache, numbness, paresthesia, pre-existing deficit, seizure, tingling, tremors, weakness, other Allergies: Coded Allergies: No Known Allergies (Unverified , 09/09/17) Subjective 01/11: today, saw that the weekend cbc has been addended, and BLASTS are noted on it, up to 65%, have placed order to transfer to higher level of care 01/12: Patient seen by bedside, leukocytosis is trending down at 19 and plt at 18 today, no acute events 01/13: PLT down to 5, plateletpheresis transfusion done today, no events, leukocytosis resolved. 01/14: discussed case with mother in the r today, pending transfer to [facility] with auth for [facility]ndary 01/15: no events, discsused with DAD and MOM in the room his prognosis, requires transfer to higher level of care 01/16: on hydroxyurea since wbc has skyrockets, have started it today Objective Last 24 Hour Vital Signs Date Time Temp Pulse Resp B/P (MAP) Pulse Ox O2 Delivery O2 Flow Rate FiO2 01/16/19 12:02 97.5 82 14 102/49 (66) 95 01/16/19 10:10 Nasal Cannula 2.0 01/16/19 08:30 97.9 91 19 115/66 (82) 95 01/16/19 04:00 98.0 85 20 120/90 (100) 96 01/16/19 00:00 99.6 84 18 124/99 (107) 98 01/15/19 21:00 Nasal Cannula 2.0 01/15/19 20:30 Nasal Cannula 2.0 28 01/15/19 20:30 99 Nasal Cannula 2.0 28 01/15/19 20:00 98.1 93 19 116/68 (84) 97 01/15/19 16:00 98.1 83 18 127/81 (96) 100 Intake and Output 01/15/19 01/16/19 19:00 07:00 Intake Total 1250 ml 655 ml Balance 1250 ml 655 ml Intake Oral 300 ml IV Total 600 ml 355 ml Other 650 ml # Voids 3 # Bowel Movements 1 Laboratory Tests 01/16/19 05:14: White Blood Count 50.9*H, Red Blood Count 2.46L, Hemoglobin 7.8L, Hematocrit 23.2L, Mean Corpuscular Volume 94, Mean Corpuscular Hemoglobin 31.6H, Mean Corpuscular Hemoglobin Concent 33.6, Red Cell Distribution Width 14.4, Platelet Count 10L, Mean Platelet Volume 7.0, Neutrophils (%) (Auto) , Lymphocytes (%) ( Auto) , Monocytes (%) (Auto) , Eosinophils (%) (Auto) , Basophils (%) (Auto) , Differential Total Cells Counted 100, Neutrophils % (Manual) 2L, Lymphocytes % ( Manual) 55H, Monocytes % (Manual) 1, Eosinophils % (Manual) 0, Basophils % ( Manual) 0, Blast Cells % 42*H, Band Neutrophils 0, Smudge Cells Occasional, Platelet Estimate DecreasedL, Platelet Morphology Normal, Anisocytosis 1+, Prothrombin Time 11.4, Prothromb Time International Ratio 1.1, Fibrinogen 315, Sodium Level 136, Potassium Level 4.3, Chloride Level 102, Carbon Dioxide Level 28, Anion Gap 6, Blood Urea Nitrogen 17, Creatinine 1.2, Estimat Glomerular Filtration Rate > 60, Glucose Level 87, Calcium Level 9.2 Height (Feet): 5 Height (Inches): 5.00 Weight (Pounds): 202 Objective PE General Appearance: A+O x3, NAD HEENT: normocephalic, atraumatic, ++ left mandible cellulitis and swelling, better Neck: non-tender, normal alignment Respiratory/Chest: chest wall non-tender, lungs clear Cardiovascular/Chest: normal peripheral pulses, normal rate Abdomen: normal bowel sounds, non tender Extremities: normal range of motion Vital Signs Feliz Smallwood MD Jan 16, 2019 14:57
[2019-01-16] MEDS ORDERED: Tubing IV Blood Pump IV ONE (15:12)
[2019-01-16] MEDS ORDERED: NS 500ML ONE (15:12)
[2019-01-16] MEDS ORDERED: Hydroxyurea 500mg cap ORAL SCH ×2 (15:15→18:00)
--- NOTE | 2019-01-16 16:00 | Infectious Diseases Prog Note ---
Assessment/Plan Problems: (1) Cellulitis of neck Assessment & Plan: severe with significant swelling, due to invasive streptococcus spp , now improving, on ceftriaxone to finish his course of treatment for two weeks . CT neck no abscess (2) Cellulitis of cheek Assessment & Plan: with no underlying abscess , continue ceftriaxone to cover for his bacteremia too (3) Sepsis Assessment & Plan: with significant leukocytosis , suspect due to bone marrow pathology ( ALL, AML) , repeated blood culture on january 12 x2 is negative which confirm clearance . will switch zosyn empirically to ceftriaxone to finish his curse of treatment for two weeks . had bone marrow biopsy , hematology is following . EOT 01/26/19 (4) Thrombocytopenia Assessment & Plan: suspect bone marrow pathology and possible consumption due to sepsis . close monitor of platelets and transfuse if bleeding (5) Lymphocytic leukemia, acute, B- and T-cell Assessment & Plan: based on bone marrow biopsy, complicated with thrombocytopenia and sepsis due to strep pyogenes , oncology is following Subjective Constitutional: Reports: no symptoms HEENT: Reports: other - mild left neck and cheek swelling Respiratory: Reports: no symptoms Breasts: Reports: no symptoms Cardiovascular: Reports: no symptoms Gastrointestinal/Abdominal: Reports: no symptoms Genitourinary: Reports: no symptoms Neurologic: Reports: no symptoms Psychiatric: Reports: no symptoms Skin: Reports: other - bruises Hematologic: Reports: no symptoms Musculoskeletal: Reports: no symptoms Allergies: Coded Allergies: No Known Allergies (Unverified , 09/09/17) Subjective feels better everyday with less swelling in his neck , tolerated diet well, afebrile Objective Vital Signs Last 24 Hour Vital Signs Date Time Temp Pulse Resp B/P (MAP) Pulse Ox O2 Delivery O2 Flow Rate FiO2 01/16/19 12:02 97.5 82 14 102/49 (66) 95 01/16/19 10:10 Nasal Cannula 2.0 01/16/19 08:30 97.9 91 19 115/66 (82) 95 01/16/19 04:00 98.0 85 20 120/90 (100) 96 01/16/19 00:00 99.6 84 18 124/99 (107) 98 01/15/19 21:00 Nasal Cannula 2.0 01/15/19 20:30 Nasal Cannula 2.0 28 01/15/19 20:30 99 Nasal Cannula 2.0 28 01/15/19 20:00 98.1 93 19 116/68 (84) 97 01/15/19 16:00 98.1 83 18 127/81 (96) 100 Height (Feet): 5 Height (Inches): 5.00 Weight (Pounds): 202 General Appearance: WD/WN, no acute distress HEENT: normocephalic, atraumatic, anicteric, mucous membranes moist, PERRL Respiratory/Chest: chest wall non-tender, lungs clear, normal breath sounds, no respiratory distress, no accessory muscle use Cardiovascular: normal peripheral pulses, normal rate, regular rhythm, no gallop/murmur, no JVD Abdomen: normal bowel sounds, soft, non tender, no organomegaly, non distended , no mass, no scars Extremities: no cyanosis, no clubbing Skin: no rash, no lesions, no ulcers Neurologic/Psychiatric: alert, responsive Lymphatic: no neck adenopathy, no groin adenopathy Musculoskeletal: normal muscle bulk, no effusion Laboratory Tests Test 01/16/19 05:14 White Blood Count 50.9 K/UL (4.8-10.8) *H Red Blood Count 2.46 M/UL (4.70-6.10) L Hemoglobin 7.8 G/DL (14.2-18.0) L Hematocrit 23.2 % (42.0-52.0) L Mean Corpuscular Volume 94 FL (80-99) Mean Corpuscular Hemoglobin 31.6 PG (27.0-31.0) H Mean Corpuscular Hemoglobin Concent 33.6 G/DL (32.0-36.0) Red Cell Distribution Width 14.4 % (11.6-14.8) Platelet Count 10 K/UL (150-450) L Mean Platelet Volume 7.0 FL (6.5-10.1) Neutrophils (%) (Auto) % (45.0-75.0) Lymphocytes (%) (Auto) % (20.0-45.0) Monocytes (%) (Auto) % (1.0-10.0) Eosinophils (%) (Auto) % (0.0-3.0) Basophils (%) (Auto) % (0.0-2.0) Differential Total Cells Counted 100 Neutrophils % (Manual) 2 % (45-75) L Lymphocytes % (Manual) 55 % (20-45) H Monocytes % (Manual) 1 % (1-10) Eosinophils % (Manual) 0 % (0-3) Basophils % (Manual) 0 % (0-2) Blast Cells % 42 % (0-0) *H Band Neutrophils 0 % (0-8) Smudge Cells Occasional Platelet Estimate Decreased L Platelet Morphology Normal Anisocytosis 1+ Prothrombin Time 11.4 SEC (9.30-11.50) Prothromb Time International Ratio 1.1 (0.9-1.1) Fibrinogen 315 mg/dL (200-400) Sodium Level 136 MMOL/L (136-145) Potassium Level 4.3 MMOL/L (3.5-5.1) Chloride Level 102 MMOL/L (98-107) Carbon Dioxide Level 28 MMOL/L (21-32) Anion Gap 6 mmol/L (5-15) Blood Urea Nitrogen 17 mg/dL (7-18) Creatinine 1.2 MG/DL (0.55-1.30) Estimat Glomerular Filtration Rate > 60 mL/min (>60) Glucose Level 87 MG/DL (74-106) Calcium Level 9.2 MG/DL (8.5-10.1) Current Medications Medications (Trade) Dose Ordered Sig/Curtis Route PRN Reason Start Time Stop Time Status Last Admin Dose Admin Acetaminophen (Tylenol) 650 mg Q4H PRN ORAL Mild Pain/Temp > 100.5 01/13/19 14:15 02/08/19 18:09 Ceftriaxone Sodium 2 gm/ Dextrose 55 ml @ 110 mls/hr Q24H IVPB 01/14/19 16:00 01/21/19 15:59 01/15/19 20:30 Docusate Sodium (Colace) 100 mg TWICE A DAY ORAL 01/13/19 18:00 02/11/19 17:59 01/16/19 08:36 Hydroxyurea (Hydrea) 500 mg ONCE ORAL 01/16/19 15:15 01/16/19 16:15 01/16/19 15:21 Hydroxyurea (Hydrea) 500 mg TWICE A DAY ORAL 01/16/19 18:00 01/21/19 17:59 Magnesium Hydroxide (Mom) 30 ml BIDPRN PRN ORAL Constipation 01/13/19 11:30 02/11/19 11:29 Methylprednisolone Sodium Succinate (Solu-MEDROL) 40 mg EVERY 12 HOURS IVP 01/16/19 21:00 02/15/19 20:59 Sodium Chloride 1,000 ml @ 100 mls/hr Q10H IV 01/13/19 11:30 02/08/19 18:09 01/16/19 11:58 Bradley Mccord M.D. Jan 16, 2019 16:00
[2019-01-16] MEDS: cefTRIAXone 2 GM in D5W 55 ML IVPB SCH (16:02)
[2019-01-16 16:08] VITALS: BP 120/75
--- NOTE | 2019-01-16 16:51 | NUR ---
PT Note PT sarah completed, tx initiated. Patient was able to ambulate with a FWW; gait is slightly unsteady. Patient can benefit from PT services to increase his muscle strength and balance to improve his safety in mobility to enable him to return to [facility]. Addendum: 01/16/19 at 1652 by LUKE GOEL PT Amended: Links added.
--- NOTE | 2019-01-16 17:52 | Cardiac Electrophysiology PN ---
Assessment/Plan Assessment/Plan 1. Sinus tachycardia due to anemia, sepsis and Leukemia. Echo EF 65%. HR better 2. Elevated white count of 146,000 as well as severe thrombocytopenia with platelet count only 6,000. ACUTE B-cell LEUKEMIA versus LYMPHOMA on bone marrow biopsy, --> continues to have blasts in the bone marrow currently 30-60% 3. Anemia, s/p PRBC 4. Abdominal pain, elevated bilirubin of 1.2, and elevated AST and alkaline phosphatase. Evaluation per GI. 5. Down syndrome. Subjective Subjective Comfortable in NAD S/P PRBC . Father at bedside Objective Last 24 Hour Vital Signs Date Time Temp Pulse Resp B/P (MAP) Pulse Ox O2 Delivery O2 Flow Rate FiO2 01/16/19 16:08 98.4 70 18 120/75 (90) 98 01/16/19 12:02 97.5 82 14 102/49 (66) 95 01/16/19 10:10 Nasal Cannula 2.0 01/16/19 08:30 97.9 91 19 115/66 (82) 95 01/16/19 04:00 98.0 85 20 120/90 (100) 96 01/16/19 00:00 99.6 84 18 124/99 (107) 98 01/15/19 21:00 Nasal Cannula 2.0 01/15/19 20:30 Nasal Cannula 2.0 28 01/15/19 20:30 99 Nasal Cannula 2.0 28 01/15/19 20:00 98.1 93 19 116/68 (84) 97 Intake and Output 01/15/19 01/16/19 18:59 06:59 Intake Total 1350 ml 655 ml Balance 1350 ml 655 ml Intake Oral 300 ml IV Total 700 ml 355 ml Other 650 ml # Voids 3 # Bowel Movements 1 Laboratory Tests Test 01/16/19 05:14 White Blood Count 50.9 K/UL (4.8-10.8) *H Red Blood Count 2.46 M/UL (4.70-6.10) L Hemoglobin 7.8 G/DL (14.2-18.0) L Hematocrit 23.2 % (42.0-52.0) L Mean Corpuscular Volume 94 FL (80-99) Mean Corpuscular Hemoglobin 31.6 PG (27.0-31.0) H Mean Corpuscular Hemoglobin Concent 33.6 G/DL (32.0-36.0) Red Cell Distribution Width 14.4 % (11.6-14.8) Platelet Count 10 K/UL (150-450) L Mean Platelet Volume 7.0 FL (6.5-10.1) Neutrophils (%) (Auto) % (45.0-75.0) Lymphocytes (%) (Auto) % (20.0-45.0) Monocytes (%) (Auto) % (1.0-10.0) Eosinophils (%) (Auto) % (0.0-3.0) Basophils (%) (Auto) % (0.0-2.0) Differential Total Cells Counted 100 Neutrophils % (Manual) 2 % (45-75) L Lymphocytes % (Manual) 55 % (20-45) H Monocytes % (Manual) 1 % (1-10) Eosinophils % (Manual) 0 % (0-3) Basophils % (Manual) 0 % (0-2) Blast Cells % 42 % (0-0) *H Band Neutrophils 0 % (0-8) Smudge Cells Occasional Platelet Estimate Decreased L Platelet Morphology Normal Anisocytosis 1+ Prothrombin Time 11.4 SEC (9.30-11.50) Prothromb Time International Ratio 1.1 (0.9-1.1) Fibrinogen 315 mg/dL (200-400) Sodium Level 136 MMOL/L (136-145) Potassium Level 4.3 MMOL/L (3.5-5.1) Chloride Level 102 MMOL/L (98-107) Carbon Dioxide Level 28 MMOL/L (21-32) Anion Gap 6 mmol/L (5-15) Blood Urea Nitrogen 17 mg/dL (7-18) Creatinine 1.2 MG/DL (0.55-1.30) Estimat Glomerular Filtration Rate > 60 mL/min (>60) Glucose Level 87 MG/DL (74-106) Calcium Level 9.2 MG/DL (8.5-10.1) Objective HEAD AND NECK: No JVD. LUNGS: Clear. CARDIOVASCULAR: Regular S1 and S2 with no gallop. ABDOMEN: Soft. EXTREMITIES: No pitting edema. Ede Alexander MD Jan 16, 2019 17:52
--- NOTE | 2019-01-16 19:06 | NUR ---
NURSE NOTES: Patient resting,no complaints at this time,iv fluids infusing,call light within reach.family in room.
--- NOTE | 2019-01-16 19:12 | NUR ---
HAND-OFF: Report given to Itzel ROUSE.
[2019-01-16 20:00] VITALS: BP 110/64
--- NOTE | 2019-01-16 20:00 | NUR ---
NURSE NOTES: Received patient in bed. On 2L O2 via N/C, no SOB, no acute distress. new IV on L wrist intact, patent running fluids, no infiltration. Pt has low platelet, no episode of active bleeding noted at this time. Bed in lowest position, locked, alarms on. Call light in reach. In calm mood, parents by bedside.
--- NOTE | 2019-01-16 20:15 | Progress Note ---
DATE: 01/16/2019 SUBJECTIVE: This is an elderly 28-year-old male, currently in the bed, comfortable, feeling fine. The patient is asymptomatic, but his white counts are going high at 50,000 today. Platelets are low. OBJECTIVE: VITAL SIGNS: Blood pressure 102/49. No fever. CHEST: Bilaterally clear. CARDIOVASCULAR: Regular rhythm. ABDOMEN: Soft. EXTREMITIES: CCE. NEUROLOGICAL: Generalized weakness. LABORATORY EXAMINATION: White counts are 51,000, hemoglobin 7.8, hematocrit 23, and platelets are 10,000. Has neutrophils 2%, lymphocytes 55%, and blast cells are 42%. ASSESSMENT AND PLAN: 1. Possible acute leukemia. 2. Mental retardation. 3. Down syndrome. PLAN: 1. We will discontinue IV antibiotics. 2. Address [facility]. 3. Discussed with charge nurse. 4. Also discussed with Dr. Smallwood. Vaughn Barahona M.D. DR: TYREL JOB#: [id number] CC:
[2019-01-16] MEDS: Solu-MEDROL 40mg Inj IVP SCH (21:01)
[2019-01-17] VITALS: BP 107/51
--- NOTE | 2019-01-17 01:05 | NUR ---
NURSE NOTES: Informed by [facility] via phone that still no bed available.
[2019-01-17 04:00] VITALS: BP 115/66
[2019-01-17 05:09] LABS: HEMATOCRIT 24.4 % (42.0-52.0); HEMOGLOBIN 8.4 G/DL (14.2-18.0); MEAN CORPUSCULAR VOLUME 94 FL (80-99); PLATELET COUNT 12 K/UL (150-450); RED CELL DISTRIBUTION WIDTH 14.1 % (11.6-14.8)
[2019-01-17 05:41] LABS: WHITE BLOOD COUNT 67.5 K/UL (4.8-10.8)
[2019-01-17 05:44] LABS: ANION GAP 7 mmol/L (5-15); BLOOD UREA NITROGEN 21 mg/dL (7-18); CARBON DIOXIDE 28 MMOL/L (21-32); CHLORIDE 102 MMOL/L (98-107); CREATININE 1.2 MG/DL (0.55-1.30); POTASSIUM 4.6 MMOL/L (3.5-5.1); SODIUM 137 MMOL/L (136-145)
--- NOTE | 2019-01-17 06:10 | NUR ---
NURSE NOTES: New WBC result noted at 67.5, left msg to Dr Smallwood.
[2019-01-17] MEDS ORDERED: Hydroxyurea 500mg cap ORAL STA (06:29)
--- NOTE | 2019-01-17 06:33 | NUR ---
NURSE NOTES: Received order from Dr Smallwood to increase Hydroxyurea 500mg to TID 1st dose stat. Carried out.
--- NOTE | 2019-01-17 07:25 | NUR ---
HAND-OFF: Report given to Catrina ROUSE.
[2019-01-17 08:18] VITALS: BP 107/72
--- NOTE | 2019-01-17 08:20 | NUR ---
NURSE NOTES: Patient is alert and oriented,respirations unlabored,02 on at 2L N/C.IV fluids infusing as ordered.Clarification on order patient to receive Hydrea 500 mg po tid.Patient receive Hydrea 500mg as stat by Night nurse,patient to receive the other two doses as schedule today and will continue to get the doses TID as ordered.Patient family in room.No complaint of pain at this time.
[2019-01-17] MEDS: Hydroxyurea 500mg cap ORAL SCH ×3 (08:26→18:20)
[2019-01-17] MEDS: Docusate 100mg cap ORAL SCH ×2 (09:24→18:20)
[2019-01-17] MEDS: Solu-MEDROL 40mg Inj IVP SCH (09:24)
[2019-01-17 12:18] VITALS: BP 108/61
--- NOTE | 2019-01-17 13:35 | NUR ---
RD ASSESSMENT & RECOMMENDATIONS SEE CARE ACTIVITY FOR COMPLETE ASSESSMENT DAILY ESTIMATED NEEDS: Needs based on Acute leukemia 69kg adj 25-30 kcals/kg 0539-9815 total kcals 1-2 g protein/kg 69-138 g total protein 25-30 mL/kg 7697-5005 total fluid mLs NUTRITION DIAGNOSIS: Altered nutrition related lab values r/t Acute leukemia and clinical status as evidenced by critically elev WBC (67.5*), low Hgb. CURRENT DIET: Soft diet PO DIET RECOMMENDATIONS: Regular diet/ texture as tolerated ADDITIONAL RECOMMENDATIONS: 1) Obtain a standing weight as able 2) Monitor BG on solumedrol ssi as needed 3) Check lytes daily, replete as needed
[2019-01-17 16:00] VITALS: BP 117/63
--- NOTE | 2019-01-17 16:22 | General Progress Note ---
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 The total treatment time may take up to 2 years --> will recommend fertility preservation if indicated (sperm banking) as per patient/family wishes --> final bone marrow results are pending, will discuss with pathology regarding pathology results --> platelet goal >20k, and hgb goal >7 --> WBC trend: 72-->28-->19-->7.9-->49k-->68k --> consider hydroxyurea if wbc worsens in the near future, otherwise transfer to higher level of care --> have discussed case with CM and with Burak Munoz at [facility], needs insurance auth first --> still pending transfer to [facility] # Thrombocytopenia - potential causes multifactorial likely due to leukemia/ lymphoma, also has splenomegaly --> Hep panel pending HIV negative --> CT A/P 1. Splenomegaly, with a craniocaudal diameter of 16.6 cm. Nonspecific mild adjacent mesenteric inflammatory stranding extending down the left paracolic gutter. --> Peripheral smear ordered to evaluate for blasts /schistocytes --> abx and other meds have been reviewed --> ok for ppx if plt >50k w/ either heparin or lovenox --> Transfuse if Plt < 20k and fever, or if Plt < 10k without fever --> PLT trend: 11-->6-->18-->12-->5 # Anemia of chronic disease due to underlying chronic medical issues, multifactorial --> Anemia workup has been reviewed, ferritin 1568 --> No evidence of hemolysis is noted, peripheral smear has been reviewed. --> Hgb goal >7. Transfuse prn. --> Epogen or iron at this time is not particularly indicated --> Medications have been reviewed # Cellulitis of the neck with significant swelling --> on abx empirically # Sepsis with significant leukocytosis on abx as per ID --> appreciate id recs The timing of this note does not necessarily reflect the time of the patient was seen Greatly appreciate consultation! Subjective Allergies: Coded Allergies: No Known Allergies (Unverified , 09/09/17) Subjective 01/11: today, saw that the weekend cbc has been addended, and BLASTS are noted on it, up to 65%, have placed order to transfer to higher level of care 01/12: Patient seen by bedside, leukocytosis is trending down at 19 and plt at 18 today, no acute events 01/13: PLT down to 5, plateletpheresis transfusion done today, no events, leukocytosis resolved. 01/14: discussed case with mother in the r today, pending transfer to [facility] with auth for HMO 2ndary 01/15: no events, discsused with DAD and MOM in the room his prognosis, requires transfer to higher level of care 01/16: on hydroxyurea since wbc has skyrockets, have started it today 01/17: wbc remains extremely elevated at this time, wbc was 65k+, have increased hydrea to tid Objective Last 24 Hour Vital Signs Date Time Temp Pulse Resp B/P (MAP) Pulse Ox O2 Delivery O2 Flow Rate FiO2 01/17/19 12:18 98.7 85 18 108/61 (77) 95 01/17/19 09:00 Nasal Cannula 2.0 01/17/19 08:18 97.4 84 18 107/72 (84) 96 01/17/19 04:00 98.1 99 21 115/66 (82) 94 01/17/19 00:00 98.7 95 20 107/51 (69) 95 01/16/19 21:00 Nasal Cannula 2.0 01/16/19 20:00 99.1 92 21 110/64 (79) 97 Intake and Output 01/16/19 01/17/19 19:00 07:00 Intake Total 2955 ml 1360 ml Output Total 400 ml Balance 2955 ml 960 ml Intake Oral 600 ml 260 ml IV Total 1155 ml 1100 ml Other 1200 ml Output Urine Total 400 ml Laboratory Tests 01/17/19 04:45: White Blood Count 67.5*H, Red Blood Count 2.60L, Hemoglobin 8.4L, Hematocrit 24.4L, Mean Corpuscular Volume 94, Mean Corpuscular Hemoglobin 32.2H, Mean Corpuscular Hemoglobin Concent 34.3, Red Cell Distribution Width 14.1, Platelet Count 12L, Mean Platelet Volume 7.9, Neutrophils (%) (Auto) , Lymphocytes (%) ( Auto) , Monocytes (%) (Auto) , Eosinophils (%) (Auto) , Basophils (%) (Auto) , Differential Total Cells Counted 100, Neutrophils % (Manual) 2L, Lymphocytes % ( Manual) 38, Monocytes % (Manual) 8, Eosinophils % (Manual) 0, Basophils % ( Manual) 0, Blast Cells % 52*H, Band Neutrophils 0, Smudge Cells Occasional, Platelet Estimate DecreasedL, Platelet Morphology Normal, Anisocytosis 1+, Sodium Level 137, Potassium Level 4.6, Chloride Level 102, Carbon Dioxide Level 28, Anion Gap 7, Blood Urea Nitrogen 21H, Creatinine 1.2, Estimat Glomerular Filtration Rate > 60, Glucose Level 138H, Calcium Level 9.0 Height (Feet): 5 Height (Inches): 5.00 Weight (Pounds): 202 Objective PE General Appearance: A+O x3, NAD HEENT: normocephalic, atraumatic, ++ left mandible cellulitis and swelling, better Neck: non-tender, normal alignment Respiratory/Chest: chest wall non-tender, lungs clear Cardiovascular/Chest: normal peripheral pulses, normal rate Abdomen: normal bowel sounds, non tender Extremities: normal range of motion Vital Signs Feliz Smallwood MD Jan 17, 2019 16:22
[2019-01-17] MEDS: cefTRIAXone 2 GM in D5W 55 ML IVPB SCH (16:32)
--- NOTE | 2019-01-17 17:38 | NUR ---
NURSE NOTES: [facility].They will have Doctor to Doctor report and will call back. [place] [facility] will call DR Smallwood.
--- NOTE | 2019-01-17 18:12 | NUR ---
CASE MANAGEMENT: REVIEW SI:SEPSIS. CELLULITIS. T 98.7 HR 85 RR 18 B/P 108/61 SATS 95% ON 2L/NC WBC 67.5 BUN 21 GLU 138 IS:IVF @ 100 mL/HR CEFTRIAXONE IV Q24H HYDREA PO TID MED/SURG STATUS
--- NOTE | 2019-01-17 18:43 | NUR ---
CHARGE NURSE NOTES: RECEIVED A CALL FROM PADMA SAMANO FROM [facility] STATING PATIENT IS BEING ACCEPTED TO [address] [place] [address], ROOM 49[address]. CD-IMAGING TO PROVIDE. NOTED. DR. MORTENSEN AND DR. ORONA AWARE. PATIENT AND FAMILY AWARE. Addendum: 01/17/19 at 1858 by YANDY BAHENA RN PER DR. ORONA, NO MED TO CONT. [facility] TO START. JAZMYNE ROUSE #[phone]
--- NOTE | 2019-01-17 19:45 | NUR ---
NURSE NOTES: Patient was transferred to [facility] by [facility] personnel,report was given to Franchesca Hayden .patient IV saline locked,ID hospital band removed.patient family at bed side,family has belongings.
--- NOTE | 2019-01-17 21:18 | Infectious Diseases Prog Note ---
Assessment/Plan Problems: (1) Cellulitis of neck Assessment & Plan: severe with significant swelling, due to invasive streptococcus spp , now improving, on ceftriaxone to finish his course of treatment for two weeks . CT neck no abscess (2) Cellulitis of cheek Assessment & Plan: with no underlying abscess , continue ceftriaxone to cover for his bacteremia too (3) Sepsis Assessment & Plan: with significant leukocytosis , suspect due to bone marrow pathology ( ALL, AML) , repeated blood culture on january 12 x2 is negative which confirm clearance . will switch zosyn empirically to ceftriaxone to finish his curse of treatment for two weeks . had bone marrow biopsy , hematology is following . EOT 01/26/19 (4) Thrombocytopenia Assessment & Plan: suspect bone marrow pathology and possible consumption due to sepsis . close monitor of platelets and transfuse if bleeding (5) Lymphocytic leukemia, acute, B- and T-cell Assessment & Plan: based on bone marrow biopsy, complicated with thrombocytopenia and sepsis due to strep pyogenes , oncology is following Subjective Constitutional: Reports: no symptoms HEENT: Reports: no symptoms Respiratory: Reports: no symptoms Breasts: Reports: no symptoms Cardiovascular: Reports: no symptoms Gastrointestinal/Abdominal: Reports: no symptoms Genitourinary: Reports: no symptoms Neurologic: Reports: no symptoms Psychiatric: Reports: no symptoms Skin: Reports: no symptoms Endocrine: Reports: no symptoms Hematologic: Reports: no symptoms Musculoskeletal: Reports: no symptoms Allergies: Coded Allergies: No Known Allergies (Unverified , 09/09/17) Subjective feels better everyday with less swelling in his neck , tolerated diet well, afebrile Objective Vital Signs Last 24 Hour Vital Signs Date Time Temp Pulse Resp B/P (MAP) Pulse Ox O2 Delivery O2 Flow Rate FiO2 01/17/19 16:00 98.6 92 18 117/63 (81) 92 01/17/19 12:18 98.7 85 18 108/61 (77) 95 01/17/19 09:00 Nasal Cannula 2.0 01/17/19 08:18 97.4 84 18 107/72 (84) 96 01/17/19 04:00 98.1 99 21 115/66 (82) 94 01/17/19 00:00 98.7 95 20 107/51 (69) 95 Height (Feet): 5 Height (Inches): 5.00 Weight (Pounds): 202 General Appearance: WD/WN, no acute distress HEENT: normocephalic, atraumatic, anicteric, mucous membranes moist, PERRL Respiratory/Chest: chest wall non-tender, lungs clear, normal breath sounds, no respiratory distress, no accessory muscle use Cardiovascular: normal peripheral pulses, normal rate, regular rhythm, no gallop/murmur, no JVD Abdomen: normal bowel sounds, soft, non tender, no organomegaly, non distended , no mass, no scars Genitourinary: normal external genitalia Extremities: no cyanosis, no clubbing Skin: no rash, no lesions, no ulcers Neurologic/Psychiatric: alert, oriented x 3, responsive Lymphatic: no neck adenopathy, no groin adenopathy Musculoskeletal: normal muscle bulk Laboratory Tests Test 01/17/19 04:45 White Blood Count 67.5 K/UL (4.8-10.8) *H Red Blood Count 2.60 M/UL (4.70-6.10) L Hemoglobin 8.4 G/DL (14.2-18.0) L Hematocrit 24.4 % (42.0-52.0) L Mean Corpuscular Volume 94 FL (80-99) Mean Corpuscular Hemoglobin 32.2 PG (27.0-31.0) H Mean Corpuscular Hemoglobin Concent 34.3 G/DL (32.0-36.0) Red Cell Distribution Width 14.1 % (11.6-14.8) Platelet Count 12 K/UL (150-450) L Mean Platelet Volume 7.9 FL (6.5-10.1) Neutrophils (%) (Auto) % (45.0-75.0) Lymphocytes (%) (Auto) % (20.0-45.0) Monocytes (%) (Auto) % (1.0-10.0) Eosinophils (%) (Auto) % (0.0-3.0) Basophils (%) (Auto) % (0.0-2.0) Differential Total Cells Counted 100 Neutrophils % (Manual) 2 % (45-75) L Lymphocytes % (Manual) 38 % (20-45) Monocytes % (Manual) 8 % (1-10) Eosinophils % (Manual) 0 % (0-3) Basophils % (Manual) 0 % (0-2) Blast Cells % 52 % (0-0) *H Band Neutrophils 0 % (0-8) Smudge Cells Occasional Platelet Estimate Decreased L Platelet Morphology Normal Anisocytosis 1+ Sodium Level 137 MMOL/L (136-145) Potassium Level 4.6 MMOL/L (3.5-5.1) Chloride Level 102 MMOL/L (98-107) Carbon Dioxide Level 28 MMOL/L (21-32) Anion Gap 7 mmol/L (5-15) Blood Urea Nitrogen 21 mg/dL (7-18) H Creatinine 1.2 MG/DL (0.55-1.30) Estimat Glomerular Filtration Rate > 60 mL/min (>60) Glucose Level 138 MG/DL (74-106) H Calcium Level 9.0 MG/DL (8.5-10.1) Current Medications Medications (Trade) Dose Ordered Sig/Curtis Route PRN Reason Start Time Stop Time Status Last Admin Dose Admin Acetaminophen (Tylenol) 650 mg Q4H PRN ORAL Mild Pain/Temp > 100.5 01/13/19 14:15 02/08/19 18:09 01/16/19 21:02 Ceftriaxone Sodium 2 gm/ Dextrose 55 ml @ 110 mls/hr Q24H IVPB 01/14/19 16:00 01/21/19 15:59 01/17/19 16:32 Docusate Sodium (Colace) 100 mg TWICE A DAY ORAL 01/13/19 18:00 02/11/19 17:59 01/17/19 18:20 Hydroxyurea (Hydrea) 500 mg TID ORAL 01/17/19 09:00 01/22/19 08:59 01/17/19 18:20 Magnesium Hydroxide (Mom) 30 ml BIDPRN PRN ORAL Constipation 01/13/19 11:30 02/11/19 11:29 Sodium Chloride 1,000 ml @ 100 mls/hr Q10H IV 01/13/19 11:30 02/08/19 18:09 01/17/19 16:38 Bradley Mccord M.D. Jan 17, 2019 21:18
--- NOTE | 2019-01-17 22:30 | Progress Note ---
DATE: 01/17/2019 SUBJECTIVE: The patient is a 28-year-old male currently sitting in the bed, feels comfortable, asymptomatic but the patient was PHYSICAL EXAMINATION: CHEST: Bilaterally clear. CARDIOVASCULAR: Regular rhythm. ABDOMEN: Soft. EXTREMITIES: CCE. PLAN: The patient was started on hydroxyurea. The patient is currently doing better, waiting for [facility] transfer. We will continue hydroxyurea. Continue current treatment . Vaughn Barahona M.D. DR: Bryn JOB#: [id number] CC:
--- NOTE | 2019-01-18 14:37 | Discharge Summary ---
Discharge Summary Hospital Course Date of Admission Jan 09, 2019 at 09:46 Date of Discharge Jan 17, 2019 at 19:45 Admitting Diagnosis ABDOMINAL PAIN HPI Micheal Alfaro is a 28 year old male who was admitted on Jan 09, 2019 at 09 :46 for Abdominal Pain Hospital Course see dc summary by dr Barahona FINAL DIAGNOSES sepsis cellulitis of neck cellulitis of cheek acute B cell leukemia/lymphoma thrombocytopenia anemia of chronic disease elevated LFT with abdominal pain Down syndrome Discharge Discharge Disposition Patient was discharged to [facility] for higher level of care Discharge Instructions Discharge Instructions Special Instructions I have been assigned to complete a D/C Summary on this account. I was not involved in the patient management Keiko Locke NP Jan 18, 2019 14:37
== END 2019-01-17 19:45 | disposition short-term general hospital (02) | DRG 872 ==
LOC: EMR 07:49 → 3E 09:46 → EDBEDREQ 11:02 → 2W 17:54 → 4E 01-13 10:52
PROC: 07DR3ZX Extraction of Iliac Bone Marrow, Percutaneous Approach, Diagnostic (ICD-10-PCS; principal; 2019-01-11)
DX: A41.9 Sepsis, unspecified organism (principal); L03.221 Cellulitis of neck; C91.00 Acute lymphoblastic leukemia not having achieved remission; L03.211 Cellulitis of face; Q90.9 Down syndrome, unspecified; R04.0 Epistaxis; D69.6 Thrombocytopenia, unspecified; R10.9 Unspecified abdominal pain; R94.5 Abnormal results of liver function studies; D64.9 Anemia, unspecified
CPT/HCPCS: 36415; 70491; 71045; 74176; 80048; 80053; 80202; 81003; 82248; 82607; 82728; 82746; 83010; 83090; 83540; 83550; 83615; 83690; 83880; 84439; 84443; 84550; 85007; 85025; 85044; 85060; 85384; 85610; 86703; 86705; 86709; 86803; 86850; 86900; 86901; 86920; 87040; 87086; 87181; 87324; 87340; 93005; 93306; 94640; 94664; 94760; 96361; 96365; 96375; 96376; 99285; J2405; J7620